=== PATIENT | male | born 1955 | race Caucasian/White ===

== ENCOUNTER → 2016-07-06 | Outpatient (CLI) | payer MEDICARE ==
[2016-07-06 19:04] LABS: ALT 34 U/L (21-72); AST 31 U/L (17-59); Alkaline Phosphatase 58 U/L (38-126); Anion Gap 12 mmol/L; Blood Urea Nitrogen 30 mg/dL (9-20); Calcium 10.1 mg/dL (8.4-10.2); Carbon Dioxide 27 mmol/L (22-30); Chloride 101 mmol/L (98-107); Cholesterol 122 mg/dL (<200); Glucose 97 mg/dL (74-99); HDL Cholesterol 40 mg/dL (40-60); Non-African American GFR(MDRD) 52 (>60 ml/min/1.73 sqM); Potassium 4.3 mmol/L (3.5-5.1); Sodium 140 mmol/L (137-145); Total Bilirubin 0.6 mg/dL (0.2-1.3); Triglycerides 124 mg/dL (<150)
[2016-07-06 19:43] LABS: Vitamin B12 466 pg/mL (239-931)
[2016-07-06 23:36] LABS: Hemoglobin A1C 5.5 % (4.2-6.1)
== END ==
LOC: MMGSC 11:37
PROVIDERS: ATTEND Family Medicine
DX: E78.5 Hyperlipidemia, unspecified (principal); R63.5 Abnormal weight gain; R53.83 Other fatigue
CPT/HCPCS: 36415; 80053; 80061; 82306; 82607; 83036; 84439; 84443; 99214

== ENCOUNTER → 2016-11-14 | Outpatient (CLI) | payer MEDICARE | LOC: MMGSC 14:16 | PROVIDERS: ATTEND Family Medicine | DX: N39.0 Urinary tract infection, site not specified (principal) | CPT/HCPCS: 87086 ==

== ENCOUNTER → 2017-10-15 | Outpatient (CLI) | payer MEDICARE ==
--- NOTE | 2017-10-15 21:47 | MR ---
EXAMINATION TYPE: MR lumbar spine wo/w con DATE OF EXAM: 10/15/2017 COMPARISON: 01/08/2015 HISTORY: 62-year-old male with pain, Postlaminectomy syndrome Technique: Multiplanar, multisequence images of the lumbar spine were obtained before and after admin istration of 12.5 mL intravenous Gadavist gadolinium contrast. FINDINGS: Ectatic upper abdominal aorta at 2.9 cm. Subcentimeter cyst posterior right kidney. Vertebral body heights are preserved and alignment is maintained. Conus medullaris is normal. Multilevel degenerative disc disease with variable disc desiccation and disc height loss, greatest at L5-S1. Bulging discs are present throughout and show interval increase as compared to 2014. Multilevel ligamentum flavum thickening and hypertrophic facet arthropathy throughout. Mild heterogeneous marrow signal without suspicious bone marrow placement. At T12-L1, there is a new broad-based posterior disc protrusion. Extruded and inferiorly migrated dis c fragment measuring 9 mm along the right posterior L1 endplate, refer to sagittal image 7 and axial image 26. This probably abuts the traversing right L1 nerve root. There is new moderate spinal canal stenosis at this level and similar mild left neuroforaminal stenosis. At L1-L2, increased diffuse disc bulge with superimposed posterior disc protrusion. Continued ligamen sandrine flavum thickening and prominent dorsal epidural fat. Changes cause worsening now moderate right n euroforaminal stenosis with moderate spinal canal stenosis. At L2/L3, is disc bulge with ligamentum flavum thickening and facet degenerative change. Changes incr eased from prior now with mild to moderate spinal canal stenosis. Mild bilateral neuroforaminal steno sis relatively similar. At L3-L4, ligamentum flavum thickening and hypertrophic facet arthropathy mildly narrowing the spinal canal. No significant neuroforaminal stenosis. Overall changes are similar. At L4-L5, diffuse disc bulge with hypertrophic facet arthropathy and ligamentum flavum thickening. Ov erall changes are similar with mild bilateral neuroforaminal stenosis. No significant spinal canal st enosis. At L5-S1, fused disc bulge with hypertrophic facet arthropathy. No significant spinal canal or forami nal stenosis. No suspicious enhancement within the spinal canal. IMPRESSION: 1. Multilevel degenerative disc disease as well as hypertrophic facet arthropathy and ligamentum flav um thickening. 2. There are new broad-based posterior disc protrusions at T12-L1, L1-L2, and L2-L3 further narrowing the spinal canal. This now causes moderate spinal canal stenosis at T12-L1 and L1-L2 and now mild to moderate at L2-L3. 3. Superimposed right paracentral disc extrusion at L1-L2 with a 9 mm inferiorly migrated disc fragme nt. This probably abuts the traversing right L1 nerve root. 4. Worsening, now moderate right neuroforaminal stenosis at L1-L2.
== END | disposition home or self-care (01) ==
LOC: RADMRIMAIN 10:18
PROVIDERS: ATTEND Pain Medicine Pain Medicine
DX: M48.05 Spinal stenosis, thoracolumbar region (principal); M99.73 Connective tissue and disc stenosis of intervertebral foramina of lumbar region; M51.25 Other intervertebral disc displacement, thoracolumbar region; M51.36 Other intervertebral disc degeneration, lumbar region; M46.96 Unspecified inflammatory spondylopathy, lumbar region
CPT/HCPCS: 72158; A9581

== ENCOUNTER 2023-04-25 15:22 | Emergency (ER) | payer MEDICARE ==
[2023-04-25] MEDS: KETOROLAC 15 MG/ML 1 ML VIAL IM STA (16:44)
--- NOTE | 2023-04-25 16:44 | ED ---
General Adult HPI - General Chief complaint: Fall Stated complaint: Fall Time Seen by Provider: 04/25/23 15:45 Source: patient, RN notes reviewed, old records reviewed Mode of arrival: ambulatory Limitations: no limitations - History of Present Illness Initial comments: This is a 67-year-old male who presents to the emergency department stating that 2 days ago he fell down 2 steps at home when coming out of the basement. Patient states he landed on his right lower back and hit his right elbow. Patient complains of right elbow pain and lower back and hip pain. Patient has been able to ambulate since that time and has full range of motion of his elbow. Patient denies hitting his head patient denies any neck pain. Patient denies any chest upper back or abdominal pain. - Related Data Previous Rx's Medication Instructions Recorded dexAMETHasone [Decadron] 0.75 mg PO DIRECTED #12 tablet 01/14/15 Ketorolac [Toradol] 10 mg PO Q6HR #15 tab 04/25/23 Allergies Allergy/AdvReac Type Severity Reaction Status Date / Time No Known Allergies Allergy Verified 04/25/23 15:37 Review of Systems ROS Statement: Those systems with pertinent positive or pertinent negative responses have been documented in the HPI. ROS Other: All systems not noted in ROS Statement are negative. Past Medical History Past Medical History: Hyperlipidemia, Hypertension, Thyroid Disorder Additional Past Medical History / Comment(s): back pain, low T History of Any Multi-Drug Resistant Organisms: None Reported Past Surgical History: Back Surgery, Cholecystectomy Additional Past Surgical History / Comment(s): aorta valve replacement Past Psychological History: Depression Smoking Status: Never smoker Past Alcohol Use History: None Reported Past Drug Use History: None Reported General Exam - General Exam Comments Initial Comments: GENERAL Patient is well-developed and well-nourished. Patient is in mild distress. EYES Patient's pupils are equal and round. Extraocular motion is intact SKIN Unremarkable NEURO The patient is alert and oriented -3 PYSCH Patient has normal interpersonal interactions. MUSCULOSKELETAL Patient is tenderness in the lumbosacral region on the right as well as some tenderness to the posterior right elbow patient has full range of motion of the hip knee and elbow. Limitations: no limitations Course Vital Signs 04/25/23 15:34 Temperature 97.9 F Pulse Rate 74 Respiratory 18 Rate Blood Pressure 112/71 O2 Sat by Pulse 98 Oximetry Medical Decision Making - Medical Decision Making Was pt. sent in by a medical professional or institution (DAVID Hooker, NETWORKING ADMINISTRATOR, urgent care, hospital, or senior care...) When possible be specific @ -No Did you speak to anyone other than the patient for history (EMS, parent, family, police, friend...)? What history was obtained from this source @ -No Did you review nursing and triage notes (agree or disagree)? Why? @ -I reviewed and agree with nursing and triage notes Were old charts reviewed (outside hosp., previous admission, EMS record, old EKG, old radiological studies, urgent care reports/EKG's, senior care records)? Report findings @ -No old charts were reviewed Differential Diagnosis (chest pain, altered mental status, abdominal pain women, abdominal pain men, vaginal bleeding, weakness, fever, dyspnea, syncope, headache, dizziness, GI bleed, back pain, seizure, CVA, palpatations, mental health, musculoskeletal)? @ -Differential Musculoskeletal Muscular strain, contusion, ligament sprain, fracture, arthritis, septic arthritis, bursitis, cellulitis, muscle spasm, nerve compression, DVT, arterial occlusion, herpes zoster, electrolyte abnormality, tumor.... This is not meant to be in all inclusive list EKG interpreted by me (3pts min.). @ -As above X-rays interpreted by me (1pt min.). @ -X-ray of the lumbar spine showed no acute abnormality, x-ray of the hip and pelvis shows no acute abnormality, x-ray of the elbow shows no acute abnormality. CT interpreted by me (1pt min.). @ -None done U/S interpreted by me (1pt. min.). @ -None done What testing was considered but not performed or refused? (CT, X-rays, U/S, labs)? Why? @ -None What meds were considered but not given or refused? Why? @ -None Did you discuss the management of the patient with other professionals (professionals i.e. DAVID Hooker, NETWORKING ADMINISTRATOR, lab, RT, psych nurse, mental health social worker, packaging materials inspector, teacher, operations officer afloat, case fitter)? Give summary @ -No Was smoking cessation discussed for >3mins.? @ -No Was critical care preformed (if so, how long)? @ -No Were there social determinants of health that impacted care today? How? (Homelessness, low income, unemployed, alcoholism, drug addiction, transportation, low edu. Level, literacy, decrease access to med. care, shelter, rehab)? @ -No Was there de-escalation of care discussed even if they declined (Discuss DNR or withdrawal of care, Hospice)? DNR status @ -No What co-morbidities impacted this encounter? (DM, HTN, Smoking, COPD, CAD, Cancer, CVA, ARF, Chemo, Hep., AIDS, mental health diagnosis, sleep apnea, morbid obesity)? @ -None Was patient admitted / discharged? Hospital course, mention meds given and route, prescriptions, significant lab abnormalities, going to OR and other pertinent info. @ -Patient received a Toradol shot it did not help relieve some of his pain. Patient's x-rays were all normal. Undiagnosed new problem with uncertain prognosis? @ -No Drug Therapy requiring intensive monitoring for toxicity (Heparin, Nitro, Insulin, Cardizem)? @ -No Were any procedures done? @ -No Diagnosis/symptom? @ -Lumbar strain Acute, or Chronic, or Acute on Chronic? @ -Acute Uncomplicated (without systemic symptoms) or Complicated (systemic symptoms)? @ -Uncomplicated Side effects of treatment? @ -No Exacerbation, Progression, or Severe Exacerbation? @ -No Poses a threat to life or bodily function? How? (Chest pain, USA, SC, pneumonia, PE, COPD, DKA, ARF, appy, cholecystitis, CVA, Diverticulitis, Homicidal, Suicidal, threat to staff... and all critical care pts) @ -No Diagnosis/symptom? @ -Contusion elbow Acute, or Chronic, or Acute on Chronic? @ -Acute Uncomplicated (without systemic symptoms) or Complicated (systemic symptoms)? @ -Uncomplicated Side effects of treatment? @ -None Exacerbation, Progression, or Severe Exacerbation] @ -No Poses a threat to life or bodily function? @ -No Disposition Clinical Impression: Elbow contusion, Fall, Lumbar strain Disposition: HOME SELF-CARE Condition: Good Instructions (If sedation given, give patient instructions): Fall Prevention (ED), Low Back Strain (ED) Prescriptions: Ketorolac [Toradol] 10 mg PO Q6HR #15 tab Is patient prescribed a controlled substance at d/c from ED?: No Referrals: Katie Álvarez MD [Primary Care Provider] - 1-2 days Time of Disposition: 18:14
--- NOTE | 2023-04-25 17:50 | XR ---
PROCEDURE: XR elbow complete RT - 3V DATE AND TIME: 04/25/2023 5:04 PM CLINICAL INDICATION: PH[facility]; Trauma TECHNIQUE: Department protocol COMPARISON: None FINDINGS: There is no fracture or malalignment. The soft tissues are unremarkable. Mild multifocal os teoarthrosis changes noted. IMPRESSION: NO ACUTE PROCESS.
--- NOTE | 2023-04-25 17:52 | XR ---
PROCEDURE: XR lumbosacral spine min 4V DATE AND TIME: 04/25/2023 5:09 PM CLINICAL INDICATION: PHH; fall TECHNIQUE: Department protocol COMPARISON: None FINDINGS: There is no fracture or malalignment. The soft tissues are unremarkable. There are markedly advanced spondylosis changes seen at all lumbar levels. IMPRESSION: NO ACUTE PROCESS.
--- NOTE | 2023-04-25 17:54 | XR ---
PROCEDURE: XR Hip RT and AP Pelvis - 3V DATE AND TIME: 04/25/2023 5:11 PM CLINICAL INDICATION: PHH; Trauma TECHNIQUE: Department protocol COMPARISON: None FINDINGS: There is no fracture or malalignment. The soft tissues are unremarkable. Relatively mild bi lateral hip osteoarthrosis changes noted IMPRESSION: NO ACUTE PROCESS.
[2023-04-25 18:30] VITALS: BP 114/67; PULSE 55; RESP 20; TEMP 97.8
== END 2023-04-25 18:27 | disposition home or self-care (01) ==
LOC: EC 15:22 → SUPCPDRO 15:22 → EC 18:27
DX: S39.012A Strain of muscle, fascia and tendon of lower back, initial encounter (principal); S50.01XA Contusion of right elbow, initial encounter; I10 Essential (primary) hypertension; Z86.59 Personal history of other mental and behavioral disorders; W10.9XXA Fall (on) (from) unspecified stairs and steps, initial encounter
CPT/HCPCS: 72110; 73502; 73080; 96372; 99284; J1885

== ENCOUNTER 2023-08-31 18:30 | Inpatient (IN) | payer MEDICARE ==
--- NOTE | 2023-08-31 18:46 | ED ---
Dizziness HPI - General Chief Complaint: Dizziness Stated Complaint: Dizziness,AMS Time Seen by Provider: 08/31/23 18:43 Source: patient, family, RN notes reviewed, old records reviewed Mode of arrival: wheelchair Limitations: no limitations - History of Present Illness Initial Comments: This is a 67-year-old male presenting for altered mental status feeling altered feels like he may be in a dream not in his body weakness lightheadedness dizzy not feeling well decreased appetite patient feels like he is in a dream MD Complaint: dizziness, lightheadedness -: days(s) Timing: gradual onset, intermittent Description: lightheadedness, near-syncope History of Same: No History of Trauma: No Severity: moderate Worsens With: nothing Associated Symptoms: confusion, malaise, weakness - Related Data Home Medications Medication Instructions Recorded Confirmed ALPRAZolam [Xanax] 1 mg PO DAILY PRN 09/01/23 09/01/23 Baclofen 10 mg PO HS PRN 09/01/23 09/01/23 FLUoxetine HCL [PROzac] 40 mg PO DAILY 09/01/23 09/01/23 HYDROcodone/APAP 10-325MG [[place] 1 tab PO BID PRN 09/01/23 09/01/23 10-325] Levothyroxine Sodium [Synthroid] 50 mcg PO DAILY 09/01/23 09/01/23 Metoprolol Succinate (ER) [Toprol 50 mg PO DAILY 09/01/23 09/01/23 XL] Pregabalin [Lyrica] 150 mg PO BID 09/01/23 09/01/23 Rivaroxaban [Xarelto] 20 mg PO W/SUPPER 09/01/23 09/01/23 Spironolactone [Aldactone] 25 mg PO BID 09/01/23 09/01/23 fentaNYL 100MCG/HR PATCH 1 patch TRANSDERM Q72H 09/01/23 09/01/23 [Duragesic 100MCG/HR] lisinopriL [Zestril] 5 mg PO DAILY 09/01/23 09/01/23 Previous Rx's Medication Instructions Recorded Atorvastatin [Lipitor] 40 mg PO HS #90 tablet 09/02/23 Allergies Allergy/AdvReac Type Severity Reaction Status Date / Time No Known Allergies Allergy Verified 09/01/23 10:28 Review of Systems ROS Statement: Those systems with pertinent positive or pertinent negative responses have been documented in the HPI. ROS Other: All systems not noted in ROS Statement are negative. Past Medical History Past Medical History: Hyperlipidemia, Hypertension, Thyroid Disorder Additional Past Medical History / Comment(s): back pain, low T History of Any Multi-Drug Resistant Organisms: None Reported Past Surgical History: Back Surgery, Cholecystectomy Additional Past Surgical History / Comment(s): aorta valve replacement Past Psychological History: Depression Smoking Status: Never smoker Past Alcohol Use History: None Reported Past Drug Use History: None Reported - Past Family History Mother Family Medical History: Hyperlipidemia General Exam Limitations: no limitations, altered mental status General appearance: alert, in no apparent distress, anxious Head exam: Present: atraumatic, normocephalic, normal inspection Eye exam: Present: normal appearance, PERRL, EOMI. Absent: scleral icterus, conjunctival injection, periorbital swelling ENT exam: Present: normal exam, mucous membranes moist Neck exam: Present: normal inspection. Absent: tenderness, meningismus, lymphadenopathy Respiratory exam: Present: normal lung sounds bilaterally. Absent: respiratory distress, wheezes, rales, rhonchi, stridor Cardiovascular Exam: Present: regular rate, normal rhythm, normal heart sounds. Absent: systolic murmur, diastolic murmur, rubs, gallop, clicks GI/Abdominal exam: Present: soft, normal bowel sounds. Absent: distended, tenderness, guarding, rebound, rigid Extremities exam: Present: normal inspection, full ROM, normal capillary refill. Absent: tenderness, pedal edema, joint swelling, calf tenderness Back exam: Present: normal inspection Neurological exam: Present: alert, oriented X3, CN II-XII intact Psychiatric exam: Present: normal affect, normal mood Skin exam: Present: warm, dry, intact, normal color. Absent: rash Course Vital Signs 08/31/23 08/31/23 08/31/23 18:32 18:39 19:52 Temperature 98.2 F Pulse Rate 80 108 H 82 Respiratory 20 18 14 Rate Blood Pressure 74/42 96/44 85/54 O2 Sat by Pulse 96 96 93 L Oximetry 08/31/23 08/31/23 21:00 22:02 Temperature 98.3 F Pulse Rate 78 92 Respiratory 18 18 Rate Blood Pressure 100/62 94/84 O2 Sat by Pulse 93 L 100 Oximetry - Reevaluation(s) Reevaluation #1: Medical records reviewed Reevaluation #2: Patient symptoms unchanged Reevaluation #3: Informed of results questions answered Reevaluation #4: Was pt. sent in by a medical professional or institution (DAVID Hooker, DEPARTMENT HEAD COLLEGE OR UNIVERSITY, urgent care, hospital, or custodial...) When possible be specific @ -no Did you speak to anyone other than the patient for history (EMS, parent, family, police, friend...)? What history was obtained from this source @ -no Did you review nursing and triage notes (agree or disagree)? Why? @ -agree Are old charts reviewed (outside hosp., previous admission, EMS record, old EKG, old radiological studies, urgent care reports/EKG's, custodial records)? Report findings @ -yes Differential Diagnosis (chest pain, altered mental status, abdominal pain women, abdominal pain men, vaginal bleeding, weakness, fever, dyspnea, syncope, headache, dizziness, GI bleed, back pain, seizure, CVA, palpatations, mental health, musculoskeletal)? @ -prior EKG interpreted by me (3pts min.). @ -yes X-rays interpreted by me (1pt min.). @ -yes negative for acute disease CT interpreted by me (1pt min.). @ -no U/S interpreted by me (1pt. min.). @ -no What testing was considered but not performed or refused? (CT, X-rays, U/S, labs)? Why? @ -none What meds were considered but not given or refused? Why? @ -none Did you discuss the management of the patient with other professionals (professionals i.e. DAVID Hooker, DEPART[employer]IV[employer], lab, RT, psych nurse, social work program coordinator, nutrition technician, teacher, examining officer, catalytic case operator)? Give summary @ -no Was smoking cessation discussed for >3mins.? @ -no Was critical care preformed (if so, how long)? @ -no Were there social determinants of health that impacted care today? How? (Homelessness, low income, unemployed, alcoholism, drug addiction, transportation, low edu. Level, literacy, decrease access to med. care, halfway, rehab)? @ -none Was there de-escalation of care discussed even if they declined (Discuss DNR or withdrawal of care, Hospice)? DNR status @ -no What co-morbidities impacted this encounter? (DM, HTN, Smoking, COPD, CAD, Cancer, CVA, ARF, Chemo, Hep., AIDS, mental health diagnosis, sleep apnea, morbid obesity)? @ -none Was patient admitted / discharged? Hospital course, mention meds given and route, prescriptions, significant lab abnormalities, going to OR and other [facility] [place] info. @ - 67 male with altered mental status dehydration hypotension abnormal electrolytes, patient admitted for further supportive care and evaluation Admitted Undiagnosed new problem with uncertain prognosis? @ -no Drug Therapy requiring intensive monitoring for toxicity (Heparin, Nitro, In sulin, Cardizem)? @ -no Were any procedures done? @ -no Diagnosis/symptom? @ -Altered mental status Acute, or Chronic, or Acute on Chronic? @ -Acute Uncomplicated (without systemic symptoms) or Complicated (systemic symptoms)? @ -Complicated Side effects of treatment? @ -no Exacerbation, Progression, or Severe Exacerbation? @ -exacerbation Poses a threat to life or bodily function? How? (Chest pain, USA, MS, pneumonia, PE, COPD, DKA, ARF, appy, cholecystitis, CVA, Diverticulitis, Homicidal, Suicidal, threat to staff... and all critical care pts) @ -yes extremes of age Reevaluation #5: Differential Dizziness: Benign paroxysmal positional Vertigo, Menieres disease, otitis media, acoustic neuroma, vertebrobasilar insufficiency, cerebellar stroke, encephalitis, hypovolemic, arrhythmia, coronary artery syndrome, anemia, this is not meant to be an all-inclusive list - Consultations Consultation #1: Admitting physicians who agreed to admit this patient EKG Findings - EKG Comments: EKG Findings:: EKG is A-fib 103 QRS 102 QTc 396 - EKG Results: EKG: interpreted by BRYCE Medical Decision Making - Medical Decision Making 67 male with altered mental status dehydration hypotension abnormal electrolytes, patient admitted for further supportive care and evaluation - Lab Data Result diagrams: 09/01/23 06:10 09/02/23 09:26 Lab Results 08/31/23 08/31/23 08/31/23 Range/Units 19:19 19:19 19:19 WBC 11.0 H (3.8-10.6) k/uL RBC 4.27 L (4.30-5.90) m/uL Hgb 13.9 (13.0-17.5) gm/dL Hct 42.9 (39.0-53.0) % MCV 100.4 H (80.0-100.0) fL MCH 32.6 (25.0-35.0) pg MCHC 32.4 (31.0-37.0) g/dL RDW 13.1 (11.5-15.5) % Plt Count 207 (150-450) k/uL MPV 7.8 Neutrophils % 69 % Lymphocytes % 18 % Monocytes % 8 % Eosinophils % 2 % Basophils % 1 % Neutrophils # 7.6 (1.3-7.7) k/uL Lymphocytes # 2.0 (1.0-4.8) k/uL Monocytes # 0.9 (0-1.0) k/uL Eosinophils # 0.2 (0-0.7) k/uL Basophils # 0.1 (0-0.2) k/uL PT 14.6 H (10.0-12.5) sec INR 1.4 H (<1.2) APTT 32.8 H (22.0-30.0) sec Sodium 143 (137-145) mmol/L Potassium 5.7 H (3.5-5.1) mmol/L Chloride 110 H (98-107) mmol/L Carbon Dioxide 22 (22-30) mmol/L Anion Gap 11 mmol/L BUN 35 H (9-20) mg/dL Creatinine 2.65 H (0.66-1.25) mg/dL Est GFR (CKD-EPI)AfAm 28 (>60 ml/min/1.73 sqM) Est GFR (CKD-EPI)NonAf 24 (>60 ml/min/1.73 sqM) Glucose 85 (74-99) mg/dL Plasma Lactic Acid Kevan (0.7-2.0) mmol/L Calcium 10.6 H (8.4-10.2) mg/dL Phosphorus 4.9 H (2.5-4.5) mg/dL Magnesium 2.0 (1.6-2.3) mg/dL Total Bilirubin 1.0 (0.2-1.3) mg/dL AST 44 (17-59) U/L ALT 35 (4-49) U/L Alkaline Phosphatase 46 (38-126) U/L Troponin I (0.000-0.034) ng/mL NT-Pro-B Natriuret Pep 5100 pg/mL Total Protein 7.0 (6.3-8.2) g/dL Albumin 4.5 (3.5-5.0) g/dL 08/31/23 08/31/23 Range/Units 19:19 19:19 WBC (3.8-10.6) k/uL RBC (4.30-5.90) m/uL Hgb (13.0-17.5) gm/dL Hct (39.0-53.0) % MCV (80.0-100.0) fL MCH (25.0-35.0) pg MCHC (31.0-37.0) g/dL RDW (11.5-15.5) % Plt Count (150-450) k/uL MPV Neutrophils % % Lymphocytes % % Monocytes % % Eosinophils % % Basophils % % Neutrophils # (1.3-7.7) k/uL Lymphocytes # (1.0-4.8) k/uL Monocytes # (0-1.0) k/uL Eosinophils # (0-0.7) k/uL Basophils # (0-0.2) k/uL PT (10.0-12.5) sec INR (<1.2) APTT (22.0-30.0) sec Sodium (137-145) mmol/L Potassium (3.5-5.1) mmol/L Chloride (98-107) mmol/L Carbon Dioxide (22-30) mmol/L Anion Gap mmol/L BUN (9-20) mg/dL Creatinine (0.66-1.25) mg/dL Est GFR (CKD-EPI)AfAm (>60 ml/min/1.73 sqM) Est GFR (CKD-EPI)NonAf (>60 ml/min/1.73 sqM) Glucose (74-99) mg/dL Plasma Lactic Acid Kevan 1.2 (0.7-2.0) mmol/L Calcium (8.4-10.2) mg/dL Phosphorus (2.5-4.5) mg/dL Magnesium (1.6-2.3) mg/dL Total Bilirubin (0.2-1.3) mg/dL AST (17-59) U/L ALT (4-49) U/L Alkaline Phosphatase (38-126) U/L Troponin I 0.156 H* (0.000-0.034) ng/mL NT-Pro-B Natriuret Pep pg/mL Total Protein (6.3-8.2) g/dL Albumin (3.5-5.0) g/dL - EKG Data -: EKG Interpreted by Me - Radiology Data Radiology results: report reviewed (Chest x-ray is negative for acute disease), image reviewed Disposition Clinical Impression: Dehydration, MICHAEL (acute kidney injury), Hyperkalemia, Orthostatic hypotension, Altered mental status Disposition: ADMITTED IP TO THIS [facility] Condition: Stable Is patient prescribed a controlled substance at d/c from ED?: No Time of Disposition: 21:30
[2023-08-31] MEDS: SODIUM CHLORIDE 0.9% 1,000 ML IV STA (19:25)
[2023-08-31 19:34] LABS: Basophils # (A) 0.1 k/uL (0-0.2); Basophils % (A) 1 %; Eosinophils # (A) 0.2 k/uL (0-0.7); Eosinophils % (A) 2 %; HCT 42.9 % (39.0-53.0); HGB 13.9 gm/dL (13.0-17.5); Lymphocytes % (A) 18 %; MCH 32.6 pg (25.0-35.0); MCHC 32.4 g/dL (31.0-37.0); MCV 100.4 fL (80.0-100.0); Mean Platelet Volume 7.8; Monocytes # (A) 0.9 k/uL (0-1.0); Monocytes % (A) 8 %; Neutrophils # (A) 7.6 k/uL (1.3-7.7); Neutrophils % (A) 69 %; Platelet Count 207 k/uL (150-450); RBC 4.27 m/uL (4.30-5.90); RDW 13.1 % (11.5-15.5)
[2023-08-31 19:47] LABS: ALT 35 U/L (4-49); AST 44 U/L (17-59); African American GFR (CKD) 28 (>60 ml/min/1.73 sqM); Albumin 4.5 g/dL (3.5-5.0); Alkaline Phosphatase 46 U/L (38-126); Anion Gap 11 mmol/L; Blood Urea Nitrogen 35 mg/dL (9-20); Calcium 10.6 mg/dL (8.4-10.2); Carbon Dioxide 22 mmol/L (22-30); Chloride 110 mmol/L (98-107); Glucose 85 mg/dL (74-99); Non-African American GFR(CKD) 24 (>60 ml/min/1.73 sqM); Phosphorus 4.9 mg/dL (2.5-4.5); Potassium 5.7 mmol/L (3.5-5.1); Sodium 143 mmol/L (137-145)
[2023-08-31 19:56] LABS: NT-Pro-B-Type Natriuretic Pept 5100 pg/mL
[2023-08-31 20:03] LABS: INR 1.4 (<1.2); Partial Thromboplastin Time 32.8 sec (22.0-30.0); Prothrombin Time 14.6 sec (10.0-12.5)
[2023-08-31] MEDS ORDERED: NALOXONE 0.4 MG/ML 1 ML VIAL IV PRN (21:25)
[2023-08-31] MEDS ORDERED: ONDANSETRON 4 MG/2 ML VIAL IVP PRN (21:25)
[2023-08-31] MEDS ORDERED: CALCIUM CHLORIDE 0.5 GM in SODIUM CHLORIDE 0.9% 50 ML IVPB ONE (21:36)
[2023-08-31] MEDS: SODIUM CHLORIDE 0.9% 1,000 ML IV SCH (21:38)
[2023-08-31] MEDS: SODIUM ZIRCONIUM CYCLOSILICATE 10 GM PACKET PO ONE (21:52)
[2023-08-31] MEDS: DEXTROSE 50% SYRINGE 50 ML IVP STA (21:54)
[2023-08-31] MEDS: INSULIN REGULAR 100 UNIT/ML VIAL (IV) IV ONE (21:56)
[2023-08-31] MEDS: SODIUM BICARB 8.4% 50 ML SYR (1 MEQ/ML) IV STA (21:57)
[2023-08-31] MEDS: CALCIUM GLUCONATE IN NACL 1 GM in SALINE 1 100ML.BAG IVPB ONE (22:01)
[2023-08-31 22:07] LABS: Glucose,Whole Blood 113 mg/dL (70-110)
--- NOTE | 2023-08-31 22:07 | XR ---
EXAMINATION TYPE: XR chest 1V portable DATE OF EXAM: 08/31/2023 COMPARISON: NONE HISTORY: Shortness of breath TECHNIQUE: Frontal and lateral views of the chest are obtained. FINDINGS: Scattered senescent parenchymal changes noted. Hyperinflation compatible with COPD. No evidence for infiltrate. No evidence for atelectasis. Heart size is stable. Mediastinal structures are stable and grossly unremarkable. No evidence for hilar prominence. Degenerative changes dorsal spine. IMPRESSION: 1. No evidence for acute pulmonary disease.
[2023-09-01] MEDS: HYDROcodone/APAP 5-325MG 1 EACH TAB PO STA (00:38)
--- NOTE | 2023-09-01 01:02 | P.HPIM ---
History of Present Illness H&P Date: 08/31/23 Patient is a 67-year-old male with a PMH of hypertension, hyperlipidemia, who presents to the emergency room brought in by family members for acting like himself. Patient reports that he was at a car show earlier today with his daughter when she noticed that he was not acting like himself and was confused. The patient was reportedly unaware of where he was. He does report not recalling the events of the day but had no additional complaints. Does state that his appetite has somewhat been diminished over the past several days. Denies experiencing chest discomfort, shortness of breath, fever, chills, cough, nausea, vomiting, abdominal pain, diarrhea. Chest x-ray in the emergency room was unremarkable with EKG showing a flutter at 103 bpm with an incomplete right bundle branch block as reviewed by me. Laboratory evaluation revealed a potassium of 5.7, troponin 0.156, proBNP 5100, creatinine 2.65 (baseline 1.2), with WBC count 11.0. ED documentation reviewed and case discussed with ED provider. Review of systems: Pertinent positives and negatives as discussed in HPI, a complete review of systems was performed and all other systems are negative. Physical examination: Vital signs reviewed General: non toxic, no distress, appears at stated age, obese Derm: no unusual rashes/lesions, warm Head: atraumatic, normocephalic, symmetric Eyes: Right eye exotropia with otherwise EOMI, no lid lag, anicteric sclera, pupils equal round reactive to light ENT: Nose and ears atraumatic Neck: No cervical lymphadenopathy, trachea midline, supple Mouth: no lip lesion, mucus membranes moist Cardiovascular: S1S2 reg, no murmur, positive dorsalis pedis pulse bilateral, no edema Lungs: CTA bilateral, no rhonchi, no rales, no accessory muscle use Abdominal: soft, nontender to palpation, no guarding Ext: muscle strength 5 out of 5 in all 4 extremities grossly, no gross muscle atrophy, no contractures, Neuro: CN II-XI grossly intact, no gross focal neuro deficits Psych: Alert, oriented, appropriate affect Assessment: Altered mental status, unclear etiology, suspect may be due to dehydration and hypotension MICHAEL, suspect due to dehydration Elevated troponin, likely type II NH, currently denying chest discomfort or shortness of breath Elevated proBNP without overt fluid overload Hyperkalemia, likely due to MICHAEL Imaging: Chest x-ray in the emergency room was unremarkable with EKG showing a flutter at 103 bpm with an incomplete right bundle branch block as reviewed by me. Data Review: Laboratory evaluation revealed a potassium of 5.7, troponin 0.156, proBNP 5100, creatinine 2.65 (baseline 1.2), with WBC count 11.0. Plan: Continue with IV fluids normal saline 75 cc/h Nephrology consulted Monitor BMP Status post hyperkalemia cocktail in the emergency room Obtain echocardiogram Trend troponin for now Cardiac monitoring DVT prophylaxis: Lovenox subcu The patient is admitted with an anticipated greater than 2 midnight stay for evaluation of ultimately status CODE STATUS: Full Code Discussed with: Patient Anticipated discharge place: Home Past Medical History Past Medical History: Atrial Fibrillation, Hyperlipidemia, Hypertension, Thyroid Disorder Additional Past Medical History / Comment(s): back pain, low T, afib, low heart rate History of Any Multi-Drug Resistant Organisms: None Reported Past Surgical History: Back Surgery, Cholecystectomy Additional Past Surgical History / Comment(s): aorta valve replacement, pa cemaker Past Anesthesia/Blood Transfusion Reactions: No Reported Reaction Past Psychological History: Anxiety, Depression Smoking Status: Never smoker Past Alcohol Use History: None Reported Past Drug Use History: None Reported - Past Family History Mother Family Medical History: Hyperlipidemia Medications and Allergies Home Medications Medication Instructions Recorded Confirmed Type dexAMETHasone [Decadron] 0.75 mg PO DIRECTED #12 tablet 01/14/15 Rx Ketorolac [Toradol] 10 mg PO Q6HR #15 tab 04/25/23 Rx Allergies Allergy/AdvReac Type Severity Reaction Status Date / Time No Known Allergies Allergy Verified 08/31/23 18:40 Physical Exam Vitals: Vital Signs Temp Pulse Pulse Resp BP BP Pulse Ox 08/31/23 23:01 79 112/73 97 08/31/23 22:18 97.4 F L 76 16 107/73 97 08/31/23 22:02 98.3 F 92 18 94/84 100 08/31/23 21:00 78 18 100/62 93 L 08/31/23 19:52 82 14 85/54 93 L 08/31/23 18:39 108 H 18 96/44 96 08/31/23 18:32 98.2 F 80 20 74/42 96 Intake and Output 08/31/23 08/31/23 09/01/23 14:59 22:59 06:59 Other: Weight 118.841 kg Results CBC & Chem 7: 08/31/23 19:19 08/31/23 19:19 Labs: Abnormal Lab Results - Last 24 Hours (Table) 08/31/23 08/31/23 08/31/23 Range/Units 19:19 19:19 19:19 WBC 11.0 H (3.8-10.6) k/uL RBC 4.27 L (4.30-5.90) m/uL MCV 100.4 H (80.0-100.0) fL PT 14.6 H (10.0-12.5) sec INR 1.4 H (<1.2) APTT 32.8 H (22.0-30.0) sec Potassium 5.7 H (3.5-5.1) mmol/L Chloride 110 H (98-107) mmol/L BUN 35 H (9-20) mg/dL Creatinine 2.65 H (0.66-1.25) mg/dL POC Glucose (mg/dL) (70-110) mg/dL Calcium 10.6 H (8.4-10.2) mg/dL Phosphorus 4.9 H (2.5-4.5) mg/dL Troponin I (0.000-0.034) ng/mL 08/31/23 08/31/23 Range/Units 19:19 22:04 WBC (3.8-10.6) k/uL RBC (4.30-5.90) m/uL MCV (80.0-100.0) fL PT (10.0-12.5) sec INR (<1.2) APTT (22.0-30.0) sec Potassium (3.5-5.1) mmol/L Chloride (98-107) mmol/L BUN (9-20) mg/dL Creatinine (0.66-1.25) mg/dL POC Glucose (mg/dL) 113 H (70-110) mg/dL Calcium (8.4-10.2) mg/dL Phosphorus (2.5-4.5) mg/dL Troponin I 0.156 H* (0.000-0.034) ng/mL Thrombosis Risk Factor Assmnt - Choose All That Apply Any of the Below Risk Factors Present?: Yes Each Factor Represents 1 point: Obesity (BMI >25) Other Risk Factors: Yes Each Risk Factor Represents 2 Points: Age 61-74 years Thrombosis Risk Factor Assessment Total Risk Factor Score: 3 Thrombosis Risk Factor Assessment Level: Moderate Risk
[2023-09-01 06:40] LABS: Basophils # (A) 0.1 k/uL (0-0.2); Basophils % (A) 1 %; Eosinophils # (A) 0.1 k/uL (0-0.7); Eosinophils % (A) 2 %; HCT 37.5 % (39.0-53.0); HGB 12.4 gm/dL (13.0-17.5); Lymphocytes % (A) 28 %; MCH 33.1 pg (25.0-35.0); MCV 100.2 fL (80.0-100.0); Mean Platelet Volume 7.8; Monocytes # (A) 0.6 k/uL (0-1.0); Monocytes % (A) 8 %; Neutrophils # (A) 4.1 k/uL (1.3-7.7); Neutrophils % (A) 58 %; Platelet Count 166 k/uL (150-450); RBC 3.74 m/uL (4.30-5.90); RDW 13.1 % (11.5-15.5)
[2023-09-01 07:03] LABS: ALT 32 U/L (4-49); AST 38 U/L (17-59); African American GFR (CKD) 45 (>60 ml/min/1.73 sqM); Albumin 3.7 g/dL (3.5-5.0); Alkaline Phosphatase 41 U/L (38-126); Anion Gap 6 mmol/L; Blood Urea Nitrogen 33 mg/dL (9-20); Calcium 9.8 mg/dL (8.4-10.2); Carbon Dioxide 25 mmol/L (22-30); Chloride 107 mmol/L (98-107); Glucose 78 mg/dL (74-99); Non-African American GFR(CKD) 39 (>60 ml/min/1.73 sqM); Phosphorus 3.5 mg/dL (2.5-4.5); Potassium 4.5 mmol/L (3.5-5.1); Sodium 138 mmol/L (137-145); Total Bilirubin 1.2 mg/dL (0.2-1.3); Total Protein 5.9 g/dL (6.3-8.2)
[2023-09-01] MEDS: ENOXAPARIN 40 MG/0.4 ML SYRINGE SQ SCH (09:37)
--- NOTE | 2023-09-01 11:32 | P.NPCON ---
History of Present Illness - Reason for Consult acute renal failure - History of Present Illness Reason for consultation: Acute kidney injury History of present illness: Patient is a 67-year-old male seen in renal consultation for acute kidney injury. Creatinine on admission was 2.65 and is improved to 1.79 today. Patient came to the hospital due to feeling 'off'. Patient states he felt that everything was like a dream. He was found to be confused by his family member and brought to the hospital. Patient noted to be quite hypotensive with blood pressure as low as 74/42 this admission. He did receive a liter of normal saline bolus and is now maintained on normal saline at 75 cc an hour. He also required straight catheterization due to bladder scan revealing a volume of 600 cc overnight. He was taking antihypertensives including lisinopril and spironolactone at home. He was also on Lasix. Denies gross hematuria or dysuria. No vomiting or diarrhea. Denies regular use of nonsteroidals. Patient states his sister has chronic kidney disease but is not on hemodialysis. Vital signs are stable. General: No acute distress. HEENT: Head exam is unremarkable. LUNGS: No audible rhonchi or wheezes. HEART: Rate and Rhythm are regular. ABDOMEN: Nontender. EXTREMITITES: No edema. Past Medical History Past Medical History: Atrial Fibrillation, Hyperlipidemia, Hypertension, Thyroid Disorder Additional Past Medical History / Comment(s): back pain, low T, afib, low heart rate History of Any Multi-Drug Resistant Organisms: None Reported Past Surgical History: Back Surgery, Cholecystectomy Additional Past Surgical History / Comment(s): aorta valve replacement, pacemaker Past Anesthesia/Blood Transfusion Reactions: No Reported Reaction Past Psychological History: Anxiety, Depression Smoking Status: Never smoker Past Alcohol Use History: None Reported Past Drug Use History: None Reported - Past Family History Mother Family Medical History: Hyperlipidemia Medications and Allergies Home Medications Medication Instructions Recorded Confirmed Type ALPRAZolam [Xanax] 1 mg PO DAILY PRN 09/01/23 09/01/23 History Baclofen 10 mg PO HS PRN 09/01/23 09/01/23 History FLUoxetine HCL [PROzac] 40 mg PO DAILY 09/01/23 09/01/23 History Furosemide [Lasix] 20 mg PO BID 09/01/23 09/01/23 History HYDROcodone/APAP 10-325MG [Hillman 1 tab PO BID PRN 09/01/23 09/01/23 History 10-325] Levothyroxine Sodium [Synthroid] 50 mcg PO DAILY 09/01/23 09/01/23 History Metoprolol Succinate (ER) [Toprol 50 mg PO DAILY 09/01/23 09/01/23 History Xl] Potassium Chloride ER [K-Dur 20] 20 meq PO DAILY 09/01/23 09/01/23 History Pregabalin [Lyrica] 150 mg PO BID 09/01/23 09/01/23 History Rivaroxaban [Xarelto] 20 mg PO W/SUPPER 09/01/23 09/01/23 History Simvastatin [Zocor] 40 mg PO HS 09/01/23 09/01/23 History Spironolactone [Aldactone] 25 mg PO BID 09/01/23 09/01/23 History fentaNYL 100MCG/HR PATCH 1 patch TRANSDERM Q72H 09/01/23 09/01/23 History [Duragesic 100MCG/HR] lisinopriL [Zestril] 5 mg PO DAILY 09/01/23 09/01/23 History Allergies Allergy/AdvReac Type Severity Reaction Status Date / Time No Known Allergies Allergy Verified 09/01/23 10:28 Physical Exam Vitals: Vital Signs Temp Pulse Pulse Resp BP BP Pulse Ox 09/01/23 09:31 95 09/01/23 08:20 97.9 F 75 18 113/69 95 09/01/23 03:30 97.8 F 74 18 94/56 97 08/31/23 23:01 79 112/73 97 08/31/23 22:18 97.4 F L 76 16 107/73 97 08/31/23 22:02 98.3 F 92 18 94/84 100 08/31/23 21:00 78 18 100/62 93 L 08/31/23 19:52 82 14 85/54 93 L 08/31/23 18:39 108 H 18 96/44 96 08/31/23 18:32 98.2 F 80 20 74/42 96 Intake and Output 08/31/23 09/01/23 09/01/23 22:59 06:59 14:59 Intake Total 118 Output Total 700 Balance -700 118 Intake: Oral 118 Output: Urine 700 Straight 700 Other: Weight 118.841 kg 115.5 kg Results - Lab Results Most recent lab results Calcium 9.8 mg/dL (8.4-10.2) 09/01/23 06:10 Phosphorus 3.5 mg/dL (2.5-4.5) 09/01/23 06:10 Magnesium 2.0 mg/dL (1.6-2.3) 09/01/23 06:10 09/01/23 06:10 09/01/23 06:10 Assessment and Plan Plan: Assessment: 1. Acute kidney injury secondary to ATN secondary to hypotension. Creatinine 2.65 on admission and is 1.79 today. Creatinine 1.2 dated January 07, 2023. 2. Hyperkalemia secondary to acute kidney injury and lisinopril and Aldactone. Improved with medical management. 3. Benign hypertension. Currently controlled. 4. History of aortic valve replacement. Plan: Maintain IV fluids. Check renal ultrasound. Repeat bladder scan to make sure no urinary retention. Insert Reid catheter if needed. Continue to hold antihypertensives and diuretics. Check UA. Avoid nephrotoxins. Continue to monitor renal function and urine output. Follow-up echocardiogram. Urine drug screen also pending. Thank you for the consultation. I will continue to follow the patient with you during his hospital stay.
[2023-09-01] MEDS ORDERED: ALPRAZolam 1 MG TAB PO PRN (12:07)
[2023-09-01] MEDS ORDERED: BACLOFEN 10 MG TAB PO PRN (12:07)
[2023-09-01] MEDS ORDERED: METOPROLOL SUCCINATE (ER) 50 MG TAB.ER.24H PO SCH (12:15)
[2023-09-01 12:35] LABS: Appearance,Urine Clear (Clear); Bilirubin,Urine Negative (Negative); Blood,Urine Negative (Negative); Color,Urine Colorless; Glucose,Urine (UA) Negative (Negative); Ketones,Urine Negative (Negative); Leukocyte Esterase,Urine Negative (Negative); Nitrite,Urine Negative (Negative); PH, Urine 5.5 (5.0-8.0); Protein,Urine Negative (Negative); Specific Gravity,Urine 1.012 (1.001-1.035); Urobilinogen,Urine <2.0 mg/dL (<2.0)
[2023-09-01 12:57] LABS: Amphetamine Screen,Urine Not Detected (NotDetected); Barbiturate Screen,Urine Not Detected (NotDetected); Benzodiazepines Screen,Urine Not Detected (NotDetected); Cocaine Screen,Urine Not Detected (NotDetected); Methadone Screen, Urine Not Detected (NotDetected); Opiate Screen,Urine Not Detected (NotDetected); Oxycodone Screen, Urine Not Detected (NotDetected); Phencyclidine Screen,Urine Not Detected (NotDetected); Tricyclic Antidepressant,Urine Not Detected (NotDetected); Urn Cannabinoid Scrn Not Detected (NotDetected)
[2023-09-01] MEDS: LEVOTHYROXINE 50 MCG TAB PO SCH (13:26)
[2023-09-01] MEDS: FLUoxetine HCL 20 MG CAP PO SCH (13:26)
--- NOTE | 2023-09-01 13:58 | P.PN ---
Subjective Progress Note Date: 09/01/23 67-year-old male with a PMH of hypertension, hyperlipidemia, who presents to the emergency room brought in by family members for acting like himself. Patient reports that he was at a car show earlier today with his daughter when she noticed that he was not acting like himself and was confused. In the ED he underwent extensive evaluation. BP 74/42, HR 80, T 98.2, RR 20, 96% on RA. HR as high as 108 in the ED. CBC, Coag panel, CMP significant for WBC 11, RBC 4.27, MCV 100.4, PT 14.6, INR 1.4, APTT 32.8, K 5.7, Cl 110, BUN 35, Cr 2.65, Ca 10.6, Phos 4.9. Lactic acid 1.2. BNP 5100. Mag 2.0. Troponin 0.156, 0.077. EKG atrial flutter with RVR and RBBB. CXR negative. Patient is admitted for further workup and management. 08/31 Patient was seen and examined. Patient reports intermittent confusion since a prolonged cardiac arrest 20 years ago. 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 He reports feeling like he was dreaming yesterday. 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 Symptoms of confusion have mostly resolved today. Overnight found to be retaining 600 cc of urine requiring straight cath. CBC RBC 3.74, Hg 12.4, Hct 37.5, MCV 100.2. CMP Na 33, Cr 1.79. Troponin 0.072. General: non toxic, no distress, appears at stated age Derm: warm, dry Head: atraumatic, normocephalic, symmetric Eyes: EOMI, no lid lag, anicteric sclera Mouth: no lip lesion, mucus membranes moist Cardiovascular: S1S2 reg, no murmur Lungs: CTA bilateral, no rhonchi, no rales , no accessory muscle use Abdominal: soft, nontender to palpation, no guarding, no appreciable organomegaly Ext: no gross muscle atrophy, no edema, no contractures Neuro: CN II-XI grossly intact bedside right CN 3 palsy, no focal neuro deficit s, intentional tremor Psych: Alert, oriented, appropriate affect Based on my assessment of this patient, this patient meets a high complexity level of care. Altered mental status: Obtain B12, Folate, TSH and Ammonia. Obtain UA and UDS. Fall precautions. SIRS: No signs of obvious infection. Monitor fever profile. Hypotension: Possible related to dehydration. Hold Lisinopril, Metoprolol and Aldactone. Continue NS at 75 cc/hr. MICHAEL on CKD: Prerenal from hypotension and obstructive. Bladder scan PRN and Reid if necessary. IV hydration as above. Obtain renal and bladder US. Nephrology consult. Troponin elevation: Flat. Likely troponin leak from CKD. Obtain Echo. Cardiology consult. Macrocytic anemia: B12 and Folate as above. History of Atrial fibrillation: Xarelto 20 mg PO QHS. Hold Metoprolol for now. Chronic conditions include h/o prolonged cardiac arrest, CN 3 palsy and intentional tremor Resolved: Hyperkalemia, Hypercalcemia CODE STATUS: FULL CODE DVT Prophylaxis: Switch Lovenox to Heparin SQ GI Prophylaxis: Designated medical POA if patient is not able to make medical decisions for themselves: I have reviewed the following pricing consultant notes: Nephrology I have reviewed the results of the following tests: CBC, CMP, Trop. I have ordered the following tests: B12, Folate, TSH, Ammonia, UA, UDS, renal US I have discussed the care of this patient with the following independent historian: I have independently interpreted the following test below: I have discussed the management of this patient with the following physician: Objective - Vital Signs Vital signs: Vital Signs Temp 97.8 F 09/01/23 03:30 Pulse 74 09/01/23 03:30 Resp 18 09/01/23 03:30 BP 94/56 09/01/23 03:30 Pulse Ox 97 09/01/23 03:30 FiO2 Intake & Output 08/31/23 09/01/23 09/01/23 18:59 06:59 18:59 Intake Total 118 Output Total 700 Balance -700 118 Weight 118.841 kg 115.5 kg Intake: Oral 118 Output: Urine 700 Straight 700 - Labs CBC & Chem 7: 09/01/23 06:10 09/01/23 06:10 Labs: Abnormal Lab Results - Last 24 Hours (Table) 08/31/23 08/31/23 08/31/23 Range/Units 19:19 19:19 19:19 WBC 11.0 H (3.8-10.6) k/uL RBC 4.27 L (4.30-5.90) m/uL Hgb (13.0-17.5) gm/dL Hct (39.0-53.0) % MCV 100.4 H (80.0-100.0) fL PT 14.6 H (10.0-12.5) sec INR 1.4 H (<1.2) APTT 32.8 H (22.0-30.0) sec Potassium 5.7 H (3.5-5.1) mmol/L Chloride 110 H (98-107) mmol/L BUN 35 H (9-20) mg/dL Creatinine 2.65 H (0.66-1.25) mg/dL POC Glucose (mg/dL) (70-110) mg/dL Calcium 10.6 H (8.4-10.2) mg/dL Phosphorus 4.9 H (2.5-4.5) mg/dL Troponin I (0.000-0.034) ng/mL Total Protein (6.3-8.2) g/dL 08/31/23 08/31/23 09/01/23 Range/Units 19:19 22:04 01:50 WBC (3.8-10.6) k/uL RBC (4.30-5.90) m/uL Hgb (13.0-17.5) gm/dL Hct (39.0-53.0) % MCV (80.0-100.0) fL PT (10.0-12.5) sec INR (<1.2) APTT (22.0-30.0) sec Potassium (3.5-5.1) mmol/L Chloride (98-107) mmol/L BUN (9-20) mg/dL Creatinine (0.66-1.25) mg/dL POC Glucose (mg/dL) 113 H (70-110) mg/dL Calcium (8.4-10.2) mg/dL Phosphorus (2.5-4.5) mg/dL Troponin I 0.156 H* 0.077 H* (0.000-0.034) ng/mL Total Protein (6.3-8.2) g/dL 09/01/23 09/01/23 09/01/23 Range/Units 06:10 06:10 06:10 WBC (3.8-10.6) k/uL RBC 3.74 L (4.30-5.90) m/uL Hgb 12.4 L (13.0-17.5) gm/dL Hct 37.5 L (39.0-53.0) % MCV 100.2 H (80.0-100.0) fL PT (10.0-12.5) sec INR (<1.2) APTT (22.0-30.0) sec Potassium (3.5-5.1) mmol/L Chloride (98-107) mmol/L BUN 33 H (9-20) mg/dL Creatinine 1.79 H (0.66-1.25) mg/dL POC Glucose (mg/dL) (70-110) mg/dL Calcium (8.4-10.2) mg/dL Phosphorus (2.5-4.5) mg/dL Troponin I 0.072 H* (0.000-0.034) ng/mL Total Protein 5.9 L (6.3-8.2) g/dL
--- NOTE | 2023-09-01 15:05 | US ---
EXAMINATION TYPE: US kidneys/renal and bladder DATE OF EXAM: 09/01/2023 Exam done portable COMPARISON: NONE CLINICAL INDICATION: Male, 67 years old with history of MICHAEL oN CKD; EXAM MEASUREMENTS: Right Kidney: 11.6 x 5.1 x 5.6 cm Left Kidney: 12.3 x 4.9 x 5.2 cm Right Kidney: No hydronephrosis or masses seen Left Kidney: 2.7cm cyst superior pole, 2 stones superior pole both measuring 0.5cm Bladder: wnl Bilateral Jets seen: Yes No obstructive uropathy. Left renal calculi. No suspicious solid renal masses. IMPRESSION: 1. No evidence for obstructive uropathy. 2. Simple appearing left renal cyst. 3. Nonobstructing left renal calculi.
[2023-09-01] MEDS: FUROSEMIDE 20 MG TAB PO SCH (15:41)
[2023-09-01] MEDS: RIVAROXABAN 20 MG TAB PO SCH (17:04)
[2023-09-01] MEDS: PREGABALIN 75 MG CAP PO SCH (20:20)
[2023-09-01] MEDS: HYDROcodone/APAP 10-325MG 1 EACH TAB PO PRN (20:21)
[2023-09-01] MEDS: ATORVASTATIN 20 MG TAB PO SCH (20:21)
[2023-09-01] MEDS ORDERED: SPIRONOLACTONE 25 MG TAB PO SCH (21:00)
[2023-09-01] MEDS ORDERED: HEPARIN SODIUM,PORCINE 5,000 UNIT/ML 1 ML VIAL SQ SCH (21:00)
[2023-09-02 08:38] VITALS: RESP 16; TEMP 98
[2023-09-02] MEDS: POTASSIUM CHLORIDE ER 20 MEQ TAB.ER PO SCH (08:39)
[2023-09-02 10:21] LABS: African American GFR (CKD) 75 (>60 ml/min/1.73 sqM); Anion Gap 5 mmol/L; Blood Urea Nitrogen 22 mg/dL (9-20); Calcium 9.6 mg/dL (8.4-10.2); Carbon Dioxide 25 mmol/L (22-30); Chloride 110 mmol/L (98-107); Glucose 136 mg/dL (74-99); Non-African American GFR(CKD) 65 (>60 ml/min/1.73 sqM); Potassium 4.3 mmol/L (3.5-5.1); Sodium 140 mmol/L (137-145)
--- NOTE | 2023-09-02 11:35 | CA ---
Transthoracic Echo Report Name: Thony Jean Age: 67 Gender: M : 1955 Exam Date: 09/02/2023 08:03 Exam Location: [facility] Ht (in): 74 Wt (lb): 262 Ordering Physician: Sunita Naqvi MD Attending/Referring Phys: Electrical And Instrumentation Manager Leslie Lew RDCS Procedure CPT: Indications: elevated bnp Cardiac Hx: AVR Technical Quality: Fair Contrast 1: Definity Total Dose (mL): 2 Contrast 2: Total Dose (mL): MEASUREMENTS (Male / Female) Normal Values 2D ECHO LV Diastolic Diameter PLAX 5.9 cm 4.2 - 5.9 / 3.9 - 5.3 cm LV Systolic Diameter PLAX 3.8 cm IVS Diastolic Thickness 1.3 cm 0.6 - 1.0 / 0.6 - 0.9 cm LVPW Diastolic Thickness 1.3 cm 0.6 - 1.0 / 0.6 - 0.9 cm LV Relative Wall Thickness 0.4 RV Internal Dim ED PLAX 2.6 cm LVOT Diameter 2.3 cm LA Systolic Diameter LX 6.0 cm 3.0 - 4.0 / 2.7 - 3.8 cm LA Volume 173.9 cm??? 18 - 58 / 22 - 52 cm??? LA Volume Index 68.9 cm???/m??? 16 - 28 cm???/m??? M-MODE Aortic Root Diameter MM 3.8 cm LA Systolic Diameter MM 5.2 cm LA Ao Ratio MM 1.3 DOPPLER AV Peak Velocity 202.9 cm/s AV Peak Gradient 16.5 mmHg AV Mean Velocity 148.6 cm/s AV Mean Gradient 9.9 mmHg AV Velocity Time Integral 45.3 cm AI Peak Velocity 309.0 cm/s AI Peak Gradient 38.2 mmHg AI Pressure Half Time 789.8 ms LVOT Peak Velocity 107.2 cm/s LVOT Peak Gradient 4.6 mmHg LVOT Velocity Time Integral 24.9 cm LVOT Stroke Volume 103.7 cm??? LVOT Stroke Volume Index 42.6 ml/m??? LVOT Cardiac Index 3408.7 cm???/min???m??? AV Area Cont Eq vti 2.3 cm??? AV Area Cont Eq pk 2.2 cm??? TR Peak Velocity 233.0 cm/s TR Peak Gradient 21.7 mmHg Right Ventricular Systolic Press 40.7 mmHg FINDINGS Left Ventricle Left ventricular ejection fraction is estimated at 50-55%. No obvious regional wall motion abnormalities. Mildly increased septal wall thickness. Left ventricular cavity size normal. Mildly reduced global left ventricular systolic function. Right Ventricle Normal right ventricular size and function. Mild pulmonary hypertension. Right Atrium Severe right atrial dilatation. Catheter/pacemaker wire in the right atrial appendage. Left Atrium Severely increased left atrial diameter. Severely increased left atrial volume. Severely increased left atrial area. Mitral Valve Structurally normal mitral valve. [id number] mitral regurgitation. No mitral stenosis. Aortic Valve Normally functioning bioprosthetic aortic valve without stenosis with a peak velocity of 2 m/s, peak gradient 16 mmHg, mean gradient 9 mmHg .no paravalvular aortic regurgitation. Tricuspid Valve Structurally normal tricuspid valve. Mild tricuspid regurgitation. No tricuspid stenosis. Pulmonic Valve Structurally normal pulmonic valve. [id number] pulmonic regurgitation. Pericardium No pericardial or pleural effusion. Aorta Mildly dilated aortic annulus. CONCLUSIONS Left ventricular ejection fraction 50-55% Mildly increased left ventricular wall thickness Severe biatrial enlargement [id number] mitral regurgitation Normally functioning bioprosthetic aortic valve Mild tricuspid regurgitation Previewed by: Dr. Monty Parker DO (Electronically Signed) Final Date: 02 September 2023 11:34
[2023-09-02 11:59] VITALS: BP 116/75; PULSE 61
--- NOTE | 2023-09-02 12:26 | P.PN ---
Subjective Patient is seen in follow-up for acute kidney injury. Renal function improved. Hemodynamically stable. Denies chest pain or shortness of breath. Vital signs are stable. General: No acute distress. HEENT: Head exam is unremarkable. LUNGS: No audible rhonchi or wheezes. HEART: Rate and Rhythm are regular. ABDOMEN: Nontender. EXTREMITITES: No edema. Objective - Vital Signs Vital signs: Vital Signs Temp 98.0 F 09/02/23 08:37 Pulse 61 09/02/23 11:57 Resp 16 09/02/23 11:57 BP 116/75 09/02/23 11:57 Pulse Ox 96 09/02/23 11:57 FiO2 Intake & Output 09/01/23 09/02/23 09/02/23 18:59 06:59 18:59 Intake Total 476 825 118 Output Total 600 1175 Balance -124 -350 118 Weight 117.8 kg Intake: Intake, IV Titration 825 Amount Sodium Chloride 0.9% 1, 825 000 ml @ 75 mls/hr IV . [id number] [facility] Rx#:[id number] Oral 476 118 Output: Urine 600 1175 Other: # Voids 1 - Labs CBC & Chem 7: 09/01/23 06:10 09/02/23 09:26 Labs: Abnormal Lab Results - Last 24 Hours (Table) 09/02/23 Range/Units 09:26 Chloride 110 H (98-107) mmol/L BUN 22 H (9-20) mg/dL Glucose 136 H (74-99) mg/dL Assessment and Plan Plan: Assessment: 1. Acute kidney injury secondary to ATN secondary to hypotension. Creatinine 2.65 on admission and is 1.17 today. Creatinine 1.2 dated January 07, 2023. UA benign. No hydronephrosis noted on kidney ultrasound. 2. Hyperkalemia secondary to acute kidney injury and lisinopril and Aldactone. Improved with medical management. 3. Benign hypertension. Currently controlled. 4. History of aortic valve replacement. 5. Chronic diastolic CHF and mild to moderate mitral regurgitation. Plan: Hep-Lock IV fluids. Avoid nephrotoxins. Continue to monitor renal function and urine output. Follow-up outpatient 1 to 2 weeks postdischarge. Advised patient to monitor his weight closely at home and to notify physician if develops edema or gains more than 3 pounds in 1 week duration. He was advised to follow-up with his nuisance wildlife specialist outpatient within 1 week postdischarge.
--- NOTE | 2023-09-02 12:55 | P.CRDCN ---
History of Present Illness Consult date: 09/02/23 Reason for Consult (text): Elevated troponin History of present illness: This is a 67-year-old male patient of Dr. Goldstein with past medical history of aortic valve replacement, permanent pacemaker, atrial fibrillation, hypertension, hyperlipidemia. We have been asked to evaluate the patient for elevated troponins. Patient states that he is having shortness of breath sometimes has a little bit of chest pain with the shortness of breath. Patient initially presented to the hospital due to mental status changes. Blood pressure 116/75, heart rate 61, pulse ox 96% on room air. EKG: Atrial fibrillation, right bundle branch block Chest x-ray: No acute process Laboratory studies: WBC 7, hemoglobin 12.4, platelet count 166. Sodium 144, initial potassium 5.7-4.3, initial BUN 35 now 22, initial creatinine 2.65 and now 1.17. Troponins 0.156, 0.1077, 0.072. proBNP 5100. TSH 0.906. Home cardiac medications: Lasix 20 mg twice daily, potassium chloride 20 mill equivalents daily, simvastatin 40 mg at bedtime, lisinopril 5 mg daily, Toprol XL 50 mg daily, Xarelto 20 mg with supper, spironolactone 25 mg twice daily. Echocardiogram obtained 09/01/2023 reveals EF of 50 to 55%, severe biatrial enlargement, mildly increased left ventricular wall thickness. Mild to moderate MR. Normally functioning bioprosthetic aortic valve. Mild tricuspid regurgitation. Review Of Systems: At the time of my exam: CONSTITUTIONAL: Denies fever or chills. HEENT: Denies blurred vision, vision changes, or eye pain. Denies hemoptysis CARDIOVASCULAR: Denies chest pain. Denies orthopnea. Denies PND. Denies palpitations RESPIRATORY: Denies shortness of breath. GASTROINTESTINAL: Denies abdominal pain. Denies nausea or vomiting. HEMATOLOGIC: Denies bleeding disorders. GENITOURINARY: Denies any blood in urine. SKIN: Denies puritis. Denies rash. Physical examination: Gen: This is a 67-year-old male in no acute distress VS: reviewed HEENT: Head is atraumatic, normocephalic. Pupils equal, round. Sclerae is anicteric. NECK: Supple. No JVD. LUNGS: Clear to auscultation. No wheezes or rhonchi. No intercostal retractions. HEART: Irregular rate and rhythm. ABDOMEN: Soft No tenderness. EXTREMITIES: No pedal edema. No calf tenderness. NEUROLOGICAL: Patient is awake, alert and oriented x3. Assessment: Elevated troponins most likely secondary to acute kidney injury Hyperkalemia Acute kidney injury Hypertension Aortic valve replacement Permanent pacemaker Permanent atrial fibrillation Hypertension Hyperlipidemia Plan: Resume patient's home cardiac medications Increase a atorvastatin to 40 mg and continue at discharge Discontinue Lasix and potassium at discharge Patient to follow-up with Dr. Jensen this week Patient is cleared for discharge from cardiology. Thank you kindly for this consultation. Nurse practitioner note has been reviewed, I agree with documented findings and plan of care. Patient was seen and examined. Past Medical History Past Medical History: Atrial Fibrillation, Hyperlipidemia, Hypertension, Thyroid Disorder Additional Past Medical History / Comment(s): back pain, low T, afib, low heart rate History of Any Multi-Drug Resistant Organisms: None Reported Past Surgical History: Back Surgery, Cholecystectomy Additional Past Surgical History / Comment(s): aorta valve replacement, pacemaker Past Anesthesia/Blood Transfusion Reactions: No Reported Reaction Past Psychological History: Anxiety, Depression Smoking Status: Never smoker Past Alcohol Use History: None Reported Past Drug Use History: None Reported - Past Family History Mother Family Medical History: Hyperlipidemia Medications and Allergies Home Medications Medication Instructions Recorded Confirmed Type ALPRAZolam [Xanax] 1 mg PO DAILY PRN 09/01/23 09/01/23 History Baclofen 10 mg PO HS PRN 09/01/23 09/01/23 History FLUoxetine HCL [PROzac] 40 mg PO DAILY 09/01/23 09/01/23 History HYDROcodone/APAP 10-325MG [[place] 1 tab PO BID PRN 09/01/23 09/01/23 History 10-325] Levothyroxine Sodium [Synthroid] 50 mcg PO DAILY 09/01/23 09/01/23 History Metoprolol Succinate (ER) [Toprol 50 mg PO DAILY 09/01/23 09/01/23 History Xl] Pregabalin [Lyrica] 150 mg PO BID 09/01/23 09/01/23 History Rivaroxaban [Xarelto] 20 mg PO W/SUPPER 09/01/23 09/01/23 History Spironolactone [Aldactone] 25 mg PO BID 09/01/23 09/01/23 History fentaNYL 100MCG/HR PATCH 1 patch TRANSDERM Q72H 09/01/23 09/01/23 History [Duragesic 100MCG/HR] lisinopriL [Zestril] 5 mg PO DAILY 09/01/23 09/01/23 History Atorvastatin [Lipitor] 40 mg PO HS #90 tablet 09/02/23 Rx Allergies Allergy/AdvReac Type Severity Reaction Status Date / Time No Known Allergies Allergy Verified 09/01/23 10:28 Physical Exam Vitals: Vital Signs Temp Pulse Resp BP Pulse Ox 09/02/23 08:37 98.0 F 67 16 108/61 97 09/02/23 08:29 95 09/02/23 04:54 97.7 F 83 17 109/72 98 09/02/23 02:00 77 16 09/01/23 23:48 97.5 F L 77 16 108/61 95 09/01/23 20:22 68 18 09/01/23 20:08 97.9 F 68 16 102/60 95 09/01/23 16:00 98.0 F 77 18 97/60 96 09/01/23 14:00 77 18 09/01/23 12:00 77 18 107/68 98 Intake and Output 09/01/23 09/02/23 09/02/23 22:59 06:59 14:59 Intake Total 118 825 118 Output Total 1175 Balance 118 -350 118 Intake: Intake, IV Titration 825 Amount Sodium Chloride 0.9% 1, 825 000 ml @ 75 mls/hr IV . [id number] [facility] Rx#:[id number] Oral 118 118 Output: Urine 1175 Other: # Voids 1 Weight 117.8 kg Results 09/01/23 06:10 09/02/23 09:26 Comprehensive Metabolic Panel 09/02/23 Range/Units 09:26 Sodium 140 (137-145) mmol/L Potassium 4.3 (3.5-5.1) mmol/L Chloride 110 H (98-107) mmol/L Carbon Dioxide 25 (22-30) mmol/L BUN 22 H (9-20) mg/dL Creatinine 1.17 (0.66-1.25) mg/dL Glucose 136 H (74-99) mg/dL Calcium 9.6 (8.4-10.2) mg/dL Current Medications Generic Name Dose Route Start Last Admin Trade Name Freq PRN Reason Stop Dose Admin Hydrocodone Bitart/Acetaminophen 1 each 09/01/23 12:07 09/02/23 04:56 Hydrocodone/Apap 10-325mg 1 Each Tab PO 1 each BID PRN Administration Pain Alprazolam 1 mg 09/01/23 12:07 Alprazolam 1 Mg Tab PO DAILY PRN Anxiety Atorvastatin Calcium 20 mg 09/01/23 21:00 09/01/23 20:21 Atorvastatin 20 Mg Tab PO 20 mg HS TIM Administration Baclofen 10 mg 09/01/23 12:07 Baclofen 10 Mg Tab PO HS PRN Muscle Spasm Fentanyl 1 patch 09/02/23 09:00 09/02/23 09:27 Fentanyl 100mcg/Hr Patch TRANSDERM 1 patch Q72H TIM Administration Protocol Fluoxetine HCl 40 mg 09/01/23 12:15 09/02/23 08:38 Fluoxetine Hcl 20 Mg Cap PO 40 mg DAILY TIM Administration Furosemide 20 mg 09/01/23 16:00 09/02/23 08:38 Furosemide 20 Mg Tab PO 20 mg BID@0900,1600 TIM Administration Sodium Chloride 1,000 mls @ 75 mls/hr 08/31/23 21:30 09/02/23 05:50 Saline 0.9% IV 75 mls/hr .[id number] ITM Administration Levothyroxine Sodium 50 mcg 09/01/23 12:15 09/02/23 06:38 Levothyroxine 50 Mcg Tab PO 50 mcg DAILY@0630 TIM Administration Naloxone HCl 0.2 mg 08/31/23 21:25 Naloxone 0.4 Mg/Ml 1 Ml Vial IV Q2M PRN Opioid Reversal Ondansetron HCl 4 mg 08/31/23 21:25 Ondansetron 4 Mg/2 Ml Vial IVP Q8HR PRN Nausea And Vomiting Potassium Chloride 20 meq 09/02/23 09:00 09/02/23 08:39 Potassium Chloride Er 20 Meq Tab.Er PO 20 meq DAILY TIM Administration Pregabalin 150 mg 09/01/23 21:00 09/02/23 08:38 Pregabalin 75 Mg Cap PO 150 mg BID TIM Administration Rivaroxaban 20 mg 09/01/23 17:30 09/01/23 17:04 Rivaroxaban 20 Mg Tab PO 20 mg W/SUPPER TIM Administration Protocol Intake and Output 09/01/23 09/02/23 09/02/23 22:59 06:59 14:59 Intake Total 118 825 118 Output Total 1175 Balance 118 -350 118 Intake: Intake, IV Titration 825 Amount Sodium Chloride 0.9% 1, 825 000 ml @ 75 mls/hr IV . [id number] [facility] Rx#:[id number] Oral 118 118 Output: Urine 1175 Other: # Voids 1 Weight 117.8 kg 09/01/23 06:10 09/02/23 09:26
--- NOTE | 2023-09-02 13:02 | P.PN ---
Subjective Progress Note Date: 09/02/23 Subjective: Patient seen at bedside. No significant overnight events. Patient appears at normal baseline mentation. Pertinent positives and negatives discussed above, a complete review of systems was preformed and all the other sytems were negative. Vitals Signs Reveiwed. General: non toxic, no distress, appears at stated age, normal weight Derm: no unusual rashes/lesions, warm Head: atraumatic, normocephalic, symmetric Eyes: EOMI, no lid lag, anicteric sclera, pupils equal round reactive to light ENT: Nose and ears atraumatic Neck: No cervical lymphadenopathy, trachea midline, supple Mouth: no lip lesion, mucus membranes moist Cardiovascular: S1S2 reg, no murmur, positive dorsalis pedis pulse bilateral, no edema Lungs: Decreased air entry bilaterally, no rhonchi, no rales, no accessory mu scle use Abdominal: soft, nontender to palpation, no guarding Ext: muscle strength 5 out of 5 in all 4 extremities grossly, no gross muscle atrophy, no contractures, Neuro: CN II-XI grossly intact, no gross focal neuro deficits Psych: Alert, oriented, appropriate affect Data Reveiwed Today: Patient Labs: [] Imaging: [] Assesment:67-year-old male with a PMH of hypertension, hyperlipidemia, who presents to the emergency room brought in by family members for acting like himself. Patient is being admitted for further workup of altered mental status and MICHAEL. Plan: AMS secondary to urinary retention versus elevated BUN/creatinine ratio: Patient's mentation is at normal baseline now Pending BUN and creatinine from today Patient placed on baclofen for prevention of retention B12 531, folate 10.5, TSH 9.06, and ammonia less than 9. UA and UDS both negative. SIRS: No obvious infection Monitor for fevers Hypotension: Possibly related to dehydration Continue to hold lisinopril, metoprolol, and Aldactone. Continue NS at 75 cc/h. MICHAEL on CKD: Prerenal from hypotension and obstruction Continue IV hydration as above Renal and bladder ultrasound showed no evidence for obstructive uropathy, simple appearing left renal cyst, and nonobstructing left renal calculi. Bladder scan as needed and Reid if necessary. Nephro is following Troponin elevation: Flat. Likely secondary to CKD Echo scheduled for today (09/01), cardiology consulted. Macrocytic anemia: B12 531 and folate 10.5 History of atrial fibrillation: Xarelto 20 mg p.o. nightly. Hold metoprolol for now due to low blood pressure Chronic: prolonged cardiac arrest, CN 3 palsy and intentional tremor Results: Hyperkalemia and hypercalcemia. F NS at 75 cc/h E potassium chloride ER 20 mill equivalents p.o. daily N regular diet A normally ambulates without assistance at home DVT ppx: Xarelto 20 mg p.o. with dinner Code Status: Full code Anticipated discharge place: To home Anticipated discharge time: Likely today (09/01), pending clinical course Objective - Vital Signs Vital signs: Vital Signs Temp 97.7 F 09/02/23 04:54 Pulse 83 09/02/23 04:54 Resp 17 09/02/23 04:54 BP 109/72 09/02/23 04:54 Pulse Ox 98 09/02/23 04:54 FiO2 Intake & Output 09/01/23 09/02/23 09/02/23 18:59 06:59 18:59 Intake Total 476 825 Output Total 600 1175 Balance -124 -350 Weight 117.8 kg Intake: Intake, IV Titration 825 Amount Sodium Chloride 0.9% 1, 825 000 ml @ 75 mls/hr IV . [id number] [facility] Rx#:[id number] Oral 476 Output: Urine 600 1175 Other: # Voids 1 - Labs CBC & Chem 7: 09/01/23 06:10 09/01/23 06:10
--- NOTE | 2023-09-02 16:09 | P.DS ---
Providers Date of admission: 08/31/23 21:25 Discharge Diagnosis: Altered mental status SIRS Hypotension MICHAEL on CKD Troponin elevation Macrocytic anemia Atrial fibrillation Hyperkalemia Hypercalcemia Hospital Course: 87-year-old male with a past medical history of hypertension, hyperlipidemia who presents to the ED via family members for altered mental status. In the ED patient's vitals temperature 98.2, pulse 80, respiration 20, blood pressure 74/42, and O2 saturation 96.. Patient's labs in the ED were significant for sodium 143, potassium 5.7, chloride 110, BUN 35, creatinine 2.65, calcium 10.6, phosphorus 4.9, WBC 11, RBC 4.27, hemoglobin 13.9, and MCV 100.4. Imaging in the ED showed an EKG with atrial flutter/tachycardia with rapid RVR, intermediate axis, incomplete right bundle branch block, minimal ST depression.CXR in the ED showed no evidence for acute pulmonary disease. Patient was admitted for further workup of acute new onset altered mental status. Upon admission, patient had home BP medications held as his blood pressure was significantly low. Patient received fluids and there was an improvement in his BUN and creatinine while inpatient. Patient received an abdomen/bladder ultrasound which showed no signs of obstructive uropathy, but it did show simple appearing left renal cyst and nonobstructing left renal colliculi. Patient also received an echo which showed left ventricular ejection fraction of 50 to 55%, mildly increased left ventricular wall thickness, severe biatrial enlargement, mild to moderate mitral regurgitation, and mild tricuspid regurgitation. Patient was found to be retaining 600 cc of urine while inpatient and was straight cathed once. Patient's BUN since admission decreased from 35 to 22 and creatinine decreased from 2.65 to 1.17. Patient is medically cleared for discharge. It was decided that the patient's Lasix and potassium would be held at discharge. Patient is discharged to home. Patient should follow-up with PCP and swaging machine operator. Pt seen and examined at bedside: This morning patient was resting well and asking about when he could leave. Patient had no complaints. Vital signs reveiwed and stable: General: non toxic, no distress, appears at stated age Derm: warm, dry Head: atraumatic, normocephalic, symmetric Eyes: EOMI, no lid lag, anicteric sclera Mouth: no lip lesion, mucus membranes moist Cardiovascular: S1S2 reg, no murmur Lungs: CTA bilateral, no rhonchi, no rales , no accessory muscle use Abdominal: soft, nontender to palpation, no guarding, no appreciable organomegaly Ext: no gross muscle atrophy, no edema, no contractures Neuro: CN II-XI grossly intact bedside right CN 3 palsy, no focal neuro deficits, intentional tremor Psych: Alert, oriented, appropriate affect A total of [] minutes were spent preparing this complex discarge summary. Patient was discharged on []. Attending physician: Sunita Naqvi MD Consults: 08/31/23 21:25 Consult Physician Routine Consulting Provider: Rainer Mustafa Consult Reason/Comments: michael Do you want consulting provider notified?: Yes 09/01/23 08:57 Consult Physician Routine Consulting Provider: Colt Javier Consult Reason/Comments: Troponin elevation Do you want consulting provider notified?: Yes Primary care physician: [facility] Course: I have seen and evaluated the patient today. Discussed with the resident and agree with the residents subjective and objective as documented in the resident's note. The assessment and plan was discussed and outlined as below. Mentation back to normal. BP borderline low. Cardiology consulted for med management recommending discontinuing Lasix and to continue all other cardiac meds until follow up with his Professional Architect. Renal function back to baseline. Renal US negative for obstruction. Patient urinating freely. B12, Folate, TSH, Ammonia, UA, UDS negative. Echo EF 50-55%. Advised to follow up with PCP within 1-2 days, Cardiology and Nephrology within 1 week of discharge. Discharge Diagnosis: Altered mental status SIRS Hypotension MICHAEL on CKD Troponin elevation Macrocytic anemia History of Atrial fibrillation Chronic conditions include h/o prolonged cardiac arrest, CN 3 palsy and intentional tremor Resolved: Hyperkalemia, Hypercalcemia This complex discharge took 35 minutes to complete. Patient Condition at Discharge: Stable Plan - Discharge Summary Discharge Rx Participant: Yes New Discharge Prescriptions: New Atorvastatin [Lipitor] 40 mg PO HS #90 tablet Continue Pregabalin [Lyrica] 150 mg PO BID fentaNYL 100MCG/HR PATCH [Duragesic 100MCG/HR] 1 patch TRANSDERM Q72H Metoprolol Succinate (ER) [Toprol XL] 50 mg PO DAILY Baclofen 10 mg PO HS PRN PRN Reason: Muscle Spasm Levothyroxine Sodium [Synthroid] 50 mcg PO DAILY HYDROcodone/APAP 10-325MG [[place] 10-325] 1 tab PO BID PRN PRN Reason: Pain lisinopriL [Zestril] 5 mg PO DAILY Spironolactone [Aldactone] 25 mg PO BID Rivaroxaban [Xarelto] 20 mg PO W/SUPPER ALPRAZolam [Xanax] 1 mg PO DAILY PRN PRN Reason: Anxiety FLUoxetine HCL [PROzac] 40 mg PO DAILY Discontinued Potassium Chloride ER [K-Dur 20] 20 meq PO DAILY Simvastatin [Zocor] 40 mg PO HS Furosemide [Lasix] 20 mg PO BID Discharge Medication List ALPRAZolam [Xanax] 1 mg PO DAILY PRN 09/01/23 [History] Baclofen 10 mg PO HS PRN 09/01/23 [History] FLUoxetine HCL [PROzac] 40 mg PO DAILY 09/01/23 [History] HYDROcodone/APAP 10-325MG [[place] 10-325] 1 tab PO BID PRN 09/01/23 [History] Levothyroxine Sodium [Synthroid] 50 mcg PO DAILY 09/01/23 [History] Metoprolol Succinate (ER) [Toprol XL] 50 mg PO DAILY 09/01/23 [History] Pregabalin [Lyrica] 150 mg PO BID 09/01/23 [History] Rivaroxaban [Xarelto] 20 mg PO W/SUPPER 09/01/23 [History] Spironolactone [Aldactone] 25 mg PO BID 09/01/23 [History] fentaNYL 100MCG/HR PATCH [Duragesic 100MCG/HR] 1 patch TRANSDERM Q72H 09/01/23 [History] lisinopriL [Zestril] 5 mg PO DAILY 09/01/23 [History] Atorvastatin [Lipitor] 40 mg PO HS #90 tablet 09/02/23 [Rx] Follow up Appointment(s)/Referral(s): Katie Álvarez MD [Primary Care Provider] - 1-2 days (please call to schedule appointment) Francie Hilario MD [REFERRING] - 1 Week (please make appointment for this week) Rainer Mustafa DO [STAFF PHYSICIAN] - 1 Week (please call to schedule appointment) Discharge Disposition: HOME SELF-CARE
[2023-09-02] MEDS ORDERED: ATORVASTATIN 40 MG TAB PO SCH (21:00)
--- NOTE | 2023-09-04 13:24 | CDI ---
Documentation Clarification Form Date: 09/04/23 From: Magdalena Kebede Admit Date: 08/31/2023 09:25:00 PM Patient Name: Thony Jean Visit Number: [id number] Discharge Date: 09/02/2023 02:58:00 PM ATTENTION: The Clinical Documentation Specialists (CDI) and [facility] Coding Staff appreciate your assistance in clarifying documentation. Please respond to the clarification below the line at the bottom and electronically sign. The CDI & [facility] Coding staff will review the response and follow-up if needed. Please note: Queries are made part of the Legal Health Record. If you have any questions, please contact the author of this message via ITS. Doctor Erika Gonzalez, Your patient has the documented symptom of Altered Mental Status in the ED Note, H&P and DS. Additional clarification regarding the etiology/cause of this symptom is requested. 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 Labs: K 5.7, Chloride 110, BYN 35, Cr 2.65, Calcium 10.6, Phosphorus 4.9 Kidney X Ray: No obstructive uropathy. Treatment: IV normal saline 75 cc/hr, nephrology consult, monitor BMP, echo, cardiac monitoring Please clarify the etiology of the symptom of Altered Mental Status: [ ] [Insert type of encephalopathy] Encephalopathy due to [insert cause of encephalopathy] [x ] Acute kidney injury secondary to ATN and hypotension [ ] Dehydration [ ] Other condition (please specify) [ ] Unable to determine MTDD
== END 2023-09-02 14:58 | disposition home or self-care (01) | DRG 683 ==
LOC: EC 18:30 → 3SCARD 21:25
PROVIDERS: ADMIT Internal Medicine; ATTEND Internal Medicine
DX: N17.0 Acute kidney failure with tubular necrosis (principal); I13.0 Hypertensive heart and chronic kidney disease with heart failure and stage 1 through stage 4 chronic kidney disease, or unspecified chronic kidney disease; R65.10 Systemic inflammatory response syndrome (SIRS) of non-infectious origin without acute organ dysfunction; I48.21 Permanent atrial fibrillation; I50.32 Chronic diastolic (congestive) heart failure; I48.92 Unspecified atrial flutter; R79.89 Other specified abnormal findings of blood chemistry; E86.0 Dehydration; H49.01 Third [oculomotor] nerve palsy, right eye; Z86.74 Personal history of sudden cardiac arrest; N18.9 Chronic kidney disease, unspecified; F32.A Depression, unspecified; I34.0 Nonrheumatic mitral (valve) insufficiency; Z95.3 Presence of xenogenic heart valve; E87.5 Hyperkalemia; E83.52 Hypercalcemia; I95.1 Orthostatic hypotension; D53.9 Nutritional anemia, unspecified; E78.5 Hyperlipidemia, unspecified; F41.9 Anxiety disorder, unspecified; I95.9 Hypotension, unspecified; I45.10 Unspecified right bundle-branch block; E07.9 Disorder of thyroid, unspecified; G25.2 Other specified forms of tremor; M54.9 Dorsalgia, unspecified; Z79.01 Long term (current) use of anticoagulants; R33.9 Retention of urine, unspecified; Z79.891 Long term (current) use of opiate analgesic; Z79.890 Hormone replacement therapy; Z79.899 Other long term (current) drug therapy
CPT/HCPCS: 36415; 71045; 76770; 80048; 80053; 80306; 81003; 82140; 82607; 82746; 83605; 83735; 83880; 84100; 84443; 84484; 85025; 85610; 85730; 93005; 93306; 94760; 96361; 96374; 96375; 99285

== ENCOUNTER 2024-01-16 00:31 | Observation (INO) | payer MEDICARE ==
[2024-01-16] MEDS: ASPIRIN 81 MG PO STA (01:09)
[2024-01-16 01:13] LABS: Basophils # (A) 0.1 k/uL (0-0.2); Basophils % (A) 1 %; Eosinophils # (A) 0.3 k/uL (0-0.7); Eosinophils % (A) 3 %; HCT 39.6 % (39.0-53.0); HGB 13.1 gm/dL (13.0-17.5); Lymphocytes # (A) 2.3 k/uL (1.0-4.8); Lymphocytes % (A) 30 %; MCHC 33.2 g/dL (31.0-37.0); MCV 96.3 fL (80.0-100.0); Mean Platelet Volume 7.4; Monocytes # (A) 0.6 k/uL (0-1.0); Monocytes % (A) 8 %; Neutrophils # (A) 4.2 k/uL (1.3-7.7); Neutrophils % (A) 55 %; Platelet Count 132 k/uL (150-450); RBC 4.11 m/uL (4.30-5.90); RDW 13.4 % (11.5-15.5); WBC 7.6 k/uL (3.8-10.6)
[2024-01-16 01:18] LABS: ALT 65 U/L (4-49); AST 69 U/L (17-59); African American GFR (CKD) 64 (>60 ml/min/1.73 sqM); Albumin 4.2 g/dL (3.5-5.0); Alkaline Phosphatase 49 U/L (38-126); Anion Gap 5 mmol/L; Blood Urea Nitrogen 34 mg/dL (9-20); Carbon Dioxide 26 mmol/L (22-30); Chloride 108 mmol/L (98-107); Glucose 102 mg/dL (74-99); Magnesium 2.1 mg/dL (1.6-2.3); Non-African American GFR(CKD) 55 (>60 ml/min/1.73 sqM); Potassium 4.6 mmol/L (3.5-5.1); Sodium 139 mmol/L (137-145); Total Bilirubin 0.8 mg/dL (0.2-1.3); Total Protein 6.7 g/dL (6.3-8.2)
[2024-01-16 01:20] LABS: INR 1.1 (<1.2); Partial Thromboplastin Time 25.1 sec (22.0-30.0); Prothrombin Time 11.8 sec (10.0-12.5)
[2024-01-16 01:24] LABS: NT-Pro-B-Type Natriuretic Pept 5300 pg/mL
--- NOTE | 2024-01-16 01:29 | XR ---
EXAM: XR Chest, 2 Views CLINICAL HISTORY: ITS.REASON XR Reason: Chest Pain TECHNIQUE: Frontal and lateral views of the chest. COMPARISON: No relevant prior studies available. FINDINGS: Lungs: Unremarkable. No consolidation. Pleural space: Unremarkable. No pneumothorax. Heart: Cardiomegaly. Mediastinum: Unremarkable. Normal mediastinal contour. Bones/joints: Sternotomy wires. No acute fracture. Tubes, lines and devices: Pacemaker leads. IMPRESSION: No acute findings in the chest.
[2024-01-16] MEDS ORDERED: NALOXONE 0.4 MG/ML 1 ML VIAL IV PRN (02:30)
--- NOTE | 2024-01-16 02:32 | ED ---
Chest Pain [facility] - General Chief Complaint: Chest Pain Stated Complaint: Chest Pain Time Seen by Provider: 01/16/24 00:46 Source: patient Mode of arrival: ambulatory Limitations: no limitations - History of Present Illness Initial Comments: 68-year-old male with history of hypertension, hyperlipidemia, aortic valve replacement presenting with chief complaint of chest pain and shortness of breath. Patient has had worsening shortness of breath since August but is much worse over the past month. He has chest pain which is a pressure like pain over the left side of his chest. Pain and shortness of breath is worse on exertion. Patient follows with payable representative Dr. Sulaiman Otto'kvng, he is unable to get in for an appointment he states. This evening he was unable to lie down due to increased shortness of breath and chest pain which brought him into the ER. He admits to lower extremity swelling. No cough congestion or sore throat. No fevers or chills. No nausea vomiting or abdominal pain. - Related Data Home Medications Medication Instructions Recorded Confirmed ALPRAZolam [Xanax] 1 mg PO DAILY PRN 09/01/23 01/16/24 Baclofen 10 mg PO HS PRN 09/01/23 01/16/24 FLUoxetine HCL [PROzac] 40 mg PO DAILY 09/01/23 01/16/24 HYDROcodone/APAP 10-325MG [[place] 1 tab PO BID PRN 09/01/23 01/16/24 10-325] Levothyroxine Sodium [Synthroid] 50 mcg PO DAILY 09/01/23 01/16/24 Metoprolol Succinate (ER) [Toprol 50 mg PO DAILY 09/01/23 01/16/24 XL] Pregabalin [Lyrica] 150 mg PO BID 09/01/23 01/16/24 Rivaroxaban [Xarelto] 20 mg PO W/SUPPER 09/01/23 01/16/24 Spironolactone [Aldactone] 25 mg PO BID 09/01/23 01/16/24 fentaNYL 100MCG/HR PATCH 1 patch TRANSDERM Q72H 09/01/23 01/16/24 [Duragesic 100MCG/HR] lisinopriL [Zestril] 5 mg PO DAILY 09/01/23 01/16/24 Methylphenidate HCl 30 mg PO DAILY 01/16/24 01/16/24 Previous Rx's Medication Instructions Recorded Atorvastatin [Lipitor] 40 mg PO HS #90 tablet 09/02/23 Allergies Allergy/AdvReac Type Severity Reaction Status Date / Time No Known Allergies Allergy Verified 01/16/24 09:34 Review of Systems ROS Statement: Those systems with pertinent positive or pertinent negative responses have been documented in the HPI. ROS Other: All systems not noted in ROS Statement are negative. EKG Findings - EKG Comments: EKG Findings:: Electronic ventricular pacemaker. Ventricular rate 86. QRS 151. QT 386. QTc 429. Past Medical History Past Medical History: Hyperlipidemia, Hypertension, Thyroid Disorder Additional Past Medical History / Comment(s): back pain, low T History of Any Multi-Drug Resistant Organisms: None Reported Past Surgical History: Back Surgery, Cholecystectomy Additional Past Surgical History / Comment(s): aorta valve replacement Past Anesthesia/Blood Transfusion Reactions: No Reported Reaction Past Psychological History: Depression Smoking Status: Never smoker Past Alcohol Use History: None Reported Past Drug Use History: None Reported - Past Family History Mother Family Medical History: Hyperlipidemia General Exam Limitations: no limitations General appearance: alert, in no apparent distress Head exam: Present: atraumatic, normocephalic, normal inspection Eye exam: Present: normal appearance, EOMI Neck exam: Present: normal inspection. Absent: meningismus Respiratory exam: Present: normal lung sounds bilaterally. Absent: respiratory distress, wheezes, rales, rhonchi, stridor Cardiovascular Exam: Present: regular rate, normal rhythm, diastolic murmur, rubs, gallop, S3, S4. Absent: systolic murmur Extremities exam: Present: pedal edema Neurological exam: Present: alert, oriented X3 Psychiatric exam: Present: normal affect, normal mood Skin exam: Present: warm, dry, normal color Course Vital Signs 01/16/24 01/16/24 01/16/24 00:33 01:00 02:41 Temperature 98.1 F Pulse Rate 81 60 77 Respiratory 18 18 18 Rate Blood Pressure 114/59 96/67 113/67 O2 Sat by Pulse 97 93 L 97 Oximetry Chest Pain MDM - MDM Was pt. sent in by a medical professional or institution (, PA, SALES ENGINEERING MANAGER, urgent care, hospital, or prison...) When possible be specific @ -No Did you speak to anyone other than the patient for history (EMS, parent, family, police, friend...)? What history was obtained from this source @ -No Did you review nursing and triage notes (agree or disagree)? Why? @ -I reviewed and agree with nursing and triage notes Were old charts reviewed (outside hosp., previous admission, EMS record, old EKG, old radiological studies, urgent care reports/EKG's, prison records)? Report findings @ -No old charts were reviewed Differential Diagnosis (chest pain, altered mental status, abdominal pain women, abdominal pain men, vaginal bleeding, weakness, fever, dyspnea, syncope, headache, dizziness, GI bleed, back pain, seizure, CVA, palpatations, mental health, musculoskeletal)? @ -MDM Differential Chest Pain: Stable Angina, Unstable Angina, STEMI, NSTEMI Aortic Dissection, Pneumothorax, Musculoskeletal, Esophageal Spasm GERD, Cholecystitis, Pancreatitis, Zoster This is not meant to be an all-inclusive list. EKG interpreted by me (3pts min.). @ -As above X-rays interpreted by me (1pt min.). @ -Chest x-ray shows no acute findings in the chest CT interpreted by me (1pt min.). @ -None done U/S interpreted by me (1pt. min.). @ -None done What testing was considered but not performed or refused? (CT, X-rays, U/S, labs)? Why? @ -None What meds were considered but not given or refused? Why? @ -None Did you discuss the management of the patient with other professionals (professionals i.e. , PA, SALES ENGINEERING MANAGER, lab, RT, psych nurse, licensed clinical social worker, paving stone installer, teacher, motor equipment commanding officer, manager of case management)? Give summary @ -Spoke with Dr. Clay who accepts admission Was smoking cessation discussed for >3mins.? @ -No Was critical care preformed (if so, how long)? @ -No Were there social determinants of health that impacted care today? How? (Homelessness, low income, unemployed, alcoholism, drug addiction, transportation, low edu. Level, literacy, decrease access to med. care, detention, rehab)? @ -No Was there de-escalation of care discussed even if they declined (Discuss DNR or withdrawal of care, Hospice)? DNR status @ -No What co-morbidities impacted this encounter? (DM, HTN, Smoking, COPD, CAD, Cancer, CVA, ARF, Chemo, Hep., AIDS, mental health diagnosis, sleep apnea, morbid obesity)? @ -Hypertension, hyperlipidemia, aortic valve replacement, electronic ventricular pacemaker Was patient admitted / discharged? Hospital course, mention meds given and route, prescriptions, significant lab abnormalities, going to OR and other pertinent info. @ -68-year-old male presenting with chief complaint of chest pain and difficulty breathing. Symptoms are worse upon exertion and with lying down. History and physical examination are conducted. Patient does have some pitting edema of the lower extremities. Negative troponin. BNP 5300. Patient has a previous value of 5100 back in August. His chest x-ray shows no acute findings, does not appear consistent with an acute CHF exacerbation. On reassessment patient is resting in the bed showing no acute signs of distress. Patient will be admitted for chest pain. He is agreeable with this plan. I discussed this case with my attending Dr. Francis Undiagnosed new problem with uncertain prognosis? @ -No Drug Therapy requiring intensive monitoring for toxicity (Heparin, Nitro, Insulin, Cardizem)? @ -No Were any procedures done? @ -No Diagnosis/symptom? @ -Chest pain Acute, or Chronic, or Acute on Chronic? @ -Acute Uncomplicated (without systemic symptoms) or Complicated (systemic symptoms)? @ -Complicated Side effects of treatment? @ -No Exacerbation, Progression, or Severe Exacerbation? @ -No Poses a threat to life or bodily function? How? (Chest pain, [place], [place], pneumonia, PE, COPD, DKA, ARF, appy, cholecystitis, CVA, Diverticulitis, Homicidal, Suicidal, threat to staff... and all critical care pts) @ -Yes Disposition Clinical Impression: Chest pain Disposition: ADMITTED IP TO THIS HOSP Condition: Fair Time of Disposition: 02:32
[2024-01-16] MEDS: SODIUM CHLORIDE 0.9% 1,000 ML IV SCH (03:54)
--- NOTE | 2024-01-16 06:32 | P.HPIM ---
History of Present Illness H&P Date: 01/16/24 Chief Complaint: Chest pain History of present illness; 68-year-old male with PMH of hypertension, hyperlipidemia, aortic valve replacement presents with complaints of chest pain and shortness of breath. Reports worsening shortness of breath since August, but states this has been much worse over the past month. Describes the chest pain as squeezing sensation over the left chest without radiation, at its worst it is a 10 out of 10, but currently 0 out of 10. Also notes some numbness in the left arm, but no pain. Reports yesterday it happened at rest which is unusual for him as this chest pain normally only happens on exertion. Notes his shortness of breath is worse on exertion, and that this evening he was unable to lay down due to increased shortness of breath and chest pain which caused him to come to the ER admits to lower extremity swelling. Reports he follows with Dr. Hilario, his cook enchilada, from [facility] but has been unable to get an appointment. Denies fever, chills, headache, cough, congestion, sore throat, nausea, vomiting, abdominal pain. At time of interview, patient is denying any current chest pain or shortness of breath. Imaging: -ER EKG: Electronic ventricular pacemaker. Ventricular rate 86. QRS 151. QT 386. QTc 429. -ER CXR: No acute findings in the chest. REVIEW OF SYSTEMS: As stated above in HPI. The rest of the 14-point review of systems is negative. PHYSICAL EXAMINATION: GENERAL: The patient is alert and oriented x3, not in any acute distress. Well developed, well nourished. HEENT: Pupils are round and equally reacting to light. EOMI. No scleral icterus. No conjunctival pallor. Normocephalic, atraumatic. CARDIOVASCULAR: S1 and S2 present. No murmurs, rubs, or gallops. PULMONARY: Chest is clear to auscultation b/l, no wheezing or crackles. ABDOMEN: Soft, nontender, nondistended, normoactive bowel sounds. No palpable organomegaly. MUSCULOSKELETAL: No joint swelling or deformity. EXTREMITIES: No cyanosis, clubbing, trace pedal edema. NEUROLOGICAL: Gross neurological examination did not reveal any focal deficits. SKIN: No rashes. Assessment and Plan 68-year-old male with PMH of hypertension, hyperlipidemia, aortic valve replacement presents with complaints of chest pain and shortness of breath. Rule out ACS versus less likely CHF exacerbation. #Atypical chest pain/rule out ACS: #History of diastolic CHF, euvolemic -Troponin less than 0.012-->less than 0.012, BNP 5300 -Cardiology consulted -Echo ordered, previous from 09/10 showed EF 50 to 55% -Continue cardiac monitoring -O2 as needed -Patient currently euvolemic with the exception of trace pedal edema, unlikely CHF exacerbation and will not fluid restrict at this time aspirin 81 mg po daily atorvastatin 40 mg po daily #slighlty elevated creatinine -Potentially caused by decreased perfusion secondary to hypotension -creatinine 1.33, close to patient's baseline creatinine of 1.17-1.3 -Continue NS 75 cc/h -Continue to monitor daily CMP monitor urine output #Transaminitis: -AST 69 and ALT 65, likely reactive -Continue to monitor daily CMP monitor closely , if continues to trend up , hold statin , and check liver US #Thrombocytopenia: -Platelet count 132, 166 during his stay on 08/2023 -Continue to monitor daily CBC no reported bleeding Chronic Conditions: #Hypertension: -Continue home medication once reconciled #Hyperlipidemia: -Continue home medication once reconciled #Hypothyroidism: -Continue home medications once reconciled #. P. afib on xarelto and metoprolol F: NS 75 cc/h E: None N: Heart healthy diet DVT ppx: continue xarelto for afib GI ppx: Protonix 40 mg p.o. daily CODE STATUS: Full code Dispo: Pending conical course Sen Matta MD PGY-1 FM Dictation was produced using [employer] dictation software. please excuse any grammatical, word or spelling errors. I have seen and evaluated the patient today. I Discussed the case with the resident and agree with the resident's findings I edited the assessment and plan as necessary as documented in the resident's note. Past Medical History Past Medical History: Hyperlipidemia, Hypertension, Thyroid Disorder Additional Past Medical History / Comment(s): back pain, low T History of Any Multi-Drug Resistant Organisms: None Reported Past Surgical History: Back Surgery, Cholecystectomy Additional Past Surgical History / Comment(s): aorta valve replacement Past Anesthesia/Blood Transfusion Reactions: No Reported Reaction Past Psychological History: Depression Smoking Status: Never smoker Past Alcohol Use History: None Reported Past Drug Use History: None Reported - Past Family History Mother Family Medical History: Hyperlipidemia Medications and Allergies Home Medications Medication Instructions Recorded Confirmed Type ALPRAZolam [Xanax] 1 mg PO DAILY PRN 09/01/23 09/01/23 History Baclofen 10 mg PO HS PRN 09/01/23 09/01/23 History FLUoxetine HCL [PROzac] 40 mg PO DAILY 09/01/23 09/01/23 History HYDROcodone/APAP 10-325MG [[place] 1 tab PO BID PRN 09/01/23 09/01/23 History 10-325] Levothyroxine Sodium [Synthroid] 50 mcg PO DAILY 09/01/23 09/01/23 History Metoprolol Succinate (ER) [Toprol 50 mg PO DAILY 09/01/23 09/01/23 History XL] Pregabalin [Lyrica] 150 mg PO BID 09/01/23 09/01/23 History Rivaroxaban [Xarelto] 20 mg PO W/SUPPER 09/01/23 09/01/23 History Spironolactone [Aldactone] 25 mg PO BID 09/01/23 09/01/23 History fentaNYL 100MCG/HR PATCH 1 patch TRANSDERM Q72H 09/01/23 09/01/23 History [Duragesic 100MCG/HR] lisinopriL [Zestril] 5 mg PO DAILY 09/01/23 09/01/23 History Atorvastatin [Lipitor] 40 mg PO HS #90 tablet 09/02/23 Rx Allergies Allergy/AdvReac Type Severity Reaction Status Date / Time No Known Allergies Allergy Verified 09/01/23 10:28 Physical Exam Vitals: Vital Signs Temp Pulse Resp BP Pulse Ox 01/16/24 02:41 77 18 113/67 97 01/16/24 01:00 60 18 96/67 93 L 01/16/24 00:33 98.1 F 81 18 114/59 97 Intake and Output 01/15/24 01/15/24 01/16/24 14:59 22:59 06:59 Other: Weight 116.12 kg Results CBC & Chem 7: 01/16/24 00:45 01/16/24 00:45 Labs: Abnormal Lab Results - Last 24 Hours (Table) 11/28/24 11/28/24 Range/Units 00:45 00:45 RBC 4.11 L (4.30-5.90) m/uL Plt Count 132 L (150-450) k/uL Chloride 108 H (98-107) mmol/L BUN 34 H (9-20) mg/dL Creatinine 1.33 H (0.66-1.25) mg/dL Glucose 102 H (74-99) mg/dL AST 69 H (17-59) U/L ALT 65 H (4-49) U/L
[2024-01-16] MEDS: LEVOTHYROXINE 50 MCG TAB PO SCH (07:01)
[2024-01-16] MEDS: PANTOPRAZOLE 40 MG TABLET PO SCH (07:01)
[2024-01-16] MEDS: PREGABALIN 75 MG CAP PO SCH (10:42)
[2024-01-16] MEDS: METOPROLOL SUCCINATE (ER) 50 MG TAB.ER.24H PO SCH (10:42)
[2024-01-16] MEDS: FUROSEMIDE 10 MG/ML 4 ML VIAL IV STA (11:44)
--- NOTE | 2024-01-16 13:19 | P.CRDCN ---
History of Present Illness Consult date: 01/16/24 Requesting physician: Santos Hernandez Reason for Consult (text): chest pain Chief complaint: shortness of breath History of present illness: This is a pleasant 68-year-old male patient of Dr. Sutton with past medical history of CAD with prior stenting most recent 5 years ago, aortic valve repla cement 17 years ago, pacemaker implantation about 2 years ago, hypertension, hyperlipidemia, and chronic persistent atrial fibrillation. Presented with complaints of shortness of breath progressively worsening over the last 2 weeks. He typically walks about a mile a day without issues but 2 weeks ago began noticing shortness of breath. The last 2 days he has been having orthopnea and shortness of breath when talking. He denies any complaints of chest discomfort. Diagnostics -EKG: Atrial fibrillation with ventricular paced rhythm -Chest x-ray: No acute findings in the chest -Laboratory studies: NT proBNP 5300, troponin negative x 3 -Home cardiac medications: Aldactone 25 mg p.o. twice daily, Xarelto 20 mg p.o. daily, atorvastatin 40 mg p.o. nightly, metoprolol succinate 50 mg daily, li sinopril 5 mg daily. -Prior stress test: Unknown -Echocardiogram: August 2023 showed normal LV systolic function with normal functioning bioprosthetic aortic valve with no perivalvular leak, mild to mod erate MR -Cardiac catheterization: Unknown Review Of Systems: At the time of my exam: CONSTITUTIONAL: Denies fever or chills. HEENT: Denies blurred vision, vision changes. CARDIOVASCULAR: Denies chest pain. Denies orthopnea. Denies PND. Denies palpitations, dizziness, or syncope. RESPIRATORY: Denies shortness of breath, wheezing, or cough. Denies hemoptysis. GASTROINTESTINAL: Denies abdominal pain. Denies nausea or vomiting. Denies bleeding. HEMATOLOGIC: Denies bleeding disorders. GENITOURINARY: Denies hematuria. SKIN: Denies puritis. Denies rash. PHYSICAL EXAMINATION: This is a 68-year-old male in no apparent distress at the time of my examination. VITAL SIGNS: Reviewed. HEENT: Head is atraumatic, normocephalic. Pupils are equal, round. Sclerae anicteric. Conjunctivae are clear. Mucous membranes of the mouth are moist. Neck is supple. There is no elevated jugular venous pressure. No carotid bruit is heard. CHEST EXAMINATION: Clear to auscultation bilaterally. No wheezes rales or rhonchi. Respirations even and nonlabored. HEART EXAMINATION: Heart regular rate and rhythm, positive S1 and S2. No S3. No S4. Systolic ejection murmur with a diastolic murmur in the aortic area ABDOMEN: Soft, nontender. Bowel sounds are heard. No organomegaly noted. EXTREMITIES: 2+ peripheral pulses with evidence of minimal pedal edema and no calf tenderness noted. NEUROLOGIC EXAMINATION: Patient is awake, alert and oriented x3. Assessment: 1. Acute on chronic HF with preserved ejection fraction 2. CAD with prior stenting 3. Status post aortic valve replacement 17 years ago, rule out aortic regurgitation. His last echocardiogram did not show significant aortic regurgitation 4. Persistent atrial fibrillation 5. Status post permanent pacemaker Plan: From cardiology's perspective we will start the patient on IV Lasix for at least 24 hours. We will add Farxiga. Repeat renal function electrolytes in the morning. We will obtain a 2D echo with Doppler study. Further recommendations to follow. Thank you kindly for this consultation. Nurse practitioner note has been reviewed, I agree with documented findings and plan of care. Patient was seen and examined. Past Medical History Past Medical History: Hyperlipidemia, Hypertension, Thyroid Disorder Additional Past Medical History / Comment(s): back pain, low T History of Any Multi-Drug Resistant Organisms: None Reported Past Surgical History: Back Surgery, Cholecystectomy Additional Past Surgical History / Comment(s): aorta valve replacement Past Anesthesia/Blood Transfusion Reactions: No Reported Reaction Past Psychological History: Depression Smoking Status: Never smoker Past Alcohol Use History: None Reported Past Drug Use History: None Reported - Past Family History Mother Family Medical History: Hyperlipidemia Medications and Allergies Home Medications Medication Instructions Recorded Confirmed Type ALPRAZolam [Xanax] 1 mg PO DAILY PRN 09/01/23 01/16/24 History Baclofen 10 mg PO HS PRN 09/01/23 01/16/24 History FLUoxetine HCL [PROzac] 40 mg PO DAILY 09/01/23 01/16/24 History HYDROcodone/APAP 10-325MG [[place] 1 tab PO BID PRN 09/01/23 01/16/24 History 10-325] Levothyroxine Sodium [Synthroid] 50 mcg PO DAILY 09/01/23 01/16/24 History Metoprolol Succinate (ER) [Toprol 50 mg PO DAILY 09/01/23 01/16/24 History XL] Pregabalin [Lyrica] 150 mg PO BID 09/01/23 01/16/24 History Rivaroxaban [Xarelto] 20 mg PO W/SUPPER 09/01/23 01/16/24 History Spironolactone [Aldactone] 25 mg PO BID 09/01/23 01/16/24 History fentaNYL 100MCG/HR PATCH 1 patch TRANSDERM Q72H 09/01/23 01/16/24 History [Duragesic 100MCG/HR] lisinopriL [Zestril] 5 mg PO DAILY 09/01/23 01/16/24 History Atorvastatin [Lipitor] 40 mg PO HS #90 tablet 09/02/23 01/16/24 Rx Methylphenidate HCl 30 mg PO DAILY 01/16/24 01/16/24 History Allergies Allergy/AdvReac Type Severity Reaction Status Date / Time No Known Allergies Allergy Verified 01/16/24 09:34 Physical Exam Vitals: Vital Signs Temp Pulse Pulse Resp BP BP BP 01/16/24 10:15 75 103/75 01/16/24 08:28 60 96/60 01/16/24 06:43 97.9 F 58 L 18 94/61 01/16/24 03:34 97.4 F L 61 18 104/66 01/16/24 02:41 77 18 113/67 01/16/24 01:00 60 18 96/67 01/16/24 00:33 98.1 F 81 18 114/59 Pulse Ox 01/16/24 10:15 98 01/16/24 08:28 01/16/24 06:43 98 01/16/24 03:34 99 01/16/24 02:41 97 01/16/24 01:00 93 L 01/16/24 00:33 97 Intake and Output 01/15/24 01/16/24 01/16/24 22:59 06:59 14:59 Other: # Bowel Movements 0 Weight 116.12 kg Results 01/16/24 00:45 01/16/24 00:45 Cardiac Enzymes 01/16/24 01/16/24 01/16/24 Range/Units 00:45 00:45 03:55 AST 69 H (17-59) U/L Troponin I <0.012 <0.012 (0.000-0.034) ng/mL 01/16/24 Range/Units 07:17 AST (17-59) U/L Troponin I <0.012 (0.000-0.034) ng/mL Coagulation 01/16/24 Range/Units 00:45 PT 11.8 (10.0-12.5) sec APTT 25.1 (22.0-30.0) sec CBC 01/16/24 Range/Units 00:45 WBC 7.6 (3.8-10.6) k/uL RBC 4.11 L (4.30-5.90) m/uL Hgb 13.1 (13.0-17.5) gm/dL Hct 39.6 (39.0-53.0) % Plt Count 132 L (150-450) k/uL Comprehensive Metabolic Panel 01/16/24 Range/Units 00:45 Sodium 139 (137-145) mmol/L Potassium 4.6 (3.5-5.1) mmol/L Chloride 108 H (98-107) mmol/L Carbon Dioxide 26 (22-30) mmol/L BUN 34 H (9-20) mg/dL Creatinine 1.33 H (0.66-1.25) mg/dL Glucose 102 H (74-99) mg/dL Calcium 10.0 (8.4-10.2) mg/dL AST 69 H (17-59) U/L ALT 65 H (4-49) U/L Alkaline Phosphatase 49 (38-126) U/L Total Protein 6.7 (6.3-8.2) g/dL Albumin 4.2 (3.5-5.0) g/dL Current Medications Generic Name Dose Route Start Last Admin Trade Name Freq PRN Reason Stop Dose Admin Atorvastatin Calcium 40 mg 01/16/24 21:00 Atorvastatin 40 Mg Tab PO HS TIM Dapagliflozin 10 mg 01/16/24 13:00 Dapagliflozin Propanediol 10 Mg Tablet PO DAILY TIM Fluoxetine HCl 40 mg 01/17/24 09:00 Fluoxetine Hcl 20 Mg Cap PO DAILY TIM Furosemide 40 mg 01/16/24 21:00 Furosemide 10 Mg/Ml 4 Ml Vial IV Q12HR TIM Sodium Chloride 1,000 mls @ 75 mls/hr 01/16/24 02:45 01/16/24 03:54 Saline 0.9% IV 75 mls/hr .[id number] TIM Administration Levothyroxine Sodium 50 mcg 01/16/24 07:00 01/16/24 07:01 Levothyroxine 50 Mcg Tab PO 50 mcg 0630 TIM Administration Methylphenidate HCl 30 mg 01/17/24 09:00 Methylphenidate Hcl 10 Mg Tab PO DAILY TIM Metoprolol Succinate 50 mg 01/16/24 09:00 01/16/24 10:42 Metoprolol Succinate (Er) 50 Mg Tab.Er.24h PO 50 mg DAILY TIM Administration Naloxone HCl 0.2 mg 01/16/24 02:30 Naloxone 0.4 Mg/Ml 1 Ml Vial IV Q2M PRN Opioid Reversal Pantoprazole Sodium 40 mg 01/16/24 07:30 01/16/24 07:01 Pantoprazole 40 Mg Tablet PO 40 mg [id number] TIM Administration Pregabalin 150 mg 01/16/24 11:00 01/16/24 10:42 Pregabalin 75 Mg Cap PO 150 mg BID TIM Administration Rivaroxaban 20 mg 01/16/24 17:30 Rivaroxaban 20 Mg Tab PO W/SUPPER [facility] Protocol Intake and Output 01/15/24 01/16/24 01/16/24 22:59 06:59 14:59 Other: # Bowel Movements 0 Weight 116.12 kg 01/16/24 00:45 01/16/24 00:45
[2024-01-16] MEDS: DAPAGLIFLOZIN PROPANEDIOL 10 MG TABLET PO SCH (14:27)
[2024-01-16] MEDS: RIVAROXABAN 20 MG TAB PO SCH (17:53)
[2024-01-16] MEDS: FUROSEMIDE 10 MG/ML 4 ML VIAL IV SCH (20:06)
[2024-01-16] MEDS: ATORVASTATIN 40 MG TAB PO SCH (20:06)
[2024-01-17] MEDS: HYDROcodone/APAP 10-325MG 1 EACH TAB PO PRN (04:00)
[2024-01-17] MEDS: FLUoxetine HCL 20 MG CAP PO SCH (09:03)
[2024-01-17] MEDS: METHYLPHENIDATE HCL 10 MG TAB PO SCH (09:21)
[2024-01-17 10:35] LABS: Basophils # (A) 0.06 X 10*3/uL (0.00-0.10); Eosinophils # (A) 0.32 X 10*3/uL (0.04-0.35); Eosinophils % (A) 5.1 %; HCT 39.3 % (39.6-50.0); HGB 13.2 g/dL (13.0-17.0); Lymphocytes # (A) 1.53 X 10*3/uL (0.90-5.00); Lymphocytes % (A) 24.6 %; MCH 31.8 pg (27.0-32.0); MCHC 33.6 g/dL (32.0-37.0); MCV 94.7 FL (80.0-97.0); Mean Platelet Volume 9.7 FL (9.5-12.2); Monocytes # (A) 0.77 X 10*3/uL (0.20-1.00); Monocytes % (A) 12.4 %; NRBC Per 100 WBC 0 X 10*3/uL (0.00-0.01); Neutrophils # (A) 3.53 X 10*3/uL (1.80-7.70); Neutrophils % (A) 56.7 %; Platelet Count 126 X 10*3/uL (140-440); RBC 4.15 X 10*6/uL (4.40-5.60); RDW 12.9 % (11.5-14.5); WBC 6.22 X 10*3/uL (4.50-10.00)
[2024-01-17 10:50] LABS: ALT 37 U/L (10-49); AST 27 U/L (14-35); Albumin 4.1 g/dL (3.8-4.9); Albumin/Globulin Ratio 2.05 Ratio (1.60-3.17); Alkaline Phosphatase 49 U/L (41-126); BUN/Creat Ratio 18.36 Ratio (12.00-20.00); Blood Urea Nitrogen 25.7 mg/dL (9.0-27.0); Calcium 10.2 mg/dL (8.7-10.3); Carbon Dioxide 29.5 mmol/L (21.6-31.8); Chloride 104 mmol/L (96-109); Glucose 89 mg/dL (70-110); Sodium 142 mmol/L (135-145); Total Bilirubin 0.9 mg/dL (0.3-1.2); Total Protein 6.1 g/dL (6.2-8.2)
--- NOTE | 2024-01-17 11:58 | CA ---
Transthoracic Echo Report Name: Thony Jean Age: 68 Gender: M : 1955 Exam Date: 01/17/2024 10:29 Exam Location: [facility] Ht (in): 74 Wt (lb): 256 Ordering Physician: Martina Antonio MD Attending/Referring Phys: Cash Person Leslie Lew RDCS Procedure CPT: Indications: History of CHF Cardiac Hx: AV Replacement Technical Quality: Poor Contrast 1: Definity Total Dose (mL): 2 Contrast 2: Total Dose (mL): MEASUREMENTS (Male / Female) Normal Values 2D ECHO LV Diastolic Diameter PLAX 5.7 cm 4.2 - 5.9 / 3.9 - 5.3 cm LV Systolic Diameter PLAX 4.9 cm IVS Diastolic Thickness 1.2 cm 0.6 - 1.0 / 0.6 - 0.9 cm LVPW Diastolic Thickness 1.2 cm 0.6 - 1.0 / 0.6 - 0.9 cm LV Relative Wall Thickness 0.4 RV Internal Dim ED PLAX 2.7 cm LVOT Diameter 1.9 cm LA Systolic Diameter LX 7.1 cm 3.0 - 4.0 / 2.7 - 3.8 cm LA Volume 195.8 cm??? 18 - 58 / 22 - 52 cm??? LA Volume Index 78.5 cm???/m??? 16 - 28 cm???/m??? M-MODE Aortic Root Diameter MM 3.4 cm LA Systolic Diameter MM 6.1 cm LA Ao Ratio MM 1.8 DOPPLER AV Peak Velocity 159.9 cm/s AV Peak Gradient 10.2 mmHg AV Mean Velocity 109.1 cm/s AV Mean Gradient 5.1 mmHg AV Velocity Time Integral 29.2 cm AI Peak Velocity 342.8 cm/s AI Peak Gradient 47.0 mmHg AI Pressure Half Time 859.1 ms LVOT Peak Velocity 95.0 cm/s LVOT Peak Gradient 3.6 mmHg LVOT Velocity Time Integral 22.1 cm LVOT Stroke Volume 64.6 cm??? LVOT Stroke Volume Index 26.7 ml/m??? LVOT Cardiac Index 1785.8 cm???/min???m??? AV Area Cont Eq vti 2.2 cm??? AV Area Cont Eq pk 1.7 cm??? TR Peak Gradient 24.7 mmHg Right Atrial Pressure 10.0 mmHg FINDINGS Left Ventricle Left ventricular ejection fraction is estimated at 35-40 %. Moderate global hypokinesis.Mildly increased left ventricular wall thickness. Right Ventricle Moderate right ventricular dilatation. Right ventricular systolic pressure within normal limits. Right Atrium Severe right atrial dilatation. Catheter/pacemaker wire in the right atrial cavity. Left Atrium Severely increased left atrial diameter. Severely increased left atrial volume. Severely increased left atrial area. Mitral Valve Mitral valve thickened. Moderate to Severe mitral regurgitation. No mitral stenosis. Aortic Valve Bioprosthetic aortic valve without stenosis with a peak velocity of 1.59 m/s, peak gradient 10 mmHg, mean gradient 5.1mmHg. moderate perivalvular regurgitation Tricuspid Valve Structurally normal tricuspid valve. Moderate tricuspid regurgitation. No tricuspid stenosis. Pulmonic Valve Structurally normal pulmonic valve. Trace pulmonic regurgitation. No pulmonic stenosis. Pericardium No pericardial or pleural effusion. Aorta Normal size aortic root and proximal ascending aorta. CONCLUSIONS 1. Moderate global hypokinesis of the left ventricle 2. Moderate severe mitral regurgitation 3. Bioprosthetic aortic valve with moderate perivalvular regurgitation and mild thickening 4. Moderate tricuspid regurgitation with no evidence of pulmonary hypertension Previewed by: Dr. Matias Landaverde MD (Electronically Signed) Final Date: 17 January 2024 11:57
--- NOTE | 2024-01-17 14:24 | P.PN ---
Subjective Progress Note Date: 01/17/24 History of present illness; 68-year-old male with PMH of hypertension, hyperlipidemia, aortic valve replacement presents with complaints of chest pain and shortness of breath. Reports worsening shortness of breath since August, but states this has been much worse over the past month. Describes the chest pain as squeezing sensation over the left chest without radiation, at its worst it is a 10 out of 10, but currently 0 out of 10. Also notes some numbness in the left arm, but no pain. Reports yesterday it happened at rest which is unusual for him as this chest pain normally only happens on exertion. Notes his shortness of breath is worse on exertion, and that this evening he was unable to lay down due to increased shortness of breath and chest pain which caused him to come to the ER admits to lower extremity swelling. Reports he follows with Dr. Hilario, his public relations player, from [facility] but has been unable to get an appointment. Denies fever, chills, headache, cough, congestion, sore throat, nausea, vomiting, abdominal pain. At time of interview, patient is denying any current chest pain or shortness of breath. Imaging: -ER EKG: Electronic ventricular pacemaker. Ventricular rate 86. QRS 151. QT 386. QTc 429. -ER CXR: No acute findings in the chest. [date] Patient seen and examined at bedside. [] 01/17/2024 patient seen and examined at bedside. Patient reported that he was having increased urination and his shortness of breath has improved to the point that he can ambulate comfortably. WBC 6.22 hemoglobin 13.2 platelet count 1 26,000 sodium 142 potassium 5 chloride 104 bicarb 29.5 BUN 25.7 creatinine 1.4 glucose 89 AST 27 ALT 37 alk phos 49 albumin 4.1 BNP 5180 Review of systems: Pertinent positives and negatives as discussed in HPI, a complete review of systems was performed and all other systems are negative. Pertinent imaging and labs reviewed. Physical examination: Vital signs reviewed General: non toxic, no distress Derm: no unusual rashes/lesions, warm Head: atraumatic, normocephalic, symmetric Eyes: EOMI, anicteric sclera, pupils equal round reactive to light ENT: Nose and ears atraumatic Neck: No cervical lymphadenopathy, trachea midline, supple Mouth: no lip lesion, mucus membranes moist Cardiovascular: S1S2 reg, no murmur Lungs: CTA bilateral, no rhonchi, no rales, no accessory muscle use Abdominal: soft, nontender to palpation, no guarding Ext: muscle strength 5 out of 5 in all 4 extremities grossly, no gross muscle atrophy, no contractures, positive dorsalis pedis pulse bilateral, trace pedal edema Neuro: CN II-XI grossly intact, no gross focal neuro deficits Psych: Alert and oriented x3, appropriate affect and mood Assessment/Plan: 68-year-old male with PMH of hypertension, hyperlipidemia, aortic valve replacement presents with complaints of chest pain and shortness of breath. ACS ruled out. In CHF exacerbation. #. Acute on chronic systolic CHF #. Atypical chest pain, ACS ruled out #. History of bioprosthetic aortic valve replacement with moderate perivalvular regurgitation #. History of dual-chamber pacemaker implantation -Continue cardiac monitoring -O2 as needed -Echo ejection fraction estimated at 35 to 40% with moderate global hypokinesis. Moderate severe mitral regurgitation and bioprosthetic aortic valve with moderate perivalvular regurgitation and mild thickening. Moderate tricuspid regurgitation with no evidence of pulmonary hypertension. -Aspirin 81 mg po daily -Atorvastatin 40 mg po daily -Resume home spironolactone 25 mg p.o. twice daily -Cardiology consulted. IV Lasix for 24 hours. Continue Farxiga 10 mg p.o. daily. #Thrombocytopenia, stable Patient is stable. Has no bruising or bleeding. Platelet 1 26,000 today Will monitor CBC #. Elevated creatinine, resolved #Transaminitis, resolved Chronic conditions: #. Hypertension #. Hyperlipidemia #. Hypothyroidism #. Chronic back pain -Resume home medications once reconciled #. Paroxysmal A-fib On Xarelto and metoprolol F: Oral intake E: None N: Heart healthy diet DVT prophylaxis: Continue xarelto for afib GI prophylaxis: Protonix 40 mg p.o. daily Martina Antonio MD PGY-1/Ski Lift Attendant Dictation was produced using [employer] dictation software. please excuse any grammatical, word or spelling errors. I saw and evaluated the patient during the potts and critical portions of this encounter, and discussed the case in detail with the resident author of this note, I agree with the Assessment and Plan, and my changes, if any, are highlighted in blue. Objective - Vital Signs Vital signs: Vital Signs Temp 97.4 F L 01/17/24 07:00 Pulse 63 01/17/24 07:00 Resp 16 01/17/24 07:00 BP 123/72 01/17/24 07:00 Pulse Ox 98 01/17/24 07:00 FiO2 Intake & Output 01/16/24 01/17/24 01/17/24 18:59 06:59 18:59 Intake Total 236 2036 118 Balance 236 2036 118 Intake: Oral 236 7 118 Blood Product 360 Other: # Voids 5 2 1 # Bowel Movements 1 - Labs CBC & Chem 7: 01/17/24 07:08 01/17/24 07:08 Labs: Abnormal Lab Results - Last 24 Hours (Table) 01/17/24 01/17/24 Range/Units 07:08 07:08 RBC 4.15 L (4.40-5.60) X 10*6/uL Hct 39.3 L (39.6-50.0) % Plt Count 126 L (140-440) X 10*3/uL Est GFR (CKD-EPI) 55 L (>=60) Total Protein 6.1 L (6.2-8.2) g/dL
--- NOTE | 2024-01-17 14:40 | P.PN ---
Subjective Progress Note Date: 01/17/24 PROGRESS NOTE The patient is a 68-year-old male with a known history of CAD with prior stenting, aortic valve replacement with bioprosthetic aortic valve 17 years ago, permanent pacemaker implantation and persistent atrial fibrillation who presented with symptoms of progressive dyspnea and evidence of CHF. He is feeling better this morning. He has some respirophasic chest pain but his breathing is better and he is able to ambulate more. He denies any dizziness or palpitations. He continues to be in atrial fibrillation, anticoagulated. His echocardiogram showed an ejection fraction of 35 to 40% with moderate to severe mitral regurgitation and moderate perivalvular regurgitation, moderate tricuspid regurgitation with no evidence of pulmonary hypertension. Medications: Lipitor 40 mg daily, Farxiga 10 mg daily, Lasix 40 mg IV every 12 hours, lisinopril 5 mg daily, metoprolol succinate 50 mg daily, Xarelto 20 mg daily, spironolactone 25 mg twice a day PHYSICAL EXAMINATION: Blood pressure 132/70 heart rate 60 LUNGS: Few scattered wheezes HEART: Irregular rate and rhythm, S1, S2. No S3. Systolic ejection murmur at the base with a diastolic murmur and a holosystolic murmur at the apex ABDOMEN: Soft, nontender, no organomegaly EXTREMETIES: +1 edema LAB: Hemoglobin 13.2, potassium 5.0, BUN 25, creatinine 1.4. NT proBNP 5180 IMPRESSION: 1. CHF with impaired systolic function and valvular disease 2. Moderate severe mitral regurgitation 3. Bioprosthetic aortic valve with moderate regurgitation 4. Persistent atrial fibrillation, anticoagulated 5. Status post permanent pacemaker implantation 6. History of CAD with no evidence of acute coronary syndrome PLAN: 1. Continue IV diuretics for 24 hours 2. Patient will need to be evaluated as an outpatient by his primary cardiologi st for valvular intervention 3. Follow renal functions 4. Increase physical activity 5. If stable probable discharge home tomorrow Objective - Vital Signs Vital signs: Vital Signs Temp 97.4 F L 01/17/24 07:00 Pulse 63 01/17/24 07:00 Resp 16 01/17/24 07:00 BP 123/72 01/17/24 07:00 Pulse Ox 98 01/17/24 07:00 FiO2 Intake & Output 01/16/24 01/17/24 01/17/24 18:59 06:59 18:59 Intake Total 236 2037 118 Balance 236 2036 118 Intake: Oral 236 3587 118 Blood Product 360 Other: # Voids 5 2 1 # Bowel Movements 1 - Labs CBC & Chem 7: 01/17/24 07:08 01/17/24 07:08 Labs: Abnormal Lab Results - Last 24 Hours (Table) 01/17/24 01/17/24 Range/Units 07:08 07:08 RBC 4.15 L (4.40-5.60) X 10*6/uL Hct 39.3 L (39.6-50.0) % Plt Count 126 L (140-440) X 10*3/uL Est GFR (CKD-EPI) 55 L (>=60) Total Protein 6.1 L (6.2-8.2) g/dL
[2024-01-17] MEDS: SPIRONOLACTONE 25 MG TAB PO SCH (21:24)
[2024-01-18 03:09] VITALS: RESP 16
[2024-01-18 05:25] LABS: African American GFR (CKD) 67 (>60 ml/min/1.73 sqM); Anion Gap 5 mmol/L; Blood Urea Nitrogen 28 mg/dL (9-20); Calcium 10.6 mg/dL (8.4-10.2); Carbon Dioxide 31 mmol/L (22-30); Chloride 102 mmol/L (98-107); Glucose 92 mg/dL (74-99); Non-African American GFR(CKD) 58 (>60 ml/min/1.73 sqM); Potassium 4.4 mmol/L (3.5-5.1); Sodium 138 mmol/L (137-145)
[2024-01-18 07:24] VITALS: BP 117/65; PULSE 61; TEMP 97.5
[2024-01-18] MEDS: lisinopriL 5 MG TAB PO SCH (09:02)
[2024-01-18 09:51] LABS: Basophils # (A) 0.06 X 10*3/uL (0.00-0.10); Basophils % (A) 0.8 %; Eosinophils # (A) 0.25 X 10*3/uL (0.04-0.35); Eosinophils % (A) 3.5 %; HCT 43.8 % (39.6-50.0); HGB 15.3 g/dL (13.0-17.0); Lymphocytes % (A) 23.5 %; MCH 32.7 pg (27.0-32.0); MCHC 34.9 g/dL (32.0-37.0); MCV 93.6 FL (80.0-97.0); Mean Platelet Volume 10.4 FL (9.5-12.2); Monocytes % (A) 11.1 %; NRBC Per 100 WBC 0 X 10*3/uL (0.00-0.01); Neutrophils # (A) 4.38 X 10*3/uL (1.80-7.70); Neutrophils % (A) 60.7 %; Platelet Count 175 X 10*3/uL (140-440); RBC 4.68 X 10*6/uL (4.40-5.60); WBC 7.22 X 10*3/uL (4.50-10.00)
--- NOTE | 2024-01-18 14:30 | P.DS ---
Providers Date of admission: 01/16/24 01:55 Attending physician: Santos Hernandez MD Consults: 01/16/24 02:30 Consult Physician Urgent Consulting Provider: [facility] Consult Reason/Comments: chest pain Do you want consulting provider notified?: Yes, Notify in am Primary care physician: Katie [facility] Hospital Course: Hospital Course: 68-year-old male with PMH of hypertension, hyperlipidemia, aortic valve replacement presents with complaints of chest pain and shortness of breath. Imaging on admission -ER EKG: Electronic ventricular pacemaker. Ventricular rate 86. QRS 151. QT 386. QTc 429. -ER CXR: No acute findings in the chest. Patient evaluated for CHF exacerbation and atypical chest pain to rule out ACS. Cardiology consulted, IV Lasix given, echo ordered and troponins trended. Creatinine was found to be elevated and IV fluids given and creatinine levels improved. Echocardiogram showed moderate global hypokinesis of the left ventricle with ejection fraction of 35 to 40% and moderate Shirley-valvular regurgitation and mild thickening of the bioprosthetic aortic valve. Patient symptoms improved over the duration of hospital stay. No new complications or new symptoms occurred. Patient is discharged home today and prescribed furosemide and dapagliflozin. Patient advised to follow-up with PCP and cardiothoracic surgery for evaluation of aortic valve. Final Diagnosis: #. Acute on chronic systolic CHF, stable #. Atypical chest pain, ACS ruled out #. History of bioprosthetic aortic valve replacement with moderate perivalvular regurgitation #. History of dual-chamber pacemaker implantation #. Thrombocytopenia, stable #. Elevated creatinine, resolved #. Transaminitis, resolved #. Hypertension #. Hyperlipidemia #. Hypothyroidism #. A-fib, paroxysmal, controlled #. Chronic back pain Physical examination: Vital signs reviewed General: non toxic, no distress, appears at stated age, normal weight Derm: no unusual rashes/lesions, warm Head: atraumatic, normocephalic, symmetric Eyes: EOMI, anicteric sclera, pupils equal round reactive to light ENT: Nose and ears atraumatic Neck: No cervical lymphadenopathy, trachea midline, supple Mouth: no lip lesion, mucus membranes moist Cardiovascular: S1S2 reg, no murmur Lungs: CTA bilateral, no rhonchi, no rales, no accessory muscle use Abdominal: soft, nondistended, nontender to palpation, no guarding Ext: muscle strength 5 out of 5 in all 4 extremities grossly, no gross muscle atrophy, no contractures, positive dorsalis pedis pulse bilateral, no edema Neuro: CN II-XI grossly intact, no gross focal neuro deficits Psych: Alert, oriented, appropriate affect and mood I saw and evaluated the patient during the potts and critical portions of this encounter, and discussed the case in detail with the resident author of this note, I agree with the Assessment and Plan, and my changes, if any, are highlighted in blue. Patient Condition at Discharge: Stable Plan - Discharge Summary Discharge Rx Participant: No New Discharge Prescriptions: New Furosemide [Lasix] 40 mg PO DAILY #90 tablet Dapagliflozin Propanediol [Farxiga] 10 mg PO DAILY #90 tab Continue Pregabalin [Lyrica] 150 mg PO BID fentaNYL 100MCG/HR PATCH [Duragesic 100MCG/HR] 1 patch TRANSDERM Q72H Metoprolol Succinate (ER) [Toprol XL] 50 mg PO DAILY Baclofen 10 mg PO HS PRN PRN Reason: Muscle Spasm Levothyroxine Sodium [Synthroid] 50 mcg PO DAILY HYDROcodone/APAP 10-325MG [[place] 10-325] 1 tab PO BID PRN PRN Reason: Pain Atorvastatin [Lipitor] 40 mg PO HS #90 tablet lisinopriL [Zestril] 5 mg PO DAILY Spironolactone [Aldactone] 25 mg PO BID Rivaroxaban [Xarelto] 20 mg PO W/SUPPER ALPRAZolam [Xanax] 1 mg PO DAILY PRN PRN Reason: Anxiety FLUoxetine HCL [PROzac] 40 mg PO DAILY Methylphenidate HCl 30 mg PO DAILY Discharge Medication List ALPRAZolam [Xanax] 1 mg PO DAILY PRN 09/01/23 [History] Baclofen 10 mg PO HS PRN 09/01/23 [History] FLUoxetine HCL [PROzac] 40 mg PO DAILY 09/01/23 [History] HYDROcodone/APAP 10-325MG [[place] 10-325] 1 tab PO BID PRN 09/01/23 [History] Levothyroxine Sodium [Synthroid] 50 mcg PO DAILY 09/01/23 [History] Metoprolol Succinate (ER) [Toprol XL] 50 mg PO DAILY 09/01/23 [History] Pregabalin [Lyrica] 150 mg PO BID 09/01/23 [History] Rivaroxaban [Xarelto] 20 mg PO W/SUPPER 09/01/23 [History] Spironolactone [Aldactone] 25 mg PO BID 09/01/23 [History] fentaNYL 100MCG/HR PATCH [Duragesic 100MCG/HR] 1 patch TRANSDERM Q72H 09/01/23 [History] lisinopriL [Zestril] 5 mg PO DAILY 09/01/23 [History] Atorvastatin [Lipitor] 40 mg PO HS #90 tablet 09/02/23 [Rx] Methylphenidate HCl 30 mg PO DAILY 01/16/24 [History] Dapagliflozin Propanediol [Farxiga] 10 mg PO DAILY #90 tab 01/18/24 [Rx] Furosemide [Lasix] 40 mg PO DAILY #90 tablet 01/18/24 [Rx] Follow up Appointment(s)/Referral(s): Azeem Gilliam MD [REFERRING] - 1 Week Katie Álvarez MD [Primary Care Provider] - 1-2 days Patient Instructions/Handouts: Chest Pain (DC) Discharge Disposition: HOME SELF-CARE
== END 2024-01-18 13:14 | disposition home or self-care (01) ==
LOC: EC 00:31 → 6NMEDSUR 01:55
PROVIDERS: ADMIT Internal Medicine; ATTEND Internal Medicine
DX: R07.89 Other chest pain (principal); I11.0 Hypertensive heart disease with heart failure; I50.43 Acute on chronic combined systolic (congestive) and diastolic (congestive) heart failure; T82.03XA Leakage of heart valve prosthesis, initial encounter; Z95.3 Presence of xenogenic heart valve; I08.1 Rheumatic disorders of both mitral and tricuspid valves; I95.9 Hypotension, unspecified; I48.19 Other persistent atrial fibrillation; I25.10 Atherosclerotic heart disease of native coronary artery without angina pectoris; D69.6 Thrombocytopenia, unspecified; E78.5 Hyperlipidemia, unspecified; E03.9 Hypothyroidism, unspecified; G89.29 Other chronic pain; M54.9 Dorsalgia, unspecified; R74.01 Elevation of levels of liver transaminase levels; R79.89 Other specified abnormal findings of blood chemistry; Z79.890 Hormone replacement therapy; Z79.01 Long term (current) use of anticoagulants; Z79.891 Long term (current) use of opiate analgesic; Z79.899 Other long term (current) drug therapy; Z95.5 Presence of coronary angioplasty implant and graft; Z95.0 Presence of cardiac pacemaker
CPT/HCPCS: 96376 ×3; 96361 ×2; 96374; 99285; 36415; 93005; 83880 ×2; 80053 ×2; 80048; 83735 ×2; 84484; 85025 ×3; 85610; 85730; 71046; G0378 ×3; C8929; J1940 ×3; Q9957; 93306

== ENCOUNTER 2024-02-16 15:34 | Observation (INO) | payer MEDICARE ==
--- NOTE | 2024-02-16 16:26 | ED ---
Altered Mental Status HPI - General Chief Complaint: Altered Mental Status Stated Complaint: AMS,L arm numbness Time Seen by Provider: 02/16/24 16:25 Source: patient, RN notes reviewed, old records reviewed Mode of arrival: ambulatory Limitations: no limitations - History of Present Illness Initial Comments: This is a 68-year-old male coming in for confusion altered mental status for a few days now 3 days per at bedside. Patient is also having left arm numbness tingling weakness and some shaking, does generally feel overall weak and lightheaded. Patient was recently admitted over with some medication changes related to diabetes as well as heart failure MD Complaint: altered mental status, confusion, weakness -: hour(s) Consistency of Symptoms: getting worse Associated Symptoms: weakness - Related Data Home Medications Medication Instructions Recorded Confirmed ALPRAZolam [Xanax] 1 mg PO DAILY PRN 09/01/23 01/16/24 Baclofen 10 mg PO HS PRN 09/01/23 01/16/24 FLUoxetine HCL [PROzac] 40 mg PO DAILY 09/01/23 01/16/24 HYDROcodone/APAP 10-325MG [[place] 1 tab PO BID PRN 09/01/23 01/16/24 10-325] Levothyroxine Sodium [Synthroid] 50 mcg PO DAILY 09/01/23 01/16/24 Metoprolol Succinate (ER) [Toprol 50 mg PO DAILY 09/01/23 01/16/24 XL] Pregabalin [Lyrica] 150 mg PO BID 09/01/23 01/16/24 Rivaroxaban [Xarelto] 20 mg PO W/SUPPER 09/01/23 01/16/24 Spironolactone [Aldactone] 25 mg PO BID 09/01/23 01/16/24 fentaNYL 100MCG/HR PATCH 1 patch TRANSDERM Q72H 09/01/23 01/16/24 [Duragesic 100MCG/HR] lisinopriL [Zestril] 5 mg PO DAILY 09/01/23 01/16/24 Methylphenidate HCl 30 mg PO DAILY 01/16/24 01/16/24 Previous Rx's Medication Instructions Recorded Atorvastatin [Lipitor] 40 mg PO HS #90 tablet 09/02/23 Dapagliflozin Propanediol [Farxiga] 10 mg PO DAILY #90 tab 01/18/24 Furosemide [Lasix] 40 mg PO DAILY #90 tablet 01/18/24 Allergies Allergy/AdvReac Type Severity Reaction Status Date / Time No Known Allergies Allergy Verified 02/16/24 16:22 Review of Systems ROS Statement: Those systems with pertinent positive or pertinent negative responses have been documented in the HPI. ROS Other: All systems not noted in ROS Statement are negative. Past Medical History Past Medical History: Hyperlipidemia, Hypertension, Thyroid Disorder Additional Past Medical History / Comment(s): back pain, low T History of Any Multi-Drug Resistant Organisms: None Reported Past Surgical History: Back Surgery, Cholecystectomy Additional Past Surgical History / Comment(s): aorta valve replacement Past Anesthesia/Blood Transfusion Reactions: No Reported Reaction Past Psychological History: Depression Smoking Status: Never smoker Past Alcohol Use History: None Reported Past Drug Use History: None Reported - Past Family History Mother Family Medical History: Hyperlipidemia General Exam Limitations: no limitations General appearance: alert, in no apparent distress Head exam: Present: atraumatic, normocephalic, normal inspection Eye exam: Present: normal appearance, PERRL, EOMI. Absent: scleral icterus, conjunctival injection, periorbital swelling ENT exam: Present: normal exam, mucous membranes moist Neck exam: Present: normal inspection. Absent: tenderness, meningismus, lymphadenopathy Respiratory exam: Present: normal lung sounds bilaterally. Absent: respiratory distress, wheezes, rales, rhonchi, stridor Cardiovascular Exam: Present: regular rate, normal rhythm, normal heart sounds. Absent: systolic murmur, diastolic murmur, rubs, gallop, clicks GI/Abdominal exam: Present: soft, normal bowel sounds. Absent: distended, tenderness, guarding, rebound, rigid Extremities exam: Present: normal inspection, full ROM, normal capillary refill. Absent: tenderness, pedal edema, joint swelling, calf tenderness Back exam: Present: normal inspection Neurological exam: Present: alert, oriented X3, CN II-XII intact Psychiatric exam: Present: normal affect, normal mood Skin exam: Present: warm, dry, intact, normal color. Absent: rash Course Vital Signs 02/16/24 02/16/24 16:20 17:03 Temperature 98.2 F Pulse Rate 70 87 Respiratory 20 Rate Blood Pressure 92/48 72/59 O2 Sat by Pulse 98 Oximetry - Reevaluation(s) Reevaluation #1: 02/16/24 17:12 Medical records reviewed Reevaluation #2: 02/16/24 18:34 No change in symptoms here in the ER Reevaluation #3: 02/16/24 18:35 Patient informed of results and questions answered Reevaluation #4: Was pt. sent in by a medical professional or institution (, DAVID, BUCKET OPERATOR, urgent care, hospital, or fci...) When possible be specific @ -no Did you speak to anyone other than the patient for history (EMS, parent, family, police, friend...)? What history was obtained from this source @ -no Did you review nursing and triage notes (agree or disagree)? Why? @ -agree Are old charts reviewed (outside hosp., previous admission, EMS record, old EKG, old radiological studies, urgent care reports/EKG's, fci records)? Report findings @ -yes Differential Diagnosis (chest pain, altered mental status, abdominal pain women, abdominal pain men, vaginal bleeding, weakness, fever, dyspnea, syncope, headache, dizziness, GI bleed, back pain, seizure, CVA, palpatations, mental health, musculoskeletal)? @ -prior EKG interpreted by me (3pts min.). @ -yes X-rays interpreted by me (1pt min.). @ -yes negative for acute disease CT interpreted by me (1pt min.). @ -no U/S interpreted by me (1pt. min.). @ -no What testing was considered but not performed or refused? (CT, X-rays, U/S, labs)? Why? @ -none What meds were considered but not given or refused? Why? @ -none Did you discuss the management of the patient with other professionals (professionals i.e. DAVID Hooker, BUCKET OPERATOR, lab, RT, psych nurse, home health care social worker, road sign installer, teacher, security patrol officer, case advocate)? Give summary @ -no Was smoking cessation discussed for >3mins.? @ -no Was critical care preformed (if so, how long)? @ -no Were there social determinants of health that impacted care today? How? (Homelessness, low income, unemployed, alcoholism, drug addiction, transportation, low edu. Level, literacy, decrease access to med. care, snf, rehab)? @ -none Was there de-escalation of care discussed even if they declined (Discuss DNR or withdrawal of care, Hospice)? DNR status @ -no What co-morbidities impacted this encounter? (DM, HTN, Smoking, COPD, CAD, Cancer, CVA, ARF, Chemo, Hep., AIDS, mental health diagnosis, sleep apnea, morbid obesity)? @ -none Was patient admitted / discharged? Hospital course, mention meds given and route, prescriptions, significant lab abnormalities, going to OR and other pertinent info. @ - Undiagnosed new problem with uncertain prognosis? @ -no Drug Therapy requiring intensive monitoring for toxicity (Heparin, Nitro, Insulin, Cardizem)? @ -no Were any procedures done? @ -no Diagnosis/symptom? @ - Acute, or Chronic, or Acute on Chronic? @ -Acute Uncomplicated (without systemic symptoms) or Complicated (systemic symptoms)? @ -Complicated Side effects of treatment? @ -no Exacerbation, Progression, or Severe Exacerbation? @ -exacerbation Poses a threat to life or bodily function? How? (Chest pain, USA, SC, pneumonia, PE, COPD, DKA, ARF, appy, cholecystitis, CVA, Diverticulitis, Homicidal, Suicidal, threat to staff... and all critical care pts) @ -yes Reevaluation #5: Differential Altered Mental Status: Hypoglycemia, DKA, hypercapnia, ETOH, overdose, CO poisoning, trauma, myxedema coma, HTN encephalopathy, infection, encephalitis, psychosis, intercranial hemorrhage, hepatic encephalopathy, meningitis, CVA, this is not meant to be an all-inclusive list Differential Weakness: Hypoglycemia, shock, sepsis, hyponatremia, anemia, infection, SC, ETOH, adverse medicine reaction, overdose, stroke, this is not meant to be an all-inclusive list. - Consultations Consultation #1: Spoke with hayden who agrees to admit this patient Medical Decision Making - Medical Decision Making 68 male to the ER for evaluation of altered mental status confusion weakness patient has a worsening acute kidney injury secondary to increased Lasix dosing, patient will admit for kidney disease evaluation, medication monitoring - Lab Data Result diagrams: 02/16/24 17:04 02/16/24 17:04 Lab Results 02/16/24 02/16/24 02/16/24 Range/Units 17:04 17:04 17:04 WBC 8.1 (3.8-10.6) k/uL RBC 4.18 L (4.30-5.90) m/uL Hgb 13.5 (13.0-17.5) gm/dL Hct 39.7 (39.0-53.0) % MCV 94.9 (80.0-100.0) fL MCH 32.2 (25.0-35.0) pg MCHC 34.0 (31.0-37.0) g/dL RDW 13.3 (11.5-15.5) % Plt Count 138 L (150-450) k/uL MPV 7.5 Neutrophils % 59 % Lymphocytes % 26 % Monocytes % 9 % Eosinophils % 4 % Basophils % 1 % Neutrophils # 4.7 (1.3-7.7) k/uL Lymphocytes # 2.1 (1.0-4.8) k/uL Monocytes # 0.7 (0-1.0) k/uL Eosinophils # 0.3 (0-0.7) k/uL Basophils # 0.1 (0-0.2) k/uL PT 12.7 H (10.0-12.5) sec INR 1.2 H (<1.2) APTT 29.7 (22.0-30.0) sec Sodium 135 L (137-145) mmol/L Potassium 4.5 (3.5-5.1) mmol/L Chloride 101 (98-107) mmol/L Carbon Dioxide 23 (22-30) mmol/L Anion Gap 11 mmol/L BUN 46 H (9-20) mg/dL Creatinine 2.45 H (0.66-1.25) mg/dL Est GFR (CKD-EPI)AfAm 30 (>60 ml/min/1.73 sqM) Est GFR (CKD-EPI)NonAf 26 (>60 ml/min/1.73 sqM) Glucose 102 H (74-99) mg/dL POC Glucose (mg/dL) (70-110) mg/dL POC Glu Buckle Stapler ID Plasma Lactic Acid Kevan (0.7-2.0) mmol/L Calcium 9.9 (8.4-10.2) mg/dL Phosphorus 4.0 (2.5-4.5) mg/dL Magnesium 2.3 (1.6-2.3) mg/dL Total Bilirubin 0.8 (0.2-1.3) mg/dL AST 30 (17-59) U/L ALT 30 (4-49) U/L Alkaline Phosphatase 52 (38-126) U/L Ammonia (<30) umol/L Troponin I (0.000-0.034) ng/mL Total Protein 6.4 (6.3-8.2) g/dL Albumin 4.1 (3.5-5.0) g/dL Urine Opiates Screen (NotDetected) Ur Oxycodone Screen (NotDetected) Urine Methadone Screen (NotDetected) Ur Barbiturates Screen (NotDetected) U Tricyclic Antidepress (NotDetected) Ur Phencyclidine Scrn (NotDetected) Ur Amphetamines Screen (NotDetected) U Methamphetamines Scrn (NotDetected) U Benzodiazepines Scrn (NotDetected) Urine Cocaine Screen (NotDetected) U Marijuana (THC) Screen (NotDetected) Serum Alcohol <10 mg/dL 02/16/24 02/16/24 02/16/24 Range/Units 17:04 17:04 17:05 WBC (3.8-10.6) k/uL RBC (4.30-5.90) m/uL Hgb (13.0-17.5) gm/dL Hct (39.0-53.0) % MCV (80.0-100.0) fL MCH (25.0-35.0) pg MCHC (31.0-37.0) g/dL RDW (11.5-15.5) % Plt Count (150-450) k/uL MPV Neutrophils % % Lymphocytes % % Monocytes % % Eosinophils % % Basophils % % Neutrophils # (1.3-7.7) k/uL Lymphocytes # (1.0-4.8) k/uL Monocytes # (0-1.0) k/uL Eosinophils # (0-0.7) k/uL Basophils # (0-0.2) k/uL PT (10.0-12.5) sec INR (<1.2) APTT (22.0-30.0) sec Sodium (137-145) mmol/L Potassium (3.5-5.1) mmol/L Chloride (98-107) mmol/L Carbon Dioxide (22-30) mmol/L Anion Gap mmol/L BUN (9-20) mg/dL Creatinine (0.66-1.25) mg/dL Est GFR (CKD-EPI)AfAm (>60 ml/min/1.73 sqM) Est GFR (CKD-EPI)NonAf (>60 ml/min/1.73 sqM) Glucose (74-99) mg/dL POC Glucose (mg/dL) 107 (70-110) mg/dL POC Glu Buckle Stapler ID Branden Whitley Plasma Lactic Acid Kevan 1.3 (0.7-2.0) mmol/L Calcium (8.4-10.2) mg/dL Phosphorus (2.5-4.5) mg/dL Magnesium (1.6-2.3) mg/dL Total Bilirubin (0.2-1.3) mg/dL AST (17-59) U/L ALT (4-49) U/L Alkaline Phosphatase (38-126) U/L Ammonia 21 (<30) umol/L Troponin I <0.012 (0.000-0.034) ng/mL Total Protein (6.3-8.2) g/dL Albumin (3.5-5.0) g/dL Urine Opiates Screen (NotDetected) Ur Oxycodone Screen (NotDetected) Urine Methadone Screen (NotDetected) Ur Barbiturates Screen (NotDetected) U Tricyclic Antidepress (NotDetected) Ur Phencyclidine Scrn (NotDetected) Ur Amphetamines Screen (NotDetected) U Methamphetamines Scrn (NotDetected) U Benzodiazepines Scrn (NotDetected) Urine Cocaine Screen (NotDetected) U Marijuana (THC) Screen (NotDetected) Serum Alcohol mg/dL 02/16/24 Range/Units 17:41 WBC (3.8-10.6) k/uL RBC (4.30-5.90) m/uL Hgb (13.0-17.5) gm/dL Hct (39.0-53.0) % MCV (80.0-100.0) fL MCH (25.0-35.0) pg MCHC (31.0-37.0) g/dL RDW (11.5-15.5) % Plt Count (150-450) k/uL MPV Neutrophils % % Lymphocytes % % Monocytes % % Eosinophils % % Basophils % % Neutrophils # (1.3-7.7) k/uL Lymphocytes # (1.0-4.8) k/uL Monocytes # (0-1.0) k/uL Eosinophils # (0-0.7) k/uL Basophils # (0-0.2) k/uL PT (10.0-12.5) sec INR (<1.2) APTT (22.0-30.0) sec Sodium (137-145) mmol/L Potassium (3.5-5.1) mmol/L Chloride (98-107) mmol/L Carbon Dioxide (22-30) mmol/L Anion Gap mmol/L BUN (9-20) mg/dL Creatinine (0.66-1.25) mg/dL Est GFR (CKD-EPI)AfAm (>60 ml/min/1.73 sqM) Est GFR (CKD-EPI)NonAf (>60 ml/min/1.73 sqM) Glucose (74-99) mg/dL POC Glucose (mg/dL) (70-110) mg/dL POC Glu Buckle Stapler ID Plasma Lactic Acid Kevan (0.7-2.0) mmol/L Calcium (8.4-10.2) mg/dL Phosphorus (2.5-4.5) mg/dL Magnesium (1.6-2.3) mg/dL Total Bilirubin (0.2-1.3) mg/dL AST (17-59) U/L ALT (4-49) U/L Alkaline Phosphatase (38-126) U/L Ammonia (<30) umol/L Troponin I (0.000-0.034) ng/mL Total Protein (6.3-8.2) g/dL Albumin (3.5-5.0) g/dL Urine Opiates Screen Detected H (NotDetected) Ur Oxycodone Screen Not Detected (NotDetected) Urine Methadone Screen Not Detected (NotDetected) Ur Barbiturates Screen Not Detected (NotDetected) U Tricyclic Antidepress Not Detected (NotDetected) Ur Phencyclidine Scrn Not Detected (NotDetected) Ur Amphetamines Screen Not Detected (NotDetected) U Methamphetamines Scrn Not Detected (NotDetected) U Benzodiazepines Scrn Not Detected (NotDetected) Urine Cocaine Screen Not Detected (NotDetected) U Marijuana (THC) Screen Not Detected (NotDetected) Serum Alcohol mg/dL - EKG Data -: EKG Interpreted by Me (EKG is undetermined 99 QRS 157 QTc 452, does appear paced) - Radiology Data Radiology results: report reviewed (CT brain and chest x-ray are negative for acute disease), image reviewed Disposition Clinical Impression: Dehydration, MICHAEL (acute kidney injury), Altered mental status Disposition: ADMITTED IP TO THIS HOSP Condition: Fair Is patient prescribed a controlled substance at d/c from ED?: No Referrals: Katie Álvarez MD [Primary Care Provider] - 1-2 days Time of Disposition: 18:30
[2024-02-16 17:07] LABS: Glucose,Whole Blood 107 mg/dL (70-110)
[2024-02-16] MEDS: SODIUM CHLORIDE 0.9% 1,000 ML IV ONE (17:07)
[2024-02-16 17:14] LABS: Basophils # (A) 0.1 k/uL (0-0.2); Basophils % (A) 1 %; Eosinophils # (A) 0.3 k/uL (0-0.7); Eosinophils % (A) 4 %; HCT 39.7 % (39.0-53.0); HGB 13.5 gm/dL (13.0-17.5); Lymphocytes # (A) 2.1 k/uL (1.0-4.8); Lymphocytes % (A) 26 %; MCH 32.2 pg (25.0-35.0); MCV 94.9 fL (80.0-100.0); Mean Platelet Volume 7.5; Monocytes # (A) 0.7 k/uL (0-1.0); Monocytes % (A) 9 %; Neutrophils # (A) 4.7 k/uL (1.3-7.7); Neutrophils % (A) 59 %; Platelet Count 138 k/uL (150-450); RBC 4.18 m/uL (4.30-5.90); RDW 13.3 % (11.5-15.5); WBC 8.1 k/uL (3.8-10.6)
[2024-02-16 17:23] LABS: Lactic Acid, Venous 1.3 mmol/L (0.7-2.0)
[2024-02-16 17:25] LABS: ALT 30 U/L (4-49); AST 30 U/L (17-59); African American GFR (CKD) 30 (>60 ml/min/1.73 sqM); Albumin 4.1 g/dL (3.5-5.0); Alcohol <10 mg/dL; Alkaline Phosphatase 52 U/L (38-126); Anion Gap 11 mmol/L; Blood Urea Nitrogen 46 mg/dL (9-20); Calcium 9.9 mg/dL (8.4-10.2); Carbon Dioxide 23 mmol/L (22-30); Chloride 101 mmol/L (98-107); Glucose 102 mg/dL (74-99); INR 1.2 (<1.2); Magnesium 2.3 mg/dL (1.6-2.3); Non-African American GFR(CKD) 26 (>60 ml/min/1.73 sqM); Partial Thromboplastin Time 29.7 sec (22.0-30.0); Potassium 4.5 mmol/L (3.5-5.1); Prothrombin Time 12.7 sec (10.0-12.5); Sodium 135 mmol/L (137-145); Total Bilirubin 0.8 mg/dL (0.2-1.3); Total Protein 6.4 g/dL (6.3-8.2)
[2024-02-16 18:11] LABS: Amphetamine Screen,Urine Not Detected (NotDetected); Barbiturate Screen,Urine Not Detected (NotDetected); Benzodiazepines Screen,Urine Not Detected (NotDetected); Cocaine Screen,Urine Not Detected (NotDetected); Methadone Screen, Urine Not Detected (NotDetected); Opiate Screen,Urine Detected (NotDetected); Oxycodone Screen, Urine Not Detected (NotDetected); Phencyclidine Screen,Urine Not Detected (NotDetected); Tricyclic Antidepressant,Urine Not Detected (NotDetected); Urn Cannabinoid Scrn Not Detected (NotDetected)
--- NOTE | 2024-02-16 18:25 | XR ---
EXAMINATION TYPE: XR chest 2V DATE OF EXAM: 02/16/2024 6:11 PM COMPARISON: Chest radiographs from 01/16/2024 CLINICAL INDICATION: Male, 68 years old with history of altered mental status; [facility] TECHNIQUE: XR chest 2V Frontal and lateral views of the chest. FINDINGS: Lungs/Pleura: There is no evidence of pleural effusion, focal consolidation, or pneumothorax. Pulmonary vascularity: Unremarkable. Heart/mediastinum: Cardiomediastinal silhouette is enlarged and stable. Two lead cardiac conduction d evice overlying the left hemithorax with lead tips projecting over the right ventricle and right atri um. Musculoskeletal: No acute osseous pathology. Midline sternotomy wires are noted. IMPRESSION: No acute cardiopulmonary disease/process. [facility], , 02/16/2024 6:23 PM
--- NOTE | 2024-02-16 18:33 | CT ---
EXAMINATION TYPE: CT brain wo con DATE OF EXAM: 02/16/2024 6:10 PM COMPARISON: None. CLINICAL INDICATION: Male, 68 years old with history of Altered mental status, AMS. TECHNIQUE: Brain: Axial CT images of the brain were obtained with coronal and sagittal reformats created and rev iewed. Contrast used: None. Oral contrast used: None. CT DLP: 1243.4 mGycm, Automated exposure control for dose reduction was used. FINDINGS: Brain: Extra-axial spaces: No abnormal extra-axial fluid collections. Ventricular system: Within normal limits Cerebral parenchyma: No acute intraparenchymal hemorrhage or mass effect. The khan-white junction is well differentiated. Cerebellum: Unremarkable. Mass effect: No evidence of midline shift. Intracranial vasculature: unremarkable Soft tissues: Normal. Calvarium/osseous structures: No depressed skull fracture. Paranasal sinuses and mastoid air cells: Mild scattered paranasal sinus disease. Visualized orbits: Orbital contents are intact. IMPRESSION: No acute intracranial process. [facility], , 02/16/2024 6:31 PM
[2024-02-16] MEDS ORDERED: NALOXONE 0.4 MG/ML 1 ML VIAL IV PRN (18:35)
[2024-02-16] MEDS ORDERED: MORPHINE SULFATE 4 MG/ML SYRINGE IV PRN (18:35)
[2024-02-16] MEDS ORDERED: ONDANSETRON 4 MG/2 ML VIAL IVP PRN (18:35)
[2024-02-16] MEDS: SODIUM CHLORIDE 0.9% 1,000 ML IV SCH (19:52)
--- NOTE | 2024-02-16 23:20 | P.HPIM ---
History of Present Illness H&P Date: 02/16/24 Chief Complaint: Altered mental status, acute kidney injury Patient is a 68-year-old male with hyperlipidemia, hypertension, history of bioprosthetic aortic valve replacement with moderate perivalvular regurgitation, systolic CHF (EF35-40% on Echo 01/16/24) history of dual-chamber pacemaker implantation and history of paroxysmal atrial fibrillation on Xarelto 20 mg daily presented to the emergency department for confusion/altered mental status for the past 3 days. Patient was recently hospitalized about a month ago for acute on chronic systolic congestive heart failure. Patient reported that for the past 3 days he has not been feeling like himself, and this morning he noticed a constant tingling and numbness sensation running down from his left shoulder to fingertips of his left hand that got worse if he squeezed his hand. This started when he was doing the laundry this morning. Slowly got worse over time and this made the patient to come to hospital for evaluation. Patient reported he never had anything like this before. Patient did report having a history of chronic constipation but has been having watery diarrhea for the past 3 days. Patient reported that the tingling and numbness got better after he came to the hospital. Patient has been taking 40 mg Lasix twice a day and Farxiga 10 mg daily and patient feels this might cause him to be dehydrated. He currently denies fever, chills, nausea, vomiting, chest pain, shortness of breath, belly pain, hematochezia/melena. ED documentation reviewed. In the ED patient was treated with a 1 L bolus of normal saline. Vitals on admission temperature 98.4, pulse rate 87, respiratory rate 18, blood pressure 130/100, O2 sat 97% on room air EKG independently interpreted as electronic ventricular pacemaker rhythm with a ventricular rate of 99 bpm, QTc interval 452 ms CXR shows no acute cardiopulmonary disease/process CT of brain without contrast shows no acute intracranial process Labs on admission show WBC 8.1, hemoglobin 13.5, hematocrit 39.7, platelets 138, PT 12.7, PTT 29.7, INR 1.2, sodium 135, potassium 4.5, chloride 101, carbon dioxide 23, BUN 46, creatinine 2.45, glucose 102, lactic acid 1.3, troponin less than 0.012 Urine toxicology shows positive for opiates Review of systems: Pertinent positives and negatives as discussed in HPI, a complete review of systems was performed and all other systems are negative. PMH: hyperlipidemia, hypertension, history of bioprosthetic aortic valve replacement with moderate perivalvular regurgitation (in 2005), history of dual- chamber pacemaker implantation and history of paroxysmal atrial fibrillation on Xarelto 20 mg daily PSH: Back surgery, cholecystectomy, aortic valve replacement FMH: Brother has a history of SC and CABG x 3 Allergies: No known drug allergies Social history: Tobacco: Never smoker Alcohol: None reported Recreational drugs: No drug use Travel: No travel history Sick contacts: No sick contacts Physical examination: Vital signs reviewed General: nontoxic, no distress, appears at stated age Derm: warm, dry, intact Head: atraumatic, normocephalic, symmetric Eyes: EOMI, anicteric sclera Mouth: no lip lesion, mucus membranes moist Cardiovascular: S1 S2 reg, no murmur Lungs: CTA bilateral, no rhonchi, no rales, no accessory muscle use Abdominal: soft, non-tender to palpation Extremities: No cyanosis, clubbing. Trace bilateral lower extremity edema Neuro: Alert, Gross neurological examination did not reveal any focal deficits. Cranial nerves II to XII grossly intact. Bilateral upper and lower extremity muscle strength intact 5 out of 5 and sensation intact. Psych: well appearing, appropriate affect Assessment/Plan: 68-year-old male with hyperlipidemia hypertension history of bioprosthetic aortic valve replacement with moderate perivalvular regurgitation, history of dual-chamber pacemaker implantation and history of paroxysmal atrial fibrillation on Xarelto 20 mg daily presented to the emergency department for confusion/altered mental status for the past 3 days. Patient will be admitted to inpatient medicine service. Active: #. Altered mental status, likely secondary to dehydration #. Altered mental status, may be secondary to recent medication change Lasix 40 mg daily and Farxiga 10 mg daily were added to patient's home medications about a month ago, patient reports he has been taking Lasix 40 mg twice daily. Patient received 1 L bolus normal saline given by ED Continue with normal saline at 20 cc an hour #. L upper extremity paresthesias CT of brain without contrast shows no acute intracranial process Consult neurology Continue home Plavix 75 mg daily Continue home atorvastatin 40 mg at bedtime ABCD score of 4 points #. Acute kidney injury, likely secondary to dehydration BUN 46, creatinine 2.45 Baseline creatinine of 1.4 Continue with normal saline at 20 cc an hour Judicious use of IV fluids this patient has a history of congestive heart failure with left ventricular estimated ejection fraction of 35 to 40% Obtain morning BMP Consult nephrology #. Thrombocytopenia Platelets 138 Monitor morning CBC #. Mild hyponatremia Sodium 135 Monitor morning BMP Continue normal saline at 20 cc an hour #. Hyperglycemia, with no documented history of diabetes mellitus Glucose 102 Accu-Cheks every 6 hours Check hemoglobin A1c Chronic: #. History of paroxysmal atrial fibrillation Restart home Xarelto 20 mg p.o. with supper #. Hypothyroidism Restart home Synthroid 50 mcg daily #. Hyperlipidemia Restart Lipitor 40 mg at bedtime #. History of congestive heart failure Hold Lasix 40 mg daily, Aldactone 25 mg twice daily, Farxiga 10 mg daily given the MICHAEL Resume Entresto 1 tab twice daily #. Hypertension Resume metoprolol succinate 50 mg daily F: No restrictions E: Replete as needed N: Renal diet A: Ambulatory DVT prophylaxis: Home Xarelto 20 mg daily The patient is admitted with an anticipated more than 2 midnight stay for evaluation of altered mental status and acute kidney injury CODE STATUS: Full code Discussed with: Patient Anticipated discharge place: Home Past Medical History Past Medical History: Hyperlipidemia, Hypertension, Thyroid Disorder Additional Past Medical History / Comment(s): back pain, low T History of Any Multi-Drug Resistant Organisms: None Reported Past Surgical History: Back Surgery, Cholecystectomy Additional Past Surgical History / Comment(s): aorta valve replacement Past Anesthesia/Blood Transfusion Reactions: No Reported Reaction Past Psychological History: Depression Smoking Status: Never smoker Past Alcohol Use History: None Reported Past Drug Use History: None Reported - Past Family History Mother Family Medical History: Hyperlipidemia Medications and Allergies Home Medications Medication Instructions Recorded Confirmed Type ALPRAZolam [Xanax] 1 mg PO DAILY PRN 09/01/23 02/16/24 History Baclofen 10 mg PO HS PRN 09/01/23 02/16/24 History FLUoxetine HCL [PROzac] 40 mg PO DAILY 09/01/23 02/16/24 History HYDROcodone/APAP 10-325MG [[place] 1 tab PO BID PRN 09/01/23 02/16/24 History 10-325] Levothyroxine Sodium [Synthroid] 50 mcg PO DAILY 09/01/23 02/16/24 History Metoprolol Succinate (ER) [Toprol 50 mg PO DAILY 09/01/23 02/16/24 History XL] Pregabalin [Lyrica] 150 mg PO BID 09/01/23 02/16/24 History Rivaroxaban [Xarelto] 20 mg PO W/SUPPER 09/01/23 02/16/24 History Spironolactone [Aldactone] 25 mg PO BID 09/01/23 02/16/24 History fentaNYL 100MCG/HR PATCH 1 patch TRANSDERM Q72H 09/01/23 02/16/24 History [Duragesic 100MCG/HR] Atorvastatin [Lipitor] 40 mg PO HS #90 tablet 09/02/23 02/16/24 Rx Methylphenidate HCl 30 mg PO DAILY 01/16/24 02/16/24 History Dapagliflozin Propanediol [Farxiga] 10 mg PO DAILY #90 tab 01/18/24 02/16/24 Rx Furosemide [Lasix] 40 mg PO DAILY #90 tablet 01/18/24 02/16/24 Rx Calcium Carbonate [Calcium] 600 mg PO DAILY 02/16/24 02/16/24 History Clopidogrel [Plavix] 75 mg PO DAILY 02/16/24 02/16/24 History Docusate [Colace] 100 mg PO DAILY PRN 02/16/24 02/16/24 History Nitroglycerin Sl Tabs [Nitrostat] 0.4 mg SUBLINGUAL Q5M PRN 02/16/24 02/16/24 History Sacubitril/Valsartan [Entresto 24 1 tab PO BID 02/16/24 02/16/24 History mg-26 mg Tablet] Allergies Allergy/AdvReac Type Severity Reaction Status Date / Time No Known Allergies Allergy Verified 02/16/24 16:22 Physical Exam Vitals: Vital Signs Temp Pulse Resp BP Pulse Ox 02/16/24 20:09 87 18 130/100 97 02/16/24 18:31 98.4 F 63 19 122/98 96 02/16/24 17:03 87 72/59 02/16/24 16:20 98.2 F 70 20 92/48 98 Intake and Output 02/16/24 02/16/24 02/16/24 06:59 14:59 22:59 Other: Weight 114.305 kg Results CBC & Chem 7: 02/16/24 17:04 12/29/24 17:04 Labs: Abnormal Lab Results - Last 24 Hours (Table) 02/16/24 02/16/24 02/16/24 Range/Units 17:04 17:04 17:04 RBC 4.18 L (4.30-5.90) m/uL Plt Count 138 L (150-450) k/uL PT 12.7 H (10.0-12.5) sec INR 1.2 H (<1.2) Sodium 135 L (137-145) mmol/L BUN 46 H (9-20) mg/dL Creatinine 2.45 H (0.66-1.25) mg/dL Glucose 102 H (74-99) mg/dL Urine Opiates Screen (NotDetected) 02/16/24 Range/Units 17:41 RBC (4.30-5.90) m/uL Plt Count (150-450) k/uL PT (10.0-12.5) sec INR (<1.2) Sodium (137-145) mmol/L BUN (9-20) mg/dL Creatinine (0.66-1.25) mg/dL Glucose (74-99) mg/dL Urine Opiates Screen Detected H (NotDetected)
[2024-02-17] MEDS: LEVOTHYROXINE 50 MCG TAB PO SCH (05:29)
[2024-02-17] MEDS: CLOPIDOGREL 75 MG TAB PO SCH (08:23)
[2024-02-17] MEDS: METOPROLOL SUCCINATE (ER) 50 MG TAB.ER.24H PO SCH (08:23)
[2024-02-17] MEDS: SACUBITRIL/VALSARTAN 24 MG-26 MG TABLET PO SCH (08:23)
[2024-02-17 08:57] LABS: ALT 26 U/L (10-49); AST 24 U/L (14-35); Albumin 4.1 g/dL (3.8-4.9); Albumin/Globulin Ratio 2.05 Ratio (1.60-3.17); Alkaline Phosphatase 51 U/L (41-126); BUN/Creat Ratio 20.65 Ratio (12.00-20.00); Blood Urea Nitrogen 35.1 mg/dL (9.0-27.0); Calcium 9.7 mg/dL (8.7-10.3); Carbon Dioxide 23.8 mmol/L (21.6-31.8); Chloride 104 mmol/L (96-109); Glucose 94 mg/dL (70-110); Magnesium 2.3 mg/dL (1.5-2.4); Phosphorus 3.3 mg/dL (2.4-5.1); Sodium 139 mmol/L (135-145); Total Bilirubin 1.1 mg/dL (0.3-1.2); Total Protein 6.1 g/dL (6.2-8.2)
[2024-02-17 09:21] LABS: Basophils # (A) 0.07 X 10*3/uL (0.00-0.10); Eosinophils # (A) 0.32 X 10*3/uL (0.04-0.35); Eosinophils % (A) 4.6 %; HCT 38.4 % (39.6-50.0); HGB 12.8 g/dL (13.0-17.0); Lymphocytes # (A) 1.93 X 10*3/uL (0.90-5.00); Lymphocytes % (A) 27.8 %; MCH 32.1 pg (27.0-32.0); MCHC 33.3 g/dL (32.0-37.0); MCV 96.2 FL (80.0-97.0); Mean Platelet Volume 10.1 FL (9.5-12.2); Monocytes # (A) 0.82 X 10*3/uL (0.20-1.00); Monocytes % (A) 11.8 %; NRBC Per 100 WBC 0 X 10*3/uL (0.00-0.01); Neutrophils # (A) 3.78 X 10*3/uL (1.80-7.70); Neutrophils % (A) 54.4 %; Platelet Count 126 X 10*3/uL (140-440); RBC 3.99 X 10*6/uL (4.40-5.60); RDW 13.2 % (11.5-14.5); WBC 6.95 X 10*3/uL (4.50-10.00)
[2024-02-17 09:51] VITALS: BP 109/66; PULSE 60; RESP 18; TEMP 98.4
--- NOTE | 2024-02-17 09:52 | P.DS ---
Providers Date of admission: 02/16/24 18:36 Expected date of discharge: 02/17/24 Attending physician: Giovanni Ohara MD Consults: 02/16/24 18:35 Consult Physician Routine Consulting Provider: Rainer Mustafa Consult Reason/Comments: [email or web address] Do you want consulting provider notified?: Yes 02/17/24 05:14 Consult Physician Routine Consulting Provider: Jaime Vincent Consult Reason/Comments: L Upper extremity numbeness/tingling Do you want consulting provider notified?: Yes Primary care physician: [facility] Hospital Course: #. Altered mental status, likely secondary to dehydration #. Altered mental status, may be secondary to recent medication change #. L upper extremity paresthesias #. Acute kidney injury, likely secondary to dehydration #. Thrombocytopenia #. Mild hyponatremia #. Hyperglycemia, with no documented history of diabetes mellitus #. History of paroxysmal atrial fibrillation #. Hypothyroidism #. Hyperlipidemia #. History of congestive heart failure #. Hypertension Hospital Course: Patient is a 68-year-old male with hyperlipidemia, hypertension, history of bioprosthetic aortic valve replacement with moderate perivalvular regurgitation, systolic CHF (EF35-40% on Echo 01/16/24) history of dual-chamber pacemaker implantation and history of paroxysmal atrial fibrillation on Xarelto 20 mg daily presented to the emergency department for confusion/altered mental status for the past 3 days. Vitals on admission temperature 98.4, pulse rate 87, respiratory rate 18, blood pressure 130/100, O2 sat 97% on room air. EKG independently interpreted as electronic ventricular pacemaker rhythm with a ventricular rate of 99 bpm, QTc interval 452 ms. CXR shows no acute cardiopulmonary disease/process. CT of brain without contrast shows no acute intracranial process. Labs on admission show WBC 8.1, hemoglobin 13.5, hematocrit 39.7, platelets 138, PT 12.7, PTT 29.7, INR 1.2, sodium 135, potassium 4.5, chloride 101, carbon dioxide 23, BUN 46, creatinine 2.45, glucose 102, lactic acid 1.3, troponin less than 0.012. Urine toxicology shows positive for opiates. In the ED patient was treated with a 1 L bolus of normal saline. And his p.o. water intake was liberated. Repeat lab work showed improvement of MICHAEL, and patient's altered mental status resolved. Patient was discharged home with instructions to reduce the dose of Lasix and spironolactone at home. He should follow-up with nephrology, cardiology, PCP. Gen: In NAD, non-toxic HEENT: normocephalic, atraumatic, hearing acuity is intant, mucous membranes moist CVS: perfusing all extremities well, no pitting edema, Respiratory: symmetric chest expansion, no accessory muscle use, GI: soft, NTTP, ND, : no suprapubic tenderness, no CVA tenderness MSK/Derm: no rashes, cyanosis Neuro: CN II-XII intact, no motor weakness, Psych: cooperative, euthymic mood, judgment and insight is intact I spent 34 minutes coordinating this discharge Patient Condition at Discharge: Good Plan - Discharge Summary New Discharge Prescriptions: Continue Pregabalin [Lyrica] 150 mg PO BID fentaNYL 100MCG/HR PATCH [Duragesic 100MCG/HR] 1 patch TRANSDERM Q72H Metoprolol Succinate (ER) [Toprol XL] 50 mg PO DAILY Levothyroxine Sodium [Synthroid] 50 mcg PO DAILY HYDROcodone/APAP 10-325MG [[place] 10-325] 1 tab PO BID PRN PRN Reason: Pain Atorvastatin [Lipitor] 40 mg PO HS #90 tablet Clopidogrel [Plavix] 75 mg PO DAILY Docusate [Colace] 100 mg PO DAILY PRN PRN Reason: Constipation Nitroglycerin Sl Tabs [Nitrostat] 0.4 mg SUBLINGUAL Q5M PRN PRN Reason: Chest Pain Sacubitril/Valsartan [Entresto 24 mg-26 mg Tablet] 1 tab PO BID Rivaroxaban [Xarelto] 20 mg PO W/SUPPER FLUoxetine HCL [PROzac] 40 mg PO DAILY Methylphenidate HCl 30 mg PO DAILY Dapagliflozin Propanediol [Farxiga] 10 mg PO DAILY #90 tab Calcium Carbonate [Calcium] 600 mg PO DAILY Changed Spironolactone [Aldactone] 25 mg PO DAILY #0 Furosemide [Lasix] 20 mg PO DAILY #90 tablet Discontinued Baclofen 10 mg PO HS PRN PRN Reason: Muscle Spasm ALPRAZolam [Xanax] 1 mg PO DAILY PRN PRN Reason: Anxiety Discharge Medication List FLUoxetine HCL [PROzac] 40 mg PO DAILY 09/01/23 [History] HYDROcodone/APAP 10-325MG [[place] 10-325] 1 tab PO BID PRN 09/01/23 [History] Levothyroxine Sodium [Synthroid] 50 mcg PO DAILY 09/01/23 [History] Metoprolol Succinate (ER) [Toprol XL] 50 mg PO DAILY 09/01/23 [History] Pregabalin [Lyrica] 150 mg PO BID 09/01/23 [History] Rivaroxaban [Xarelto] 20 mg PO W/SUPPER 09/01/23 [History] fentaNYL 100MCG/HR PATCH [Duragesic 100MCG/HR] 1 patch TRANSDERM Q72H 09/01/23 [History] Atorvastatin [Lipitor] 40 mg PO HS #90 tablet 09/02/23 [Rx] Methylphenidate HCl 30 mg PO DAILY 01/16/24 [History] Dapagliflozin Propanediol [Farxiga] 10 mg PO DAILY #90 tab 01/18/24 [Rx] Calcium Carbonate [Calcium] 600 mg PO DAILY 02/16/24 [History] Clopidogrel [Plavix] 75 mg PO DAILY 02/16/24 [History] Docusate [Colace] 100 mg PO DAILY PRN 02/16/24 [History] Nitroglycerin Sl Tabs [Nitrostat] 0.4 mg SUBLINGUAL Q5M PRN 02/16/24 [History] Sacubitril/Valsartan [Entresto 24 mg-26 mg Tablet] 1 tab PO BID 02/16/24 [History] Furosemide [Lasix] 20 mg PO DAILY #90 tablet 02/17/24 [Rx] Spironolactone [Aldactone] 25 mg PO DAILY #0 02/17/24 [Rx] Follow up Appointment(s)/Referral(s): Colt Javier MD [STAFF PHYSICIAN] - 1 Week Katie Álvarez MD [Primary Care Provider] - 1-2 days Rainer Mustafa DO [STAFF PHYSICIAN] - 1 Week Discharge Disposition: HOME SELF-CARE
[2024-02-17] MEDS ORDERED: RIVAROXABAN 15 MG TAB PO SCH (17:30)
[2024-02-17] MEDS ORDERED: ATORVASTATIN 40 MG TAB PO SCH (21:00)
== END 2024-02-17 10:06 | disposition home or self-care (01) ==
LOC: EC 15:34 → 6NMEDSUR 18:36
PROVIDERS: ADMIT Internal Medicine; ATTEND Internal Medicine
DX: R41.82 Altered mental status, unspecified (principal); N17.9 Acute kidney failure, unspecified; E86.0 Dehydration; D69.6 Thrombocytopenia, unspecified; R20.2 Paresthesia of skin; R73.9 Hyperglycemia, unspecified; E78.5 Hyperlipidemia, unspecified; E03.9 Hypothyroidism, unspecified; E87.1 Hypo-osmolality and hyponatremia; Z79.01 Long term (current) use of anticoagulants; I11.0 Hypertensive heart disease with heart failure; I50.22 Chronic systolic (congestive) heart failure; I48.0 Paroxysmal atrial fibrillation; Z79.02 Long term (current) use of antithrombotics/antiplatelets; Z95.2 Presence of prosthetic heart valve; Z95.0 Presence of cardiac pacemaker; Z79.899 Other long term (current) drug therapy; Z79.890 Hormone replacement therapy
CPT/HCPCS: 96360; 96361; 99285; 36415; 93005; 80053 ×2; 82140; 83605; 83735 ×2; 84100 ×2; 84484; 85025 ×2; 85610; 85730; 80306; 83036; 87636; 71046; 70450; G0378 ×2; G0480; 80320

== ENCOUNTER 2024-03-08 12:31 | Inpatient (IN) | payer MEDICARE ==
[2024-03-08 13:31] LABS: Basophils # (A) 0.1 k/uL (0-0.2); Basophils % (A) 1 %; Eosinophils # (A) 0.2 k/uL (0-0.7); Eosinophils % (A) 2 %; HCT 38.1 % (39.0-53.0); HGB 13.3 gm/dL (13.0-17.5); Lymphocytes # (A) 1.9 k/uL (1.0-4.8); Lymphocytes % (A) 20 %; MCH 33.5 pg (25.0-35.0); MCHC 34.9 g/dL (31.0-37.0); MCV 96.1 fL (80.0-100.0); Monocytes # (A) 0.8 k/uL (0-1.0); Monocytes % (A) 8 %; Neutrophils % (A) 66 %; Platelet Count 168 k/uL (150-450); RBC 3.96 m/uL (4.30-5.90); RDW 13.5 % (11.5-15.5); WBC 9.1 k/uL (3.8-10.6)
[2024-03-08 13:39] LABS: INR 1.3 (<1.2); Partial Thromboplastin Time 30.6 sec (22.0-30.0); Prothrombin Time 13.7 sec (10.0-12.5)
[2024-03-08 13:45] LABS: ALT 35 U/L (4-49); AST 57 U/L (17-59); Acetaminophen <10.0 ug/mL; African American GFR (CKD) 20 (>60 ml/min/1.73 sqM); Alcohol <10 mg/dL; Alkaline Phosphatase 49 U/L (38-126); Anion Gap 12 mmol/L; Blood Urea Nitrogen 63 mg/dL (9-20); Calcium 9.8 mg/dL (8.4-10.2); Carbon Dioxide 20 mmol/L (22-30); Chloride 97 mmol/L (98-107); Glucose 84 mg/dL (74-99); Non-African American GFR(CKD) 17 (>60 ml/min/1.73 sqM); Potassium 4.8 mmol/L (3.5-5.1); Salicylate <1.0 mg/dL; Sodium 129 mmol/L (137-145); Total Bilirubin 1.2 mg/dL (0.2-1.3); Total Protein 6.2 g/dL (6.3-8.2)
[2024-03-08] MEDS: SODIUM CHLORIDE 0.9% 500 ML 500 ML IV ONE (13:55)
--- NOTE | 2024-03-08 15:00 | CT ---
EXAMINATION TYPE: CT brain wo con DATE OF EXAM: 03/08/2024 2:20 PM COMPARISON: None. CLINICAL INDICATION: Male, 68 years old with history of Altered mental status, AMS, weakness TECHNIQUE: Brain: Axial CT images of the brain were obtained with coronal and sagittal reformats created and rev iewed. Contrast used: None. Oral contrast used: None. CT DLP: 1227.4 mGycm, Automated exposure control for dose reduction was used. FINDINGS: Brain: Extra-axial spaces: No abnormal extra-axial fluid collections. Ventricular system: Within normal limits Cerebral parenchyma: No acute intraparenchymal hemorrhage or mass effect. The khan-white junction is well differentiated. Cerebellum: Unremarkable. Mass effect: No evidence of midline shift. Intracranial vasculature: Atherosclerotic calcifications of the intracranial vessels. Soft tissues: Normal. Calvarium/osseous structures: No depressed skull fracture. Paranasal sinuses and mastoid air cells: Mild scattered paranasal sinus disease. Visualized orbits: Orbital contents are intact. IMPRESSION: No acute intracranial process. [facility], , 03/08/2024 2:57 PM
--- NOTE | 2024-03-08 15:01 | XR ---
EXAMINATION TYPE: XR chest 2V DATE OF EXAM: 03/08/2024 2:19 PM COMPARISON: Chest radiographs from 02/16/2024 CLINICAL INDICATION: Male, 68 years old with history of altered mental status; [facility] TECHNIQUE: XR chest 2V Frontal and lateral views of the chest. FINDINGS: Lungs/Pleura: There is no evidence of pleural effusion, focal consolidation, or pneumothorax. Pulmonary vascularity: Unremarkable. Heart/mediastinum: Cardiomediastinal silhouette is enlarged and stable. Two lead cardiac conduction d evice overlying the left hemithorax with lead tips projecting over the right ventricle and right atri um. Musculoskeletal: No acute osseous pathology. Midline sternotomy wires are noted. IMPRESSION: No acute cardiopulmonary disease/process. [facility], , 03/08/2024 2:59 PM
[2024-03-08] MEDS: SODIUM CHLORIDE 0.9% 1,000 ML IV ONE (15:37)
[2024-03-08] MEDS ORDERED: NALOXONE 0.4 MG/ML 1 ML VIAL IV PRN (16:13)
--- NOTE | 2024-03-08 16:13 | ED ---
Altered Mental Status HPI - General Chief Complaint: Altered Mental Status Stated Complaint: AMS Time Seen by Provider: 03/08/24 12:45 Source: patient Mode of arrival: wheelchair Limitations: no limitations - History of Present Illness Initial Comments: 68-year-old male with past medical history of congestive heart failure, hypertension, hyperlipidemia who presents to the emergency department with altered mental status. is at bedside and provides a history. States that the patient has been more confused over the past couple of days. She states that he is extremely sleepy. He went to the store and fell asleep in the aisle. states that this has happened to him a couple of times in the past. Patient has had several medication changes and she thinks it may be due to this. Patient is currently on metoprolol, Entresto, Lasix 20 mg once daily and spironolactone for blood pressure control. Patient has no complaints at this time. He states that his is overreacting and he did not want to come in. No report of any fevers. No falls. Patient denies any chest pain or shortness of breath. He does admit to lower extremity swelling. Patient does have history of resting tremor which they state is more pronounced. No lateralizing weakness. Patient is on antiplatelets and anticoagulants. No other alleviating, precipitating or modifying factors - Related Data Home Medications Medication Instructions Recorded Confirmed FLUoxetine HCL [PROzac] 40 mg PO DAILY 09/01/23 02/16/24 HYDROcodone/APAP 10-325MG [[place] 1 tab PO BID PRN 09/01/23 02/16/24 10-325] Levothyroxine Sodium [Synthroid] 50 mcg PO DAILY 09/01/23 02/16/24 Metoprolol Succinate (ER) [Toprol 50 mg PO DAILY 09/01/23 02/16/24 XL] Pregabalin [Lyrica] 150 mg PO BID 09/01/23 02/16/24 Rivaroxaban [Xarelto] 20 mg PO W/SUPPER 09/01/23 02/16/24 fentaNYL 100MCG/HR PATCH 1 patch TRANSDERM Q72H 09/01/23 02/16/24 [Duragesic 100MCG/HR] Methylphenidate HCl 30 mg PO DAILY 01/16/24 02/16/24 Calcium Carbonate [Calcium] 600 mg PO DAILY 02/16/24 02/16/24 Clopidogrel [Plavix] 75 mg PO DAILY 02/16/24 02/16/24 Docusate [Colace] 100 mg PO DAILY PRN 02/16/24 02/16/24 Nitroglycerin Sl Tabs [Nitrostat] 0.4 mg SUBLINGUAL Q5M PRN 02/16/24 02/16/24 Sacubitril/Valsartan [Entresto 24 1 tab PO BID 02/16/24 02/16/24 mg-26 mg Tablet] Previous Rx's Medication Instructions Recorded Atorvastatin [Lipitor] 40 mg PO HS #90 tablet 09/02/23 Dapagliflozin Propanediol [Farxiga] 10 mg PO DAILY #90 tab 01/18/24 Furosemide [Lasix] 20 mg PO DAILY #90 tablet 02/17/24 Spironolactone [Aldactone] 25 mg PO DAILY #0 02/17/24 Allergies Allergy/AdvReac Type Severity Reaction Status Date / Time No Known Allergies Allergy Verified 03/08/24 16:11 Review of Systems ROS Statement: Those systems with pertinent positive or pertinent negative responses have been documented in the HPI. ROS Other: All systems not noted in ROS Statement are negative. Past Medical History Past Medical History: Hyperlipidemia, Hypertension, Thyroid Disorder Additional Past Medical History / Comment(s): back pain, low T History of Any Multi-Drug Resistant Organisms: None Reported Past Surgical History: Back Surgery, Cholecystectomy Additional Past Surgical History / Comment(s): aorta valve replacement Past Anesthesia/Blood Transfusion Reactions: No Reported Reaction Past Psychological History: Depression Smoking Status: Never smoker Past Alcohol Use History: None Reported Past Drug Use History: None Reported - Past Family History Mother Family Medical History: Hyperlipidemia General Exam Limitations: no limitations General appearance: alert, in no apparent distress, other (Resting tremor bilateral upper extremities) Head exam: Present: atraumatic, normocephalic, normal inspection Eye exam: Present: normal appearance, PERRL, EOMI. Absent: scleral icterus, conjunctival injection, periorbital swelling ENT exam: Present: normal exam, mucous membranes moist Neck exam: Present: normal inspection. Absent: tenderness, meningismus, lymphadenopathy Respiratory exam: Present: normal lung sounds bilaterally. Absent: respiratory distress, wheezes, rales, rhonchi, stridor Cardiovascular Exam: Present: regular rate, normal rhythm, normal heart sounds. Absent: systolic murmur, diastolic murmur, rubs, gallop, clicks GI/Abdominal exam: Present: soft, normal bowel sounds. Absent: distended, tenderness, guarding, rebound, rigid Extremities exam: Present: normal inspection, full ROM, normal capillary refill. Absent: tenderness, pedal edema, joint swelling, calf tenderness Back exam: Present: normal inspection Neurological exam: Present: alert, oriented X3, CN II-XII intact Psychiatric exam: Present: normal affect, normal mood Skin exam: Present: warm, dry, intact, normal color. Absent: rash Course Vital Signs 03/08/24 03/08/24 03/08/24 12:41 12:53 13:00 Temperature 98 F Pulse Rate 76 80 70 Respiratory 18 18 18 Rate Blood Pressure 75/41 90/71 90/71 O2 Sat by Pulse 97 95 97 Oximetry 03/08/24 03/08/24 03/08/24 13:30 14:00 14:30 Temperature Pulse Rate 80 74 Respiratory 18 18 18 Rate Blood Pressure 78/57 74/58 72/55 O2 Sat by Pulse 97 Oximetry 03/08/24 03/08/24 03/08/24 15:00 15:30 15:50 Temperature Pulse Rate 68 78 71 Respiratory 18 18 16 Rate Blood Pressure 85/61 78/57 113/90 O2 Sat by Pulse 97 95 97 Oximetry Medical Decision Making - Medical Decision Making Was pt. sent in by a medical professional or institution ([facility], [facility], urgent care, hospital, or correction...) When possible be specific @ -[No] Did you speak to anyone other than the patient for history (EMS, parent, family, police, friend...)? What history was obtained from this source @ -[No] Did you review nursing and triage notes (agree or disagree)? Why? @ -[I reviewed and agree with nursing and triage notes] Were old charts reviewed (outside hosp., previous admission, EMS record, old EKG, old radiological studies, urgent care reports/EKG's, correction records)? Report findings @ -[No old charts were reviewed] Differential Diagnosis (chest pain, altered mental status, abdominal pain women, abdominal pain men, vaginal bleeding, weakness, fever, dyspnea, syncope, headache, dizziness, GI bleed, back pain, seizure, CVA, palpatations, mental health, musculoskeletal)? @ -[not applicable] EKG interpreted by me (3pts min.). @ -Yes and demonstrates a flutter with rate of 80. QRS 110. QTc of 414. Some PVCs. No acute ST segment elevation X-rays interpreted by me (1pt min.). @ -[None done] CT interpreted by me (1pt min.). @ -[None done] U/S interpreted by me (1pt. min.). @ -[None done] What testing was considered but not performed or refused? (CT, X-rays, U/S, l abs)? Why? @ -[None] What meds were considered but not given or refused? Why? @ -[None] Did you discuss the management of the patient with other professionals (professionals i.e. , PA, [facility], lab, RT, psych nurse, hospital social worker, semiconductor processor, teacher, chief security and safety officer, case management associate)? Give summary @ -[No] Was smoking cessation discussed for >3mins.? @ -[No] Was critical care preformed (if so, how long)? @ -[No] Were there social determinants of health that impacted care today? How? (Homelessness, low income, unemployed, alcoholism, drug addiction, transportation, low edu. Level, literacy, decrease access to med. care, [place] [facility], rehab)? @ -[No] Was there de-escalation of care discussed even if they declined (Discuss DNR or withdrawal of care, Hospice)? DNR status @ -[No] What co-morbidities impacted this encounter? (DM, HTN, Smoking, COPD, CAD, Cancer, CVA, ARF, Chemo, Hep., AIDS, mental health diagnosis, sleep apnea, morbid obesity)? @ -[None] Was patient admitted / discharged? Hospital course, mention meds given and route, prescriptions, significant lab abnormalities, going to OR and other pertinent info. @ -[hospital course] Undiagnosed new problem with uncertain prognosis? @ -[No] Drug Therapy requiring intensive monitoring for toxicity (Heparin, Nitro, Insulin, Cardizem)? @ -[No] Were any procedures done? @ -[No] Diagnosis/symptom? @ -[default] Acute, or Chronic, or Acute on Chronic? @ -[default] Uncomplicated (without systemic symptoms) or Complicated (systemic symptoms)? @ -[default] Side effects of treatment? @ -[No] Exacerbation, Progression, or Severe Exacerbation? @ -[No] Poses a threat to life or bodily function? How? (Chest pain, USA, AR, pneumonia, PE, COPD, DKA, ARF, appy, cholecystitis, CVA, Diverticulitis, Homicidal, Suicidal, threat to staff... and all critical care pts) @ -[No] - Lab Data Result diagrams: 03/08/24 13:23 03/08/24 13:23 Lab Results 03/08/24 03/08/24 03/08/24 Range/Units 13:23 13:23 13:23 WBC 9.1 (3.8-10.6) k/uL RBC 3.96 L (4.30-5.90) m/uL Hgb 13.3 (13.0-17.5) gm/dL Hct 38.1 L (39.0-53.0) % MCV 96.1 (80.0-100.0) fL MCH 33.5 (25.0-35.0) pg MCHC 34.9 (31.0-37.0) g/dL RDW 13.5 (11.5-15.5) % Plt Count 168 (150-450) k/uL MPV 7.0 Neutrophils % 66 % Lymphocytes % 20 % Monocytes % 8 % Eosinophils % 2 % Basophils % 1 % Neutrophils # 6.0 (1.3-7.7) k/uL Lymphocytes # 1.9 (1.0-4.8) k/uL Monocytes # 0.8 (0-1.0) k/uL Eosinophils # 0.2 (0-0.7) k/uL Basophils # 0.1 (0-0.2) k/uL PT 13.7 H (10.0-12.5) sec INR 1.3 H (<1.2) APTT 30.6 H (22.0-30.0) sec Sodium 129 L (137-145) mmol/L Potassium 4.8 (3.5-5.1) mmol/L Chloride 97 L (98-107) mmol/L Carbon Dioxide 20 L (22-30) mmol/L Anion Gap 12 mmol/L BUN 63 H (9-20) mg/dL Creatinine 3.52 H (0.66-1.25) mg/dL Est GFR (CKD-EPI)AfAm 20 (>60 ml/min/1.73 sqM) Est GFR (CKD-EPI)NonAf 17 (>60 ml/min/1.73 sqM) Glucose 84 (74-99) mg/dL Calcium 9.8 (8.4-10.2) mg/dL Total Bilirubin 1.2 (0.2-1.3) mg/dL AST 57 (17-59) U/L ALT 35 (4-49) U/L Alkaline Phosphatase 49 (38-126) U/L Ammonia (<30) umol/L Troponin I (0.000-0.034) ng/mL Total Protein 6.2 L (6.3-8.2) g/dL Albumin 4.0 (3.5-5.0) g/dL TSH 2.850 (0.465-4.680) mIU/L Salicylates <1.0 mg/dL Acetaminophen <10.0 ug/mL Serum Alcohol <10 mg/dL 03/08/24 03/08/24 Range/Units 13:23 13:23 WBC (3.8-10.6) k/uL RBC (4.30-5.90) m/uL Hgb (13.0-17.5) gm/dL Hct (39.0-53.0) % MCV (80.0-100.0) fL MCH (25.0-35.0) pg MCHC (31.0-37.0) g/dL RDW (11.5-15.5) % Plt Count (150-450) k/uL MPV Neutrophils % % Lymphocytes % % Monocytes % % Eosinophils % % Basophils % % Neutrophils # (1.3-7.7) k/uL Lymphocytes # (1.0-4.8) k/uL Monocytes # (0-1.0) k/uL Eosinophils # (0-0.7) k/uL Basophils # (0-0.2) k/uL PT (10.0-12.5) sec INR (<1.2) APTT (22.0-30.0) sec Sodium (137-145) mmol/L Potassium (3.5-5.1) mmol/L Chloride (98-107) mmol/L Carbon Dioxide (22-30) mmol/L Anion Gap mmol/L BUN (9-20) mg/dL Creatinine (0.66-1.25) mg/dL Est GFR (CKD-EPI)AfAm (>60 ml/min/1.73 sqM) Est GFR (CKD-EPI)NonAf (>60 ml/min/1.73 sqM) Glucose (74-99) mg/dL Calcium (8.4-10.2) mg/dL Total Bilirubin (0.2-1.3) mg/dL AST (17-59) U/L ALT (4-49) U/L Alkaline Phosphatase (38-126) U/L Ammonia 23 (<30) umol/L Troponin I 0.041 H* (0.000-0.034) ng/mL Total Protein (6.3-8.2) g/dL Albumin (3.5-5.0) g/dL TSH (0.465-4.680) mIU/L Salicylates mg/dL Acetaminophen ug/mL Serum Alcohol mg/dL Disposition Clinical Impression: MICHAEL (acute kidney injury), Dehydration, Acute encephalopathy Disposition: ADMITTED IP TO THIS [facility] Condition: Stable Is patient prescribed a controlled substance at d/c from ED?: No Referrals: Katie Álvarez MD [Primary Care Provider] - 1-2 days Time of Disposition: 16:12 Decision to Admit Reason: Admit from EC Decision Date: 03/08/24 Decision Time: 16:13
--- NOTE | 2024-03-08 17:13 | P.HPIM ---
History of Present Illness H&P Date: 03/08/24 Patient is a 68-year-old male with history of CAD status post stent, bioprosthetic aortic valve, systolic heart failure with EF 35 to 40%, pacemaker, chronic atrial fibrillation, CKD stage II-III, hypertension, dyslipidemia presenting with altered mentation and weakness. He claims that he has been feeling unwell for the last 2 to 3 days. He has been taking his own medications, normally has sorts of his medications. He is not sure if he was taking extra Lasix or not. He denies any chest pain, shortness of breath, orthopnea, PND, abdominal pain, nausea, vomiting, urinary complaints. He denies any fevers or chills. Denies any smoking or alcohol use. His last bowel movement was 1 week ago. In the ED, temperature was 98, pulse 76, respiratory rate 18, blood pressure 75/41, saturating 97% on room air. WBC 9.1, hemoglobin 13.3, APTT 30.6, INR 1.3, sodium 129, bicarb 20, anion gap 12, creatinine 3.52, ammonia 23, troponin 0.041, TSH 2.85, salicylates, Tylenol, alcohol level negative. CT head did not show any acute process. Chest x-ray independently interpreted did not show any opacities. EKG independently interpreted, shows coarse atrial fibrillation/flutter with occasional paced rhythm. In the ER, patient was given 1.5 L of normal saline with improvement in blood pressure. He is admitted for further workup for hypotension, weakness, acute encephalopathy. Cardiology also consulted. Pertinent positives and negatives as discussed in HPI, a complete review of systems was performed and all other systems are negative. Patient seen and examined at bedside. Vital signs reviewed General: nontoxic, no distress, appears at stated age, obese Derm: warm, dry Head: atraumatic, normocephalic, symmetric Eyes: EOMI, no lid lag, anicteric sclera, pupils equal round reactive to light ENT: Nose and ears atraumatic Neck: No thyromegaly, supple Mouth: no lip lesion, mucus membranes moist Cardiovascular: S1S2 irregular, systolic murmur, 2+ pitting edema edema Lungs: clear to auscultation bilateral, no rhonchi, no rales, no wheeze, no accessory muscle use Abdominal: soft, nontender to palpation, no guarding, no appreciable organomegaly Ext: no gross muscle atrophy, muscle strength muscle strength 5 out of 5 in all 4 extremities, no contractures Neuro: CN II-XII grossly intact Psych: Alert, oriented, appropriate affect Assessment/Plan: Active: Acute hypotension, likely medication induced Prerenal acute kidney injury on CKD stage II-III NSTEMI, likely type II Acute encephalopathy, likely metabolic, resolved Hypovolemic hyponatremia HFrEF 35 to 40%, not in exacerbation Valvular heart disease, status post bioprosthetic aortic valve Chronic persistent atrial fibrillation -Hold Lasix, Entresto, Aldactone, Farxiga, Lyrica -continue metoprolol 50 daily for now -Telemetry monitoring -Renal ultrasound -Bladder scan pending -Urinalysis and urine drug screen pending -Blood cultures and lactic acid also pending -Cardiology consulted, pending recommendations -Trend troponin Constipation -Likely opioid induced -Started on senna 8.6 twice daily Chronic: History of CAD Dyslipidemia Hypothyroidism Status post pacemaker Depression ADHD Chronic back pain The patient is admitted with an anticipated greater than 2 midnight stay as inpatient status for evaluation of hypotension. Surrogate decision-maker: CODE STATUS: Full code DVT prophylaxis: Xarelto Anticipated discharge date: Pending clinical course Anticipated discharge place: Pending clinical course A total of 65 minutes was spent on the care of this complex patient more than 50% of the time was spent in counseling and care coordination. Past Medical History Past Medical History: Hyperlipidemia, Hypertension, Thyroid Disorder Additional Past Medical History / Comment(s): back pain, low T History of Any Multi-Drug Resistant Organisms: None Reported Past Surgical History: Back Surgery, Cholecystectomy Additional Past Surgical History / Comment(s): aorta valve replacement Past Anesthesia/Blood Transfusion Reactions: No Reported Reaction Past Psychological History: Depression Smoking Status: Never smoker Past Alcohol Use History: None Reported Past Drug Use History: None Reported - Past Family History Mother Family Medical History: Hyperlipidemia Medications and Allergies Home Medications Medication Instructions Recorded Confirmed Type FLUoxetine HCL [PROzac] 40 mg PO HS 09/01/23 03/08/24 History HYDROcodone/APAP 10-325MG [[place] 1 tab PO BID PRN 09/01/23 03/08/24 History 10-325] Levothyroxine Sodium [Synthroid] 50 mcg PO DAILY 09/01/23 03/08/24 History Metoprolol Succinate (ER) [Toprol 50 mg PO DAILY 09/01/23 03/08/24 History XL] Pregabalin [Lyrica] 150 mg PO BID 09/01/23 03/08/24 History Rivaroxaban [Xarelto] 20 mg PO W/SUPPER 09/01/23 03/08/24 History fentaNYL 100MCG/HR PATCH 1 patch TRANSDERM Q72H 09/01/23 03/08/24 History [Duragesic 100MCG/HR] Atorvastatin [Lipitor] 40 mg PO HS #90 tablet 09/02/23 03/08/24 Rx Methylphenidate HCl 30 mg PO DAILY 01/16/24 03/08/24 History Dapagliflozin Propanediol [Farxiga] 10 mg PO DAILY #90 tab 01/18/24 03/08/24 Rx Clopidogrel [Plavix] 75 mg PO DAILY 02/16/24 03/08/24 History Nitroglycerin Sl Tabs [Nitrostat] 0.4 mg SUBLINGUAL Q5M PRN 02/16/24 03/08/24 History Sacubitril/Valsartan [Entresto 24 1 tab PO BID 02/16/24 03/08/24 History mg-26 mg Tablet] Spironolactone [Aldactone] 25 mg PO DAILY #0 02/17/24 03/08/24 Rx Furosemide [Lasix] 20 mg PO BID 03/08/24 03/08/24 History Allergies Allergy/AdvReac Type Severity Reaction Status Date / Time No Known Allergies Allergy Verified 03/08/24 16:11 Physical Exam Vitals: Vital Signs Temp Pulse Resp BP Pulse Ox 03/08/24 15:50 71 16 113/90 97 03/08/24 15:30 78 18 78/57 95 03/08/24 15:00 68 18 85/61 97 03/08/24 14:30 74 18 72/55 97 03/08/24 14:00 80 18 74/58 03/08/24 13:30 18 78/57 03/08/24 13:00 70 18 90/71 97 03/08/24 12:53 80 18 90/71 95 03/08/24 12:41 98 F 76 18 75/41 97 Intake and Output 03/08/24 03/08/24 03/08/24 06:59 14:59 22:59 Other: Weight 112.491 kg Results CBC & Chem 7: 03/08/24 13:23 03/08/24 13:23 Labs: Abnormal Lab Results - Last 24 Hours (Table) 03/08/24 03/08/24 03/08/24 Range/Units 13:23 13:23 13:23 RBC 3.96 L (4.30-5.90) m/uL Hct 38.1 L (39.0-53.0) % PT 13.7 H (10.0-12.5) sec INR 1.3 H (<1.2) APTT 30.6 H (22.0-30.0) sec Sodium 129 L (137-145) mmol/L Chloride 97 L (98-107) mmol/L Carbon Dioxide 20 L (22-30) mmol/L BUN 63 H (9-20) mg/dL Creatinine 3.52 H (0.66-1.25) mg/dL Troponin I (0.000-0.034) ng/mL Total Protein 6.2 L (6.3-8.2) g/dL 03/08/24 Range/Units 13:23 RBC (4.30-5.90) m/uL Hct (39.0-53.0) % PT (10.0-12.5) sec INR (<1.2) APTT (22.0-30.0) sec Sodium (137-145) mmol/L Chloride (98-107) mmol/L Carbon Dioxide (22-30) mmol/L BUN (9-20) mg/dL Creatinine (0.66-1.25) mg/dL Troponin I 0.041 H* (0.000-0.034) ng/mL Total Protein (6.3-8.2) g/dL
[2024-03-08 17:17] LABS: Appearance,Urine Clear (Clear); Bilirubin,Urine Negative (Negative); Blood,Urine Small (Negative); Color,Urine Colorless; Glucose,Urine (UA) Negative (Negative); Ketones,Urine Negative (Negative); Leukocyte Esterase,Urine Negative (Negative); Mucus,Urine Rare /hpf; Nitrite,Urine Negative (Negative); Protein,Urine Negative (Negative); RBC,Urine <1 /hpf (0-5); Specific Gravity,Urine 1.006 (1.001-1.035); Squamous Epithelial Cell,Urine <1 /hpf (0-4); Urobilinogen,Urine <2.0 mg/dL (<2.0); WBC,Urine 1 /hpf (0-5)
[2024-03-08 17:30] LABS: Amphetamine Screen,Urine Not Detected (NotDetected); Barbiturate Screen,Urine Not Detected (NotDetected); Benzodiazepines Screen,Urine Not Detected (NotDetected); Cocaine Screen,Urine Not Detected (NotDetected); Methadone Screen, Urine Not Detected (NotDetected); Opiate Screen,Urine Detected (NotDetected); Oxycodone Screen, Urine Not Detected (NotDetected); Phencyclidine Screen,Urine Not Detected (NotDetected); Tricyclic Antidepressant,Urine Not Detected (NotDetected); Urn Cannabinoid Scrn Detected (NotDetected)
[2024-03-08] MEDS: RIVAROXABAN 15 MG TAB PO SCH (17:43)
[2024-03-08] MEDS: SENNOSIDES 8.6 MG TAB PO SCH (20:49)
[2024-03-08] MEDS: ATORVASTATIN 40 MG TAB PO SCH (20:49)
[2024-03-08] MEDS: FLUoxetine HCL 20 MG CAP PO SCH (20:50)
[2024-03-09] MEDS: LEVOTHYROXINE 50 MCG TAB PO SCH (06:22)
[2024-03-09 07:46] LABS: Basophils # (A) 0.1 k/uL (0-0.2); Basophils % (A) 1 %; Eosinophils # (A) 0.2 k/uL (0-0.7); Eosinophils % (A) 5 %; HCT 37.3 % (39.0-53.0); HGB 12.4 gm/dL (13.0-17.5); Lymphocytes # (A) 1.5 k/uL (1.0-4.8); Lymphocytes % (A) 29 %; MCHC 33.1 g/dL (31.0-37.0); MCV 96.7 fL (80.0-100.0); Mean Platelet Volume 7.9; Monocytes # (A) 0.5 k/uL (0-1.0); Monocytes % (A) 9 %; Neutrophils # (A) 2.7 k/uL (1.3-7.7); Neutrophils % (A) 54 %; Platelet Count 138 k/uL (150-450); RBC 3.86 m/uL (4.30-5.90); RDW 13.8 % (11.5-15.5); WBC 5.1 k/uL (3.8-10.6)
[2024-03-09 08:05] LABS: African American GFR (CKD) 38 (>60 ml/min/1.73 sqM); Anion Gap 9 mmol/L; Blood Urea Nitrogen 52 mg/dL (9-20); Calcium 9.6 mg/dL (8.4-10.2); Carbon Dioxide 23 mmol/L (22-30); Chloride 105 mmol/L (98-107); Glucose 83 mg/dL (74-99); Non-African American GFR(CKD) 33 (>60 ml/min/1.73 sqM); Potassium 3.7 mmol/L (3.5-5.1); Sodium 137 mmol/L (137-145)
[2024-03-09] MEDS: METHYLPHENIDATE HCL 10 MG TAB PO SCH (09:18)
[2024-03-09] MEDS: CLOPIDOGREL 75 MG TAB PO SCH (09:18)
[2024-03-09 09:19] VITALS: RESP 18
[2024-03-09] MEDS: METOPROLOL SUCCINATE (ER) 50 MG TAB.ER.24H PO SCH (09:19)
--- NOTE | 2024-03-09 13:45 | P.CRDCN ---
History of Present Illness History of present illness: HISTORY OF PRESENT ILLNESS: This is a 68-year-old male with a past medical history significant for coronary artery disease with previous stenting, aortic valve replacement, pacemaker impl antation, hypertension, hyperlipidemia, and persistent atrial fibrillation. Patient follows with a e commerce solution architect, Dr. Hilario. We have been asked to see the patient in consultation for MICHAEL and heart failure history. Patient examined at the bedside in the emergency room. The patient states that he came to the hospital because he was confused. He states that he was having trouble standing and walking. He believes that he may be dehydrated. He denies any chest pain. He denies any shortness of breath. Patient was found to have acute kidney injury with a creatinine of 3.51 on admission with a previous creatinine of 1.7 in January 2024. DIAGNOSTICS: - EKG reveals atrial fibrillation/flutter with PVCs - Chest xray negative for acute process - Laboratory data: - Current home cardiac medications include Farxiga 10 mg daily, Lipitor 40 mg daily, Plavix 25 mg daily, Lasix 20 mg twice a day, metoprolol succinate 50 mg daily, Xarelto 20 mg with dinner, Entresto 24-26 mg twice a day, Aldactone 25 mg daily - Most recent echocardiogram obtained in December 2023 revealed ejection fraction 35 to 40%, bioprosthetic aortic valve without stenosis with peak gradient 10 mmHg and mean gradient 5.1 mmHg, moderate perivalvular regurgitation, moderate tricuspid regurgitation, no evidence of pulmonary hypertension, moderate to severe mitral regurgitation, and moderate global hypokinesis of left ventricle - Cardiac catheterization history: Unknown REVIEW OF SYSTEMS: At the time of my exam: CONSTITUTIONAL: Denies fever or chills. HEENT: Denies blurred vision, vision changes, or eye pain. Denies hemoptysis CARDIOVASCULAR: Denies chest pain. Denies orthopnea. Denies PND. Denies palpitations RESPIRATORY: Denies shortness of breath. GASTROINTESTINAL: Denies abdominal pain. Denies nausea or vomiting. HEMATOLOGIC: Denies bleeding disorders. GENITOURINARY: Denies any blood in urine. SKIN: Denies pruitis. Denies rash. PHYSICAL EXAM: VITAL SIGNS: Reviewed. GENERAL: Well-developed in no acute distress. HEENT: Head is normocephalic. Pupils are equal, round. Sclerae anicteric. Mucous membranes of the mouth are moist. Neck supple. No JVD or thyromegaly LUNGS: Respirations even and unlabored. Lungs essentially clear to auscultation bilaterally. HEART: Paced rhythm. Regular rate and rhythm. S1 and S2 heard. Systolic and diastolic murmur noted. ABDOMEN: Soft. Nondistended. Nontender. EXTREMITIES: Normal range of motion. No clubbing or cyanosis. Peripheral pulses intact. No lower extremity edema NEUROLOGIC: Awake and alert. Oriented x 3. ASSESSMENT: Generalized weakness Acute on chronic kidney disease Coronary artery disease with previous stenting Ischemic cardiomyopathy, 35 to 40% Chronic congestive heart failure with reduced EF, currently not volume overloaded 1 isolated minimally elevated troponin, secondary to poor renal clearance, no evidence of myocardial injury or ischemia History of aortic valve replacement History of pacemaker implantation Persistent atrial fibrillation Hypertension Hyperlipidemia History of pacemaker implantation PLAN: An acute coronary event has been ruled out Obtain 2D echo to assess cardiac structure and function Hold nephrotoxic agents Hold diuretics Monitor kidney function Further recommendations pending patient course Nurse practitioner note has been reviewed by physician. Signing provider agrees with the documented findings, assessment, and plan of care documented by [employer] LIA[employer] SPECIAL STAFF as a scribe. Past Medical History Past Medical History: Hyperlipidemia, Hypertension, Thyroid Disorder Additional Past Medical History / Comment(s): back pain, low T History of Any Multi-Drug Resistant Organisms: None Reported Past Surgical History: Back Surgery, Cholecystectomy Additional Past Surgical History / Comment(s): aorta valve replacement Past Anesthesia/Blood Transfusion Reactions: No Reported Reaction Past Psychological History: Depression Smoking Status: Never smoker Past Alcohol Use History: None Reported Past Drug Use History: None Reported - Past Family History Mother Family Medical History: Hyperlipidemia Medications and Allergies Home Medications Medication Instructions Recorded Confirmed Type FLUoxetine HCL [PROzac] 40 mg PO HS 09/01/23 03/08/24 History HYDROcodone/APAP 10-325MG [[place] 1 tab PO BID PRN 09/01/23 03/08/24 History 10-325] Levothyroxine Sodium [Synthroid] 50 mcg PO DAILY 09/01/23 03/08/24 History Metoprolol Succinate (ER) [Toprol 50 mg PO DAILY 09/01/23 03/08/24 History XL] Pregabalin [Lyrica] 150 mg PO BID 09/01/23 03/08/24 History Rivaroxaban [Xarelto] 20 mg PO W/SUPPER 09/01/23 03/08/24 History fentaNYL 100MCG/HR PATCH 1 patch TRANSDERM Q72H 09/01/23 03/08/24 History [Duragesic 100MCG/HR] Atorvastatin [Lipitor] 40 mg PO HS #90 tablet 09/02/23 03/08/24 Rx Methylphenidate HCl 30 mg PO DAILY 01/16/24 03/08/24 History Dapagliflozin Propanediol [Farxiga] 10 mg PO DAILY #90 tab 01/18/24 03/08/24 Rx Clopidogrel [Plavix] 75 mg PO DAILY 02/16/24 03/08/24 History Nitroglycerin Sl Tabs [Nitrostat] 0.4 mg SUBLINGUAL Q5M PRN 02/16/24 03/08/24 History Sacubitril/Valsartan [Entresto 24 1 tab PO BID 02/16/24 03/08/24 History mg-26 mg Tablet] Spironolactone [Aldactone] 25 mg PO DAILY #0 02/17/24 03/08/24 Rx Furosemide [Lasix] 20 mg PO BID 03/08/24 03/08/24 History Allergies Allergy/AdvReac Type Severity Reaction Status Date / Time No Known Allergies Allergy Verified 03/08/24 16:11 Physical Exam Vitals: Vital Signs Temp Pulse Resp BP Pulse Ox 03/09/24 06:19 86 17 90/71 94 L 03/09/24 02:24 71 16 100/54 95 03/09/24 00:27 77 16 106/50 98 03/08/24 20:16 70 16 93/78 96 03/08/24 15:50 71 16 113/90 97 03/08/24 15:30 78 18 78/57 95 03/08/24 15:00 68 18 85/61 97 03/08/24 14:30 74 18 72/55 97 03/08/24 14:00 80 18 74/58 03/08/24 13:30 18 78/57 03/08/24 13:00 70 18 90/71 97 03/08/24 12:53 80 18 90/71 95 03/08/24 12:41 98 F 76 18 75/41 97 Intake and Output 03/08/24 03/09/24 03/09/24 22:59 06:59 14:59 Output Total 35 Balance -35 Output: Post Void Residual 35 Results 03/09/24 07:16 03/09/24 07:16 Cardiac Enzymes 03/08/24 03/08/24 03/08/24 Range/Units 13:23 13:23 18:16 AST 57 (17-59) U/L Troponin I 0.041 H* 0.033 (0.000-0.034) ng/mL Coagulation 03/08/24 Range/Units 13:23 PT 13.7 H (10.0-12.5) sec APTT 30.6 H (22.0-30.0) sec CBC 03/08/24 03/09/24 Range/Units 13:23 07:16 WBC 9.1 5.1 (3.8-10.6) k/uL RBC 3.96 L 3.86 L (4.30-5.90) m/uL Hgb 13.3 12.4 L (13.0-17.5) gm/dL Hct 38.1 L 37.3 L (39.0-53.0) % Plt Count 168 138 L (150-450) k/uL Comprehensive Metabolic Panel 03/08/24 Range/Units 13:23 Sodium 129 L (137-145) mmol/L Potassium 4.8 (3.5-5.1) mmol/L Chloride 97 L (98-107) mmol/L Carbon Dioxide 20 L (22-30) mmol/L BUN 63 H (9-20) mg/dL Creatinine 3.52 H (0.66-1.25) mg/dL Glucose 84 (74-99) mg/dL Calcium 9.8 (8.4-10.2) mg/dL AST 57 (17-59) U/L ALT 35 (4-49) U/L Alkaline Phosphatase 49 (38-126) U/L Total Protein 6.2 L (6.3-8.2) g/dL Albumin 4.0 (3.5-5.0) g/dL Current Medications Generic Name Dose Route Start Last Admin Trade Name Freq PRN Reason Stop Dose Admin Atorvastatin Calcium 40 mg 03/08/24 21:00 03/08/24 20:49 Atorvastatin 40 Mg Tab PO 40 mg HS TIM Administration Clopidogrel Bisulfate 75 mg 03/09/24 09:00 Clopidogrel 75 Mg Tab PO DAILY TIM Fluoxetine HCl 40 mg 03/08/24 21:00 03/08/24 20:50 Fluoxetine Hcl 20 Mg Cap PO 40 mg HS TIM Administration Levothyroxine Sodium 50 mcg 03/09/24 06:30 03/09/24 06:22 Levothyroxine 50 Mcg Tab PO 50 mcg 0630 TIM Administration Methylphenidate HCl 30 mg 03/09/24 09:00 Methylphenidate Hcl 10 Mg Tab PO DAILY [facility] Metoprolol Succinate 50 mg 03/09/24 09:00 Metoprolol Succinate (Er) 50 Mg Tab.Er.24h PO DAILY [facility] Naloxone HCl 0.2 mg 03/08/24 16:13 Naloxone 0.4 Mg/Ml 1 Ml Vial IV Q2M PRN Opioid Reversal Rivaroxaban 15 mg 03/08/24 17:30 03/08/24 17:43 Rivaroxaban 15 Mg Tab PO 15 mg W/SUPPER TIM Administration Protocol Senna 8.6 mg 03/08/24 21:00 03/08/24 20:49 Sennosides 8.6 Mg Tab PO 8.6 mg BID TIM Administration Intake and Output 03/08/24 03/09/24 03/09/24 22:59 06:59 14:59 Output Total 35 Balance -35 Output: Post Void Residual 35 03/09/24 07:16 03/08/24 13:23
--- NOTE | 2024-03-09 16:44 | P.PN ---
Subjective Progress Note Date: 03/09/24 Hospital course: Patient is a 68-year-old male with history of CAD status post stent, bioprosthetic aortic valve, systolic heart failure with EF 35 to 40%, pacemaker, chronic atrial fibrillation, CKD stage II-III, hypertension, dyslipidemia presenting with altered mentation and weakness. He claims that he has been feeling unwell for the last 2 to 3 days. He has been taking his own medications, normally has sorts of his medications. He is not sure if he was taking extra Lasix or not. He denies any chest pain, shortness of breath, orthopnea, PND, abdominal pain, nausea, vomiting, urinary complaints. He denies any fevers or chills. Denies any smoking or alcohol use. His last bowel movement was 1 week ago. In the ED, temperature was 98, pulse 76, respiratory rate 18, blood pressure 75/41, saturating 97% on room air. WBC 9.1, hemoglobin 13.3, APTT 30.6, INR 1.3, sodium 129, bicarb 20, anion gap 12, creatinine 3.52, ammonia 23, troponin 0.041, TSH 2.85, salicylates, Tylenol, alcohol level negative. CT head did not show any acute process. Chest x-ray independently interpreted did not show any opacities. EKG independently interpreted, shows coarse atrial f ibrillation/flutter with occasional paced rhythm. In the ER, patient was given 1.5 L of normal saline with improvement in blood pressure. He is admitted for further workup for hypotension, weakness, acute encephalopathy. Cardiology also consulted. Subjective: 03/09/2024: Patient seen and examined at bedside. No acute events overnight. Denies any further lightheadedness Pertinent positives and negatives as discussed above, a complete review of systems was performed and all other systems are negative. Vital signs reviewed General: nontoxic, no distress, appears at stated age, obese Derm: warm, dry Head: atraumatic, normocephalic, symmetric Eyes: EOMI, no lid lag, anicteric sclera, pupils equal round reactive to light ENT: Nose and ears atraumatic Neck: No thyromegaly, supple Mouth: no lip lesion, mucus membranes moist Cardiovascular: S1S2 irregular, systolic murmur, 2+ pitting edema edema Lungs: clear to auscultation bilateral, no rhonchi, no rales, no wheeze, no accessory muscle use Abdominal: soft, nontender to palpation, no guarding, no appreciable organomegaly Ext: no gross muscle atrophy, muscle strength muscle strength 5 out of 5 in all 4 extremities, no contractures Neuro: CN II-XII grossly intact Psych: Alert, oriented, appropriate affect Data Received Today: Pertinent Labs: Hemoglobin 12.4, creatinine 2.02, troponin downtrending Imaging: No new imaging Assessment and Plan: Patient is a 78-year-old male with history of CAD status post stent, bioprosthetic aortic valve, systolic heart failure with ejection fraction 35 to 40%, pacemaker, chronic A-fib, CKD stage II3, hypertension, hyperlipidemia presenting with altered mental status and weakness. Active: Acute hypotension, likely medication induced, improving Hypovolemic hyponatremia, resolving HFrEF 35 to 40%, not in exacerbation Valvular heart disease, status post bioprosthetic aortic valve - Hold Lasix, Entresto, Aldactone, Farxiga, Lyrica - continue metoprolol 50 daily for now Check orthostatics - Cardiology note reviewed, obtain echo Prerenal acute kidney injury on CKD stage II-III, improving - Bladder scan PVR 35 mL NSTEMI, likely type II - Trend troponin: 0.041 => 0.033 Likely secondary to poor renal clearance Acute encephalopathy, likely metabolic, resolved - Urinalysis: Negative - Urine drug screen: Positive for opiates and marijuana - Blood cultures pending - Lactic acid: 0.8 Chronic persistent atrial fibrillation - Telemetry monitoring Constipation - Likely opioid induced - Started on senna 8.6 twice daily Chronic: History of CAD: Plavix 75 mg PO Dyslipidemia: atorvastatin 40 mg PO HS Hypothyroidism: synthroid 50 mcg PO Status post pacemaker Depression: Prozac 40 mg PO ADHD: Ritalin 30 mg PO daily Chronic back pain F: N/A E: Replete electrolytes as needed N: Heart healthy diet A: Independently ambulatory DVT ppx: Xarelto 15 mg PO Code status: Full code Anticipated discharge place: Pending clinical course Anticipated discharge time: Pending clinical course Yamilet Meza MD PGY-1 IM Dictation was produced using [employer] dictation software. please excuse any grammatical, word or spelling errors. I have seen and evaluated the patient today. Discussed with the resident and agree with the residents finding and plan as documented in the resident's note. Changes highlighted in blue font. Objective - Vital Signs Vital signs: Vital Signs Temp 98 F 03/08/24 12:41 Pulse 86 03/09/24 06:19 Resp 17 03/09/24 06:19 BP 90/71 03/09/24 06:19 Pulse Ox 94 L 03/09/24 06:19 FiO2 Intake & Output 03/08/24 03/09/24 03/09/24 18:59 06:59 18:59 Output Total 35 Balance -35 Weight 112.491 kg Output: Post Void Residual 35 - Labs CBC & Chem 7: 03/09/24 07:16 03/09/24 07:16 Labs: Abnormal Lab Results - Last 24 Hours (Table) 03/08/24 03/08/24 03/08/24 Range/Units 13:23 13:23 13:23 RBC 3.96 L (4.30-5.90) m/uL Hct 38.1 L (39.0-53.0) % PT 13.7 H (10.0-12.5) sec INR 1.3 H (<1.2) APTT 30.6 H (22.0-30.0) sec Sodium 129 L (137-145) mmol/L Chloride 97 L (98-107) mmol/L Carbon Dioxide 20 L (22-30) mmol/L BUN 63 H (9-20) mg/dL Creatinine 3.52 H (0.66-1.25) mg/dL Troponin I (0.000-0.034) ng/mL Total Protein 6.2 L (6.3-8.2) g/dL Urine Blood (Negative) Urine Mucus (None) /hpf Urine Opiates Screen (NotDetected) U Marijuana (THC) Screen (NotDetected) 03/08/24 03/08/24 03/08/24 Range/Units 13:23 16:30 16:30 RBC (4.30-5.90) m/uL Hct (39.0-53.0) % PT (10.0-12.5) sec INR (<1.2) APTT (22.0-30.0) sec Sodium (137-145) mmol/L Chloride (98-107) mmol/L Carbon Dioxide (22-30) mmol/L BUN (9-20) mg/dL Creatinine (0.66-1.25) mg/dL Troponin I 0.041 H* (0.000-0.034) ng/mL Total Protein (6.3-8.2) g/dL Urine Blood Small H (Negative) Urine Mucus Rare H (None) /hpf Urine Opiates Screen Detected H (NotDetected) U Marijuana (THC) Screen Detected H (NotDetected)
--- NOTE | 2024-03-09 17:00 | CA ---
Transthoracic Echo Report Name: Thony Jean Age: 68 Gender: M : 1955 Exam Date: 03/09/2024 10:33 Exam Location: [place] [facility] Ht (in): 75 Wt (lb): 248 Ordering Physician: Jessie Johnson Attending/Referring Phys: [id number], Elizabeth [employer] Technologist Peggy Soliz RDCS Procedure CPT: Indications: LV function, hx of CAD Cardiac Hx: Technical Quality: Technically difficult study Contrast 1: Definity Total Dose (mL): 1 Contrast 2: Total Dose (mL): MEASUREMENTS (Male / Female) Normal Values 2D ECHO LV Diastolic Diameter PLAX 5.1 cm 4.2 - 5.9 / 3.9 - 5.3 cm LV Systolic Diameter PLAX 3.5 cm IVS Diastolic Thickness 1.1 cm 0.6 - 1.0 / 0.6 - 0.9 cm LVPW Diastolic Thickness 1.3 cm 0.6 - 1.0 / 0.6 - 0.9 cm LV Relative Wall Thickness 0.5 LVOT Diameter 2.1 cm LV Diastolic Volume MOD BP 153.3 cm??? 67 - 155 / 56 - 104 cm??? LV Systolic Volume MOD BP 62.0 cm??? 22 - 58 / 19 - 49 cm??? LV Ejection Fraction MOD BP 59.5 % >= 55 % LV Cardiac Index MOD BP 2665.3 cm???/min???m??? LV Diastolic Volume MOD 4C 139.7 cm??? LV Systolic Volume MOD 4C 60.7 cm??? LV Ejection Fraction MOD 4C 56.5 % LV Cardiac Index MOD 4C 2306.7 cm???/min???m??? LV Diastolic Length 4C 8.2 cm LV Systolic Length 4C 6.5 cm LV Diastolic Volume MOD 2C 163.6 cm??? LV Systolic Volume MOD 2C 64.0 cm??? LV Ejection Fraction MOD 2C 60.9 % LV Cardiac Index MOD 2C 2910.9 cm???/min???m??? LV Diastolic Length 2C 8.4 cm LV Systolic Length 2C 6.6 cm DOPPLER AV Peak Velocity 182.4 cm/s AV Peak Gradient 13.3 mmHg AV Mean Velocity 126.3 cm/s AV Mean Gradient 7.3 mmHg AV Velocity Time Integral 37.5 cm LVOT Peak Velocity 107.4 cm/s LVOT Peak Gradient 4.6 mmHg LVOT Velocity Time Integral 21.9 cm LVOT Stroke Volume 79.1 cm??? LVOT Stroke Volume Index 32.9 ml/m??? LVOT Cardiac Index 2310.2 cm???/min???m??? AV Area Cont Eq vti 2.1 cm??? AV Area Cont Eq pk 2.1 cm??? TR Peak Velocity 228.5 cm/s TR Peak Gradient 20.9 mmHg Right Atrial Pressure 10.0 mmHg Pulmonary Artery Systolic Pressu 30.9 mmHg Right Ventricular Systolic Press 30.9 mmHg FINDINGS Left Ventricle Left ventricular ejection fraction is estimated at 40 %. Mildly increased left ventricular systolic volume. Left ventricular wall thickness normal. Right Ventricle Right ventricle not well visualized. Mild pulmonary hypertension. Right Atrium Right atrial dilatation. Left Atrium Left atrial dilatation. Mitral Valve Structurally normal mitral valve. Mild mitral regurgitation. Aortic Valve B0.ioprosthetic aortic valve without stenosis with a peak velocity of 1.8 m/s, peak gradient 13 mmHg, mean gradient 7 mmHg, and estimated aortic valve area of 2.1 cm???. [id number] aortic regurgitation. Tricuspid Valve Structurally normal tricuspid valve. [id number] tricuspid regurgitation. Pulmonic Valve Pulmonic valve not well visualized. Pericardium No pericardial effusion. Aorta Aortic annulus normal. CONCLUSIONS Left ventricular ejection fraction 40% RVSP 31 Mild mitral regurgitation Bioprosthetic aortic valve with normal function Mild to moderate aortic regurgitation Mild to moderate tricuspid regurgitation Previewed by: Dr. Monty Parker DO (Electronically Signed) Final Date: 09 March 2024 16:59
[2024-03-09] MEDS: HYDROcodone/APAP 10-325MG 1 EACH TAB PO PRN (18:01)
[2024-03-10] MEDS: MORPHINE SULFATE 2 MG/ML SYRINGE IVP STA (06:08)
[2024-03-10 08:12] LABS: Basophils % (A) 0 %; Eosinophils # (A) 0.1 k/uL (0-0.7); Eosinophils % (A) 2 %; HCT 42.2 % (39.0-53.0); HGB 13.3 gm/dL (13.0-17.5); Lymphocytes # (A) 1.4 k/uL (1.0-4.8); Lymphocytes % (A) 17 %; MCH 30.9 pg (25.0-35.0); MCHC 31.6 g/dL (31.0-37.0); MCV 97.9 fL (80.0-100.0); Mean Platelet Volume 7.3; Monocytes # (A) 0.6 k/uL (0-1.0); Monocytes % (A) 7 %; Neutrophils # (A) 6.1 k/uL (1.3-7.7); Neutrophils % (A) 72 %; Platelet Count 172 k/uL (150-450); RBC 4.31 m/uL (4.30-5.90); RDW 13.3 % (11.5-15.5); WBC 8.4 k/uL (3.8-10.6)
[2024-03-10 08:21] LABS: ALT 34 U/L (4-49); AST 46 U/L (17-59); African American GFR (CKD) 76 (>60 ml/min/1.73 sqM); Albumin 3.9 g/dL (3.5-5.0); Alkaline Phosphatase 59 U/L (38-126); Anion Gap 8 mmol/L; Blood Urea Nitrogen 25 mg/dL (9-20); Calcium 10.3 mg/dL (8.4-10.2); Carbon Dioxide 26 mmol/L (22-30); Chloride 107 mmol/L (98-107); Glucose 111 mg/dL (74-99); Magnesium 2.5 mg/dL (1.6-2.3); Non-African American GFR(CKD) 66 (>60 ml/min/1.73 sqM); Potassium 4.3 mmol/L (3.5-5.1); Sodium 141 mmol/L (137-145); Total Bilirubin 1.4 mg/dL (0.2-1.3); Total Protein 6.4 g/dL (6.3-8.2)
[2024-03-10] MEDS ORDERED: FUROSEMIDE 20 MG TAB PO SCH (09:00)
[2024-03-10] MEDS ORDERED: DAPAGLIFLOZIN PROPANEDIOL 10 MG TABLET PO SCH (09:30)
[2024-03-10] MEDS: FUROSEMIDE 20 MG TAB PO SCH (10:00)
[2024-03-10] MEDS: SACUBITRIL/VALSARTAN 24 MG-26 MG TABLET PO SCH (10:00)
--- NOTE | 2024-03-10 10:28 | P.DS ---
Providers Date of admission: 03/08/24 16:13 Expected date of discharge: 03/10/24 Attending physician: Weston Manning Consults: 03/08/24 16:13 Consult Physician Urgent Consulting Provider: [facility] Consult Reason/Comments: shant, heart failure history Do you want consulting provider notified?: Yes Primary care physician: [facility] Course: Discharge Diagnosis: Acute hypotension, likely medication induced Hypovolemic hyponatremia HFrEF 30 to 40% not in exacerbation Valvular heart disease, status post bioprosthetic aortic valve Prerenal acute kidney injury on CKD stage II3 NSTEMI likely type II Acute encephalopathy, likely metabolic Chronic persistent atrial fibrillation Constipation History of CAD Dyslipidemia Hypothyroidism Status post pacemaker Depression ADHD Chronic back Hospital Course: Patient is a 68-year-old male with history of CAD status post stent, bioprosthetic aortic valve, systolic heart failure with EF 35 to 40%, pacemaker, chronic atrial fibrillation, CKD stage II-III, hypertension, dyslipidemia presenting with altered mentation and weakness. He claims that he has been feeling unwell for the last 2 to 3 days. He has been taking his own medications, normally has sorts of his medications. He is not sure if he was taking extra Lasix or not. He denies any chest pain, shortness of breath, orthopnea, PND, abdominal pain, nausea, vomiting, urinary complaints. He denies any fevers or chills. Denies any smoking or alcohol use. His last bowel movement was 1 week ago. In the ED, temperature was 98, pulse 76, respiratory rate 18, blood pressure 75/41, saturating 97% on room air. WBC 9.1, hemoglobin 13.3, APTT 30.6, INR 1.3, sodium 129, bicarb 20, anion gap 12, creatinine 3.52, ammonia 23, troponin 0.041, TSH 2.85, salicylates, Tylenol, alcohol level negative. CT head did not show any acute process. Chest x-ray independently interpreted did not show any opacities. EKG independently interpreted, shows coarse atrial fibrillation/flutter with occasional paced rhythm. In the ER, patient was given 1.5 L of normal saline with improvement in blood pressure. He is admitted for further workup for hypotension, weakness, acute encephalopathy. Cardiology also consulted. Patient admitted to internal medicine service. Cardiology consulted. 03/09/2024: Patient seen and examined at bedside. No acute events overnight. Denies any further lightheadedness. 03/10/2024: This morning patient has no acute complaints and no reported events overnight. His blood pressure has improved. Cardiology changed oral Lasix from twice daily to once daily. Aldactone, Farxiga, Lasix, Entresto, and Nitrostat are being hold until he follows up with prizer hand for proper medical management for his CHF. He is to follow-up with his PCP and prizer hand. He is being discharged home self-care. Renal function has improved. Vital signs reviewed and stable. Physical examination: Vital signs reviewed General: non toxic, no distress, appears at stated age, normal weight Derm: no unusual rashes/lesions, warm Head: atraumatic, normocephalic, symmetric Eyes: EOMI, anicteric sclera, pupils equal round reactive to light ENT: Nose and ears atraumatic Neck: No cervical lymphadenopathy, trachea midline, supple Mouth: no lip lesion, mucus membranes moist Cardiovascular: S1S2 reg, no murmur, positive dorsalis pedis pulse bilateral, 2+ pitting edema Lungs: CTA bilateral, no rhonchi, no rales, no accessory muscle use Abdominal: soft, nontender to palpation, no guarding Ext: muscle strength 5 out of 5 in all 4 extremities grossly, no gross muscle atrophy Neuro: CN II-XI grossly intact, no gross focal neuro deficits Psych: Alert, oriented to person, place, and time A total of greater than 30 minutes of time were spent preparing this complex discharge summary. Patient was discharge on March 10, 2024 at 9:16 AM. Yamilet Meza MD PGY-1 IM Dictation was produced using [employer] dictation software. please excuse any grammatical, word or spelling errors. I have seen and evaluated the patient today. Discussed with the resident and agree with the residents finding and plan as documented in the resident's note. Changes highlighted in blue font. Patient Condition at Discharge: Stable Plan - Discharge Summary New Discharge Prescriptions: New Furosemide [Lasix] 20 mg PO DAILY 30 Days #30 tab Continue Pregabalin [Lyrica] 150 mg PO BID fentaNYL 100MCG/HR PATCH [Duragesic 100MCG/HR] 1 patch TRANSDERM Q72H Metoprolol Succinate (ER) [Toprol XL] 50 mg PO DAILY Levothyroxine Sodium [Synthroid] 50 mcg PO DAILY HYDROcodone/APAP 10-325MG [[place] 10-325] 1 tab PO BID PRN PRN Reason: Pain Atorvastatin [Lipitor] 40 mg PO HS #90 tablet Clopidogrel [Plavix] 75 mg PO DAILY Rivaroxaban [Xarelto] 20 mg PO W/SUPPER FLUoxetine HCL [PROzac] 40 mg PO HS Methylphenidate HCl 30 mg PO DAILY Discontinued Nitroglycerin Sl Tabs [Nitrostat] 0.4 mg SUBLINGUAL Q5M PRN PRN Reason: Chest Pain Sacubitril/Valsartan [Entresto 24 mg-26 mg Tablet] 1 tab PO BID Furosemide [Lasix] 20 mg PO BID Dapagliflozin Propanediol [Farxiga] 10 mg PO DAILY #90 tab Spironolactone [Aldactone] 25 mg PO DAILY #0 Discharge Medication List FLUoxetine HCL [PROzac] 40 mg PO HS 09/01/23 [History] HYDROcodone/APAP 10-325MG [[place] 10-325] 1 tab PO BID PRN 09/01/23 [History] Levothyroxine Sodium [Synthroid] 50 mcg PO DAILY 09/01/23 [History] Metoprolol Succinate (ER) [Toprol XL] 50 mg PO DAILY 09/01/23 [History] Pregabalin [Lyrica] 150 mg PO BID 09/01/23 [History] Rivaroxaban [Xarelto] 20 mg PO W/SUPPER 09/01/23 [History] fentaNYL 100MCG/HR PATCH [Duragesic 100MCG/HR] 1 patch TRANSDERM Q72H 09/01/23 [History] Atorvastatin [Lipitor] 40 mg PO HS #90 tablet 09/02/23 [Rx] Methylphenidate HCl 30 mg PO DAILY 01/16/24 [History] Clopidogrel [Plavix] 75 mg PO DAILY 02/16/24 [History] Furosemide [Lasix] 20 mg PO DAILY 30 Days #30 tab 03/10/24 [Rx] Follow up Appointment(s)/Referral(s): Katie Álvarez MD [Primary Care Provider] - 1-2 days Patient Instructions/Handouts: Heart Failure (DC), Syncope (DC), Hypotension (DC) Activity/Diet/Wound Care/Special Instructions: Please follow up with PCP and prizer hand. Discharge Disposition: HOME SELF-CARE
[2024-03-10 10:44] VITALS: BP 121/75; PULSE 79; TEMP 98.3
--- NOTE | 2024-03-10 11:57 | P.PN ---
Subjective HISTORY OF PRESENT ILLNESS: This is a 68-year-old male with a past medical history significant for coronary artery disease with previous stenting, aortic valve replacement, pacemaker implantation, hypertension, hyperlipidemia, and persistent atrial fibrillation. Patient follows with a special delivery messenger, Dr. Hilario. We have been asked to see the patient in consultation for MICHAEL and heart failure history. Patient examined at the bedside in the emergency room. The patient states that he came to the hospital because he was confused. He states that he was having trouble standing and walking. He believes that he may be dehydrated. He denies any chest pain. He denies any shortness of breath. Patient was found to have acute kidney injury with a creatinine of 3.51 on admission with a previous creatinine of 1.7 in January 2024. DIAGNOSTICS: - EKG reveals atrial fibrillation/flutter with PVCs - Chest xray negative for acute process - Laboratory data: - Current home cardiac medications include Farxiga 10 mg daily, Lipitor 40 mg daily, Plavix 25 mg daily, Lasix 20 mg twice a day, metoprolol succinate 50 mg daily, Xarelto 20 mg with dinner, Entresto 24-26 mg twice a day, Aldactone 25 mg daily - Most recent echocardiogram obtained in December 2023 revealed ejection fraction 35 to 40%, bioprosthetic aortic valve without stenosis with peak gradient 10 mmHg and mean gradient 5.1 mmHg, moderate perivalvular regurgitation, moderate tricuspid regurgitation, no evidence of pulmonary hypertension, moderate to severe mitral regurgitation, and moderate global hypokinesis of left ventricle - Cardiac catheterization history: Unknown 03/10/2024 Patient examined this morning at the bedside. He remains in the emergency room. He denies any chest pain or pressure. He denies any shortness of breath. Kidney function has normalized this morning. Vital signs are stable. Echocardiogram completed revealing ejection fraction of 40%, mild pulmonary hypertension, bioprosthetic aortic valve without stenosis with peak gradient 13 mmHg and mean gradient 7 mmHg, mild to moderate aortic regurgitation, and mild to moderate tricuspid regurgitation PHYSICAL EXAM: VITAL SIGNS: Reviewed. GENERAL: Well-developed in no acute distress. HEENT: Head is normocephalic. Pupils are equal, round. Sclerae anicteric. Mucous membranes of the mouth are moist. Neck supple. No JVD or thyromegaly LUNGS: Respirations even and unlabored. Lungs essentially clear to auscultation bilaterally. HEART: Paced rhythm. Regular rate and rhythm. S1 and S2 heard. Systolic and diastolic murmur noted. ABDOMEN: Soft. Nondistended. Nontender. EXTREMITIES: Normal range of motion. No clubbing or cyanosis. Peripheral pulses intact. No lower extremity edema NEUROLOGIC: Awake and alert. Oriented x 3. ASSESSMENT: Generalized weakness Acute on chronic kidney disease Coronary artery disease with previous stenting Ischemic cardiomyopathy, 35 to 40% Chronic congestive heart failure with reduced EF, currently not volume overloaded 1 isolated minimally elevated troponin, secondary to poor renal clearance, no evidence of myocardial injury or ischemia History of aortic valve replacement History of pacemaker implantation Persistent atrial fibrillation Hypertension Hyperlipidemia History of pacemaker implantation PLAN: Continue current cardiac medications Resume Lasix at a lower dose of 20 mg daily Continue to hold additional nephrotoxic agents Patient is stable for discharge home today Patient is to follow-up postdischarge with his primary special delivery messenger Nurse practitioner note has been reviewed by physician. Signing provider agrees with the documented findings, assessment, and plan of care documented by [employer] as a scribe. Objective - Vital Signs Vital signs: Vital Signs Temp 98.3 F 03/10/24 10:42 Pulse 79 03/10/24 10:42 Resp 18 03/10/24 10:42 BP 121/75 03/10/24 10:42 Pulse Ox 98 03/10/24 10:42 FiO2 Intake & Output 03/09/24 03/10/24 03/10/24 18:59 06:59 18:59 Other: Voiding Method Toilet Urinal - Labs CBC & Chem 7: 03/10/24 07:32 03/10/24 07:32 Labs: Abnormal Lab Results - Last 24 Hours (Table) 03/10/24 Range/Units 07:32 BUN 25 H (9-20) mg/dL Glucose 111 H (74-99) mg/dL Calcium 10.3 H (8.4-10.2) mg/dL Magnesium 2.5 H (1.6-2.3) mg/dL Total Bilirubin 1.4 H (0.2-1.3) mg/dL Microbiology - Last 24 Hours (Table) 03/08/24 18:16 Blood Culture - Preliminary Blood
== END 2024-03-10 10:49 | disposition home or self-care (01) | DRG 280 ==
LOC: EC 12:31 → 3SCARD 16:13
PROVIDERS: ADMIT Student in an Organized Health Care Education/Training Program; ATTEND Student in an Organized Health Care Education/Training Program
DX: I95.2 Hypotension due to drugs (principal); G93.41 Metabolic encephalopathy; I21.A1 Myocardial infarction type 2; I48.92 Unspecified atrial flutter; I13.0 Hypertensive heart and chronic kidney disease with heart failure and stage 1 through stage 4 chronic kidney disease, or unspecified chronic kidney disease; E87.1 Hypo-osmolality and hyponatremia; I48.19 Other persistent atrial fibrillation; E86.0 Dehydration; E03.9 Hypothyroidism, unspecified; F32.A Depression, unspecified; Z95.3 Presence of xenogenic heart valve; N18.30 Chronic kidney disease, stage 3 unspecified; N17.9 Acute kidney failure, unspecified; I50.22 Chronic systolic (congestive) heart failure; I25.5 Ischemic cardiomyopathy; E86.1 Hypovolemia; I25.10 Atherosclerotic heart disease of native coronary artery without angina pectoris; E78.5 Hyperlipidemia, unspecified; F90.9 Attention-deficit hyperactivity disorder, unspecified type; G89.29 Other chronic pain; I49.3 Ventricular premature depolarization; K59.00 Constipation, unspecified; T40.2X5A Adverse effect of other opioids, initial encounter; Z79.01 Long term (current) use of anticoagulants; Z79.02 Long term (current) use of antithrombotics/antiplatelets; Z79.84 Long term (current) use of oral hypoglycemic drugs; Z79.890 Hormone replacement therapy; Z79.899 Other long term (current) drug therapy; Z95.0 Presence of cardiac pacemaker; Z95.5 Presence of coronary angioplasty implant and graft
CPT/HCPCS: 36415; 70450; 71046; 80048; 80053; 80143; 80179; 80306; 80320; 81001; 82140; 83605; 83735; 83880; 84443; 84484; 85025; 85610; 85730; 87040; 93005; 93308; 96361; 96374; 99285